=== PATIENT | male | born 1950 | race Caucasian/White ===

== ENCOUNTER 2024-11-04 18:11 | Inpatient (IN) | payer OTHER ==
--- OUTSIDE RECORDS SUMMARY | 2024-11-04 18:18 | XMS REPORT | Continuity of Care Document ---
Author Name Unknown Address [address] [facility] [place] [address] [facility] Address [address] [facility] [address] [place] [address] Care Team Providers Care Director Of Financial Aid Name Role Phone ETHAN ROCA Primary Care Physician Jade vailable RADIOLOGY Attending Clinician Unavailable Radiology Attending Clinician Unavailable Doctor Unassigned, [place] Attending Clinician U abena Mead RN, Jorge Jessica Attending Clinician Unavail able TYE CANCINO Attending Clinician Unavailable Moi ANNE, Tobias B Attending Clinician [phone] Tye Cancino MD Attending Clinician [phone] ETHAN ROCA Admitting Clinician Unavai TYE Miller Admitting Clinician Unavailable Tye Cancino MD Admitting Clinician [phone] Payers Payer Name Policy Type Policy Number Effective Date Expirati on Date Source MEDICARE PART A \\T\\ [id number] 2014 00:00:00 Problems Condition Name Condition Details Condition Category Status Onset Date Resolution Date Last Treatment Date Treating Clinician Comments Source Osteomyeli tis Osteomyeli tis Disease Active 11-09 00:00: 00 [facility] No known active problems No known active problems Disease [facility] Allergies, Adverse Reactions, Alerts Allergy Name Allergy Type Status Severity Reaction(s) Onset Date Inactive Date Treating Clinician Comments Source NO KNOWN ALLERGIE S Drug Class Active [facility] Social History Social Habit Start Date Stop Date Quantity Comments Source History of tobacco use Current smoker [facility] Exposure to SARS-CoV-2 (event) Not sure [facility] Tobacco use and exposure 2021-11-09 00:00:00 2021-11-09 00:00:00 Smokeless tobacco non-user [facility] Education 2021-11-09 00:00:00 2021-11-09 00:00:00 15 [facility] Sex Assigned At 1950 00:00:00 1950 00:00:00 [facility] Smoking Status Start Date Stop Date Source Unknown if ever smoked Unive [facility] Ex-smoker 2021-11-09 00:00:00 2021-11-09 [facility] Ordered Medication Name Filled Medication Name Start Date Stop Date Current Medication? Ordering Clinician Indication Dosage Frequency Signature (SIG) Comments Components Source cephalexin 250 mg tablet 10-22 00:00: 00 Yes 1mg David Carballo gabapentin 100 mg capsule 2022-09 2- 00:00: 00 Yes David Carballo Harvoni 90 mg-400 mg tablet 03-01 00:00: 00 Yes David Carballo Harvoni 90 mg-400 mg tablet 02-08 00:00: 00 Yes [id number] David Carballo Harvoni 90 mg-400 mg tablet 01-12 00:00: 00 Yes David Carballo TAKE 1 TABLET ONCE DAILY. 01-11 00:00: 00 01-21 00:00 :00 No [id number] David Carballo TAKE 1 TABLET ONCE DAILY. 01-09 00:00: 00 01-21 00:00 :00 No [id number] David Carballo TAKE 3 TABLETS DAILY WITH FOOD. -30 00:00: 00 01-21 00:00 :00 No [id number] David Carballo TAKE 1 TABLET TODAY THEN 1/2 TABLET DAILY FOR 4 DAYS 4-26 00:00: 00 01-21 00:00 :00 No 500 David Carballo Dose Unknown 2021-09 2-15 00:00: 00 Yes David Carballo ceftriaxone 10 gram solution for injection 9-14 00:00: 00 Yes David Carballo ceftriaxone 1 gram solution for injection -19 00:00: 00 Yes David Carballo sulfamethox azole 800 mg-trimetho prim 160 mg tablet -18 00:00: 00 Yes David Carballo vancomycin 1,000 mg intravenous injection -03 00:00: 00 Yes 1 David Carballo ceftriaxone 1 gram solution for injection -19 00:00: 00 Yes 1 David Cabrallo Dose Unknown 08 00:00: 00 Yes David Carballo docusate sodium (DULCOLAX STOOL SOFTENER, DSS, ORAL) 11-12 14:35: 32 Yes Take by mouth daily. [facility] sulfamethox azole-trime thoprim 800-160 mg per tablet 11-12 12:30: 51 11-12 00:00 :00 No 1{tbl} Take 1 tablet by mouth 2 (two) times daily. [facility] vancomycin 1500 mg in NS 500 mL IV Piggyback RTU 1,500 mg 11-12 00:00: 00 Yes 1500mg 1,500 mg, IV Piggyback, Q12H ABX, First dose (after last modificati on) on Sun11/11/21 at 1800, Until Discontinu ed, Administer over 90 Minutes
Reason for Anti-Infec tive: Documented Infection& lt;br>Docu mented Infection Site: Bone
Du ration of Therapy: Other (see Comments) [facility] cefTRIAXone (ROCEPHIN) 1,000 mg in NaCl 0.9% (NS) 50 mL MINI-BAG 04 23:45: 00 Yes 1000mg 1,000 mg, IV Piggyback, Q24H ABX, First dose on Sun11/11/21 at 1745, Until Discontinu ed, Administer over 30 Minutes, 50 mL
Reas on for Anti-Infec tive: Documented Infection< br>Documen lore Infection Site: Bone
Du ration of Therapy: 14 days [facility] ceFEPIme (MAXIPIME) 2 g in NaCl 0.9% (NS) 100 mL MINI-BAG 11-11 02:00: 00 11-11 22:45 :12 No 2g 2 g, IV Piggyback, Q8H ABX, First dose (after last modificati on) on [place] 11/10/21 at 2000, Until Discontinu ed, Administer over 4 Hours, 100 mL
Reas on for Anti-Infec tive: Empiric Therapy for Suspected Infection< br>Empiric Therapy Site: Bone
Du ration of therapy: 7 days [facility] lidocaine 1% (PF) (XYLOCAINE) injection 5 mL 11-11 01:30: 00 11-11 16:30 :00 No 5mL 5 mL, Subcutaneo us, ONCE, 1 dose, On [place] 11/10/21 at 1930, Routine [facility] NaCl 0.9% (NS) injection 10 mL 11-11 01:21: 13 Yes 10mL 10 mL, Slow IV Push, PRN, Starting on Sun11/10/21 at 1921, Until Discontinu ed, Routine, line maincristianc e [facility] Dose Unknown 11-11 00:00: 00 Yes David Cabrallo enoxaparin (LOVENOX) injection 40 mg 11-10 15:00: 00 Yes 40mg 40 mg, Subcutaneo us, DAILY, First dose on Sun11/10/21 at 0900, Until Discontinu ed, Routine [facility] Sliding Scale Insulin-Reg ular + Fsbg Testing 11-10 13:30: 00 Yes Subcutaneo us, AC, First dose on Sun11/10/21 at 0730, Until Discontinu ed, Routine [facility] vancomycin 1250 mg in NS 250 mL RTU IV Piggyback 1,250 mg 11-10 12:00: 00 11-11 21:40 :33 No 15mg/kg 1,250 mg (rounded from 1,299 mg = 15 mg/kg ?86.6 kg), IV Piggyback, Q12H ABX, First dose (after last reorder) on Sun11/10/21 at 0600, Until Discontinu ed, Administer over 90 Minutes
Reason for Anti-Infec tive: Documented Infection< br>Documen lore Infection Site: Bone
Du ration of Therapy: Other (see Comments) [facility] docusate (COLACE) capsule 200 mg 11-10 06:00: 00 Yes 200mg 200 mg, Oral, DAILY, First dose on [place] 11/10/21 at 0000, Until Discontinu ed [facility] glucagon (GLUCAGEN DIAGNOSTIC KIT) injection 1 mg 11-10 03:02: 29 Yes 1mg 1 mg, Intramuscu lar, PRN, Starting on Sun11/09/21 at 2102, Until Discontinu ed, SUKHDEEP, Blood Glucose < or = 70 mg/dL and patient is unable to swallow or has mental changes. [facility] dextrose 50 % in water (D50W) injection 25 mL 11-10 03:02: 29 Yes 25mL 25 mL, Slow IV Push, PRN, Starting on Sun11/09/21 at 2102, Until Discontinu ed, SUKHDEEP, Blood Glucose < or = 70 mg/dL and patient is unable to swallow or has mental status changes. [facility] ondansetron (ZOFRAN (PF)) injection 4 mg 11-10 03:00: 14 Yes 4mg 4 mg, Slow IV Push, Q6HPRN, Starting on Sun11/09/21 at 2100, Until Discontinu ed, Routine, Nausea and Vomiting (N/V) [facility] acetaminoph en (TYLENOL) tablet 650 mg 11-10 02:59: 51 Yes 650mg 650 mg, Oral, Q6HPRN, Starting on Sun11/09/21 at 2058, Until Discontinu ed, Routine, Pain (scale 1-3) [facility] NaCl 0.9% (NS) bolus infusion 1,000 mL 11-10 01:15: 00 11-10 01:40 :00 No 1000mL at 999 mL/hr, 1,000 mL, IV Infusion, ONCE, 1 dose, On Sun11/09/21 at 1915, SUKHDEEP [facility] ceFEPIme (MAXIPIME) 2 g in NaCl 0.9% (NS) 100 mL MINI-BAG 11-10 01:00: 00 11-10 18:42 :35 No 2g 2 g, IV Piggyback, Q8H ABX, First dose on Sun11/09/21 at 1900, Until Discontinu ed, Administer over 30 Minutes, 100 mL
Reas on for Anti-Infec tive: Empiric Therapy for Suspected Infection< br>Empiric Therapy Site: Bone
Du ration of therapy: 7 days [facility] ceFEPIme (MAXIPIME) injection 2,000 mg 11-10 00:45: 00 11-10 00:45 :00 No 2000mg 2,000 mg, IV Piggyback, ONCE, 1 dose, On Sun11/09/21 at 1845, STAT
Re ason for Anti-Infec tive: Documented Infection< br>Documen lore Infection Site: Bone
Du ration of Therapy: Other (see Comments) [facility] vancomycin 1250 mg in NS 250 mL RTU IV Piggyback 1,250 mg 11-10 00:45: 00 11-10 01:24 :00 No 15mg/kg 1,250 mg (rounded from 1,299 mg = 15 mg/kg ?86.6 kg), IV Piggyback, ONCE, 1 dose, On Sun11/09/21 at 1845, Administer over 90 Minutes
Reason for Anti-Infec tive: Documented Infection< br>Documen lore Infection Site: Bone
Du ration of Therapy: Other (see Comments) [facility] Dose Unknown 11-10 00:00: 00 Yes David Carballo gadoteridol (PROHANCE-2 0 mL) injection 0.2 mL/kg 11-08 21:15: 00 11-08 21:01 :00 No [id number] .2mL/kg 0.2 mL/kg, Intravenou s, ONCE, 1 dose, On Sun11/08/21 at 1515, Routine [facility] Dose Unknown 11-07 00:00: 00 Yes David Carballo sulfamethox azole 800 mg-trimetho prim 160 mg tablet 11-07 00:00: 00 Yes [id number] David Carballo Dose Unknown 2- 00:00: 00 Yes David Carballo Immunizations Ordered Immunization Name Filled Immunization Name Date Status Comments Source influenza, seasonal vaccine, quadrivalent, adjuvanted, .5mL dose, preservative-free influenza, seasonal vaccine, quadrivalent, adjuvanted, .5mL dose, preservative-free 2024-07-22 00:00:00 Completed David Carballo Vital Signs Vital Name Observation Time Observation Value Comments S ource Systolic blood pressure 2021-11-12 18:04:00 117 mm[Hg] [facility] Diastolic blood pressure 2021-11-12 18:04:00 62 mm[Hg] [facility] Heart rate 2021-11-12 18:04:00 72 /min [facility] Body temperature 2021-11-12 18:04:00 36.17 [facility] Respiratory rate 2021-11-12 18:04:00 16 /min [facility] Oxygen saturation in Arterial blood by Pulse oximetry 2021-11-12 18:04:00 95 /min [facility] Body weight 2021-11-11 09:38:00 86.637 kg [facility] BMI 2021-11-11 09:38:00 25.20 kg/m2 [facility] Body height 2021-11-10 03:26:00 185.4 cm [facility] BP Systolic 2024-10-22 13:14:00 144 mm[Hg] Carlos Carballo BP Diastolic 2024-10-22 13:14:00 82 mm[Hg] Josesito Carballo Weight Measured 2024-10-22 13:14:00 205.60 pounds David Carballo Height Measured 2024-10-22 13:14:00 74.00 inches David Carballo Body Temperature 2024-10-22 13:14:00 97.50 degrees David F Haris Heart Rate 2024-10-22 13:14:00 75.00 /min Shayla en F Haris Respiratory Rate 2024-10-22 13:14:00 18.00 /min David F Haris BP Systolic 2024-07-22 13:38:00 131 mm[Hg] Step hen F Haris BP Diastolic 2024-07-22 13:38:00 78 mm[Hg] Josesito phen F Haris Weight Measured 2024-07-22 13:38:00 199.60 pounds David F Haris Height Measured 2024-07-22 13:38:00 74.00 inches David F Haris Body Temperature 2024-07-22 13:38:00 98.70 degrees David F Haris Heart Rate 2024-07-22 13:38:00 79.00 /min Shayla en F Haris Respiratory Rate 2024-07-22 13:38:00 18.00 /min David F Haris BP Systolic 2024-04-22 13:38:00 133 mm[Hg] Step hen F Haris BP Diastolic 2024-04-22 13:38:00 84 mm[Hg] Josesito phen F Haris Weight Measured 2024-04-22 13:38:00 204.10 pounds David F Haris Height Measured 2024-04-22 13:38:00 74.00 inches David F Haris Body Temperature 2024-04-22 13:38:00 97.60 degrees David F Haris Heart Rate 2024-04-22 13:38:00 77.00 /min Shayla en F Haris Respiratory Rate 2024-04-22 13:38:00 16.00 /min David F Haris BP Systolic 2024-01-30 13:28:00 112 mm[Hg] Step hen F Haris BP Diastolic 2024-01-30 13:28:00 70 mm[Hg] Josesito phen F Haris Weight Measured 2024-01-30 13:28:00 198.60 pounds David F Haris Height Measured 2024-01-30 13:28:00 74.00 inches David F Haris Body Temperature 2024-01-30 13:28:00 98.20 degrees David F Haris Heart Rate 2024-01-30 13:28:00 83.00 /min Shayla en F Haris Respiratory Rate 2024-01-30 13:28:00 18.00 /min David F Haris BP Systolic 2023-10-17 13:43:00 129 mm[Hg] Step hen F Haris BP Diastolic 2023-10-17 13:43:00 73 mm[Hg] Josesito phen F Haris Weight Measured 2023-10-17 13:43:00 198.00 pounds David F Haris Height Measured 2023-10-17 13:43:00 74.00 inches David F Haris Body Temperature 2023-10-17 13:43:00 98.20 degrees David F Haris Heart Rate 2023-10-17 13:43:00 75.00 /min Shayla en F Haris Respiratory Rate 2023-10-17 13:43:00 17.00 /min David F Haris BP Systolic 2023-08-20 11:33:00 135 mm[Hg] Step hen F Haris BP Diastolic 2023-08-20 11:33:00 82 mm[Hg] Josesito phen F Haris Weight Measured 2023-08-20 11:33:00 197.40 pounds David F Haris Height Measured 2023-08-20 11:33:00 74.00 inches David F Haris Body Temperature 2023-08-20 11:33:00 98.10 degrees David F Haris Heart Rate 2023-08-20 11:33:00 80.00 /min Shayla en F Haris Respiratory Rate 2023-08-20 11:33:00 19.00 /min David F Haris BP Systolic 2023-07-12 15:51:00 146 mm[Hg] Step hen F Haris BP Diastolic 2023-07-12 15:51:00 74 mm[Hg] Josesito phen F Haris Weight Measured 2023-07-12 15:51:00 201.80 pounds David F Haris Height Measured 2023-07-12 15:51:00 74.00 inches David F Haris Body Temperature 2023-07-12 15:51:00 98.20 degrees David F Haris Heart Rate 2023-07-12 15:51:00 78.00 /min Shayla en F Haris Respiratory Rate 2023-07-12 15:51:00 19.00 /min David F Haris BP Systolic 2023-05-03 14:52:00 151 mm[Hg] Step hen F Haris BP Diastolic 2023-05-03 14:52:00 79 mm[Hg] Josesito phen F Haris Weight Measured 2023-05-03 14:52:00 197.60 pounds David F Haris Height Measured 2023-05-03 14:52:00 74.00 inches David F Haris Body Temperature 2023-05-03 14:52:00 98.30 degrees David F Haris Heart Rate 2023-05-03 14:52:00 82.00 /min Shayla en F Haris Respiratory Rate 2023-05-03 14:52:00 19.00 /min David F Haris BP Systolic 2023-01-03 13:40:00 132 mm[Hg] Step hen F Haris BP Diastolic 2023-01-03 13:40:00 80 mm[Hg] Josesito phen F Haris Weight Measured 2023-01-03 13:40:00 206.00 pounds David F Haris Height Measured 2023-01-03 13:40:00 74.00 inches David F Haris Body Temperature 2023-01-03 13:40:00 98.20 degrees David F Haris Heart Rate 2023-01-03 13:40:00 85.00 /min Shayla en F Haris Respiratory Rate 2023-01-03 13:40:00 18.00 /min David F Haris BP Systolic 2022-12-14 13:34:00 125 mm[Hg] Step hen F Haris BP Diastolic 2022-12-14 13:34:00 72 mm[Hg] Josesito phen F Haris Weight Measured 2022-12-14 13:34:00 199.80 pounds David F Haris Height Measured 2022-12-14 13:34:00 74.00 inches David F Haris Body Temperature 2022-12-14 13:34:00 98.30 degrees David F Haris Heart Rate 2022-12-14 13:34:00 85.00 /min Shayla en F Haris Respiratory Rate 2022-12-14 13:34:00 18.00 /min David F Ahris BP Systolic 2022-11-14 13:28:00 138 mm[Hg] Step hen F Haris BP Diastolic 2022-11-14 13:28:00 81 mm[Hg] Josesito phen F Haris Weight Measured 2022-11-14 13:28:00 202.00 pounds David Carballo Height Measured 2022-11-14 13:28:00 74.00 inches David F Haris Body Temperature 2022-11-14 13:28:00 97.90 degrees David F Haris Heart Rate 2022-11-14 13:28:00 74.00 /min Shayla en F Haris Respiratory Rate 2022-11-14 13:28:00 18.00 /min David F Haris BP Systolic 2022-03-23 17:03:00 145 mm[Hg] Step hen F Haris BP Diastolic 2022-03-23 17:03:00 78 mm[Hg] Josesito phen F Haris Weight Measured 2022-03-23 17:03:00 178.00 pounds David F Haris Height Measured 2022-03-23 17:03:00 74.00 inches Dvaid F Haris Body Temperature 2022-03-23 17:03:00 98.40 degrees David F Haris Heart Rate 2022-03-23 17:03:00 80.00 /min Shayla en F Haris Respiratory Rate 2022-03-23 17:03:00 18.00 /min David F Haris BP Systolic 2021-12-26 17:48:00 148 mm[Hg] Step hen F Haris BP Diastolic 2021-12-26 17:48:00 78 mm[Hg] Josesito phen F Haris Weight Measured 2021-12-26 17:48:00 186.40 pounds Davidxavier Carballo Height Measured 2021-12-26 17:48:00 74.00 inches David F Haris Body Temperature 2021-12-26 17:48:00 98.30 degrees David F Haris Heart Rate 2021-12-26 17:48:00 78.00 /min Shayla en F Haris Respiratory Rate 2021-12-26 17:48:00 16.00 /min David F Haris Procedures Procedure Date / Time Performed Performing Clinician Source US ABDOMEN LIMITED WITH DOPPLER 2022-12-19 19:42:56 Requisition, Paper [facility] ASSIGNMENT OF BENEFITS 2022-12-19 18:47:22 Docto r Unassigned, [place] [facility] POCT GLUCOSE (AUTOMATED) 2021-11-12 18:05:00 Tye Cancino [facility] POCT GLUCOSE (AUTOMATED) 2021-11-12 14:04:00 Tye Cancino [facility] POCT GLUCOSE (AUTOMATED) 2021-11-11 22:46:00 Tye Cancino [facility] XR CHEST 1 VW 2021-11-11 19:36:32 Raf M[facility] ASPIRATE OR ABSCESS CULTURE(AEROBIC/ANAEROBIC ) 2021-11-11 13:53:00 Dinh Honeycutt [facility] BASIC METABOLIC PANEL (NA, K, CL, CO2, GLUCOSE, BUN, CREATININE, CA) 2021-11-11 12:27:00 Raf Mello [facility] VANCOMYCIN TROUGH 2021-11-11 12:27:00 Sharon Lewis [facility] CBC WITH DIFF 2021-11-11 12:27:00 Raf Mello [facility] POCT GLUCOSE (AUTOMATED) 2021-11-10 22:34:00 Tye Cancino [facility] BLOOD CULTURE SCREEN 2021-11-10 19:59:00 Dana Parker [facility] BLOOD CULTURE SCREEN 2021-11-10 19:51:00 Dana Parker [facility] C-REACTIVE PROTEIN 2021-11-10 19:51:00 Dana Parker [facility] SEDIMENTATION RATE 2021-11-10 19:51:00 Dana Parker [facility] POCT GLUCOSE (AUTOMATED) 2021-11-10 17:58:00 Tye Cancino [facility] BASIC METABOLIC PANEL (NA, K, CL, CO2, GLUCOSE, BUN, CREATININE, CA) 2021-11-10 08:55:00 Sharon Lewis [facility] CBC WITH DIFF 2021-11-10 08:50:00 Sharon Lewis [facility] GLYCOSYLATED HEMOGLOBIN (A1C) 2021-11-10 08:50:00 Joshua Wilson [facility] HB ECG ROUTINE & RHYTHM STRIP 2021-11-10 00:13:47 Tobias Prater [facility] LACTIC ACID WHOLE BLOOD 2021-11-09 22:44:00 Tobias Prater [facility] COVID-19 (ID NOW RAPID TESTING) 2021-11-09 22:43:00 Tobias Prater [facility] LAB ONLY COVID INTERPRETATION 2021-11-09 22:43:00 Tobias Prater [facility] COMP. METABOLIC PANEL ([id number]) 2021-11-09 22:43:00 Tobias Prater [facility] CBC WITH DIFF 2021-11-09 22:43:00 [facility]REFUSAL FOR DIAGNOSIS AND TREATMENT 2021-11-09 20:28:41 Doctor Unassigned, [place] [facility] MR FOOT LEFT W WO CONTRAST 2021-11-08 21:01:14 Requisition, Paper [facility] XR FOOT 3+ VW LEFT 2021-10-26 19:00:00 Requisition, Pa per [facility] ASSIGNMENT OF BENEFITS 2021-10-26 18:41:04 Docto r Unassigned, [place] [facility] Encounters Start Date/Time End Date/Time Encounter Type Admission Type Attending [facility] Care Facility Care Department Encounter ID Source 2024-10-22 13:13:16 2024-10-22 13:13:16 Outpatient [facility] [id number] David Carballo 2024-10-22 00:00:00 2024-10-22 00:00:00 Outpatient Visit [facility] [id number] David Carballo 2024-07-22 13:33:24 2024-07-22 13:33:24 Outpatient [facility] [id number] David Carballo 2024-07-22 00:00:00 2024-07-22 00:00:00 Outpatient Visit [facility] [id number] David Carballo 2024-06-19 13:43:43 2024-06-19 13:43:43 Outpatient [facility] [id number] David Carballo 2024-04-22 13:32:06 2024-04-22 13:32:06 Outpatient [facility] [place] [id number] David Carballo 2024-04-22 00:00:00 2024-04-22 00:00:00 Outpatient Visit [facility] [id number] David Carballo 2024-01-30 13:25:19 2024-01-30 13:25:19 Outpatient [facility] [id number] David Carballo 2024-01-30 00:00:00 2024-01-30 00:00:00 Outpatient Visit [facility] [id number] David Carballo 2023-10-17 13:32:29 2023-10-17 13:32:29 Outpatient [facility] [place] [id number] David Carballo 2023-08-20 11:27:01 2023-08-20 11:27:01 Outpatient [facility] [place] [id number] David Carballo 2023-07-12 15:37:27 2023-07-12 15:37:27 Outpatient [facility] [place] [id number] David Carballo 2023-05-03 14:34:38 2023-05-03 14:34:38 Outpatient [facility] [place] [id number] David Carballo 2023-01-08 17:13:17 2023-01-08 17:13:17 Outpatient [facility] [place] [id number] David Carballo 2022-12-19 13:48:42 2022-12-19 23:59:00 Outpatient [facility] [id number] [facility] 2022-12-19 13:48:42 2022-12-19 23:59:00 Hospital Encounter Radiology [facility] [id number] [id number] [id number] [facility] 2022-12-19 00:00:00 2022-12-19 00:00:00 Orders Only Doctor Unassigned, [place] [facility] [id number] [id number] [id number] [facility] 2022-12-18 13:42:50 2022-12-18 13:42:[address] [id number] David Pham Haris 2022-12-14 13:33:21 2022-12-14 13:33:21 [address] [id number] David Pham [place] 2022-11-28 13:04:17 2022-11-28 13:04:17 [address] [id number] David Pham [place] 2022-11-27 15:47:57 2022-11-27 15:47:57 [address] [id number] David Pham [place] 2022-11-14 13:17:04 2022-11-14 13:17:04 [address] [id number] David Pham [place] 2021-11-14 00:00:00 2021-11-14 00:00:00 Transition of Care Jorge Mead EDGARD TREVINO 1..840.114 [id number] [id number] [facility] 2021-11-09 14:42:00 2021-11-12 14:21:00 Inpatient X TYE CANCINO [facility] [id number] [facility] 2021-11-09 14:42:00 2021-11-12 14:21:00 Hospital Encounter Tobias Prater Yaman [facility] 1..840.114 350.1.13.10 [id number] [id number] [facility] 2021-11-08 13:26:21 2021-11-08 23:59:00 Outpatient [facility] [id number] [facility] 2021-11-08 13:26:21 2021-11-08 23:59:00 Hospital Encounter Radiology [facility] [id number] 350.1.13.10 [id number] [id number] [facility] 2021-10-26 12:41:52 2021-10-26 23:59:00 Hospital Encounter Radiology [facility] [id number] 350.1.13.10 [id number] [id number] [facility] 2021-10-26 12:41:52 2021-10-26 23:59:00 Outpatient [facility] [id number] [facility] 2021-10-26 00:00:00 2021-10-26 00:00:00 Orders Only Doctor Unassigned, [place] [facility] [id number] 350.1.13.10 [id number] [id number] [facility] Results Test Description Test Time Test Comments Results Result Co mments Source COMPREHENSIVE METABOLIC [id number] 04:21:23* Test Item Value Reference Range Interpretation Comme nts GLUCOSE (test code = 2217) 223 MG/DL 70-99 H BUN (test code = 2208) 30 MG/DL 8-23 H CREATININE (test code = 2214) 1.54 MG/DL 0.80-1.40 H eGFR (2020 CKD-EPI) (test code = 35949) 47 ML/MIN/1.73 >60 L The NKF-ASN Taskforce recommends use of Cystatin C to confirm eGFR inadults at risk for CKD. [facility] offers eGFR with Cystatin C-Creatinineusing the 2020 CKD-EPI eGFR_creat-cystat equation (order code 3057) toincrease the accuracy of estimated GFR. For more information, contactyour account administrator or see announcement [email or web address] CALC BUN/CREAT (test code = 2235) 19 RATIO 6-28 SODIUM (test code = 2231) 140 MEQ/L 133-146 POTASSIUM (test code = 2228) 4.8 MEQ/L 3.5-5.4 CHLORIDE (test code = 2215) 101 MEQ/L 95-107 CARBON DIOXIDE (test code = 2206) 28 MEQ/L 19-31 CALCIUM (test code = 220) 9.9 MG/DL 8.5-10.5 PROTEIN, TOTAL (test code = 9) 7.4 G/DL 6.1-8.3 ALBUMIN (test code = 220) 4.5 G/DL 3.5-5.2 CALC GLOBULIN (test code = 2240) 2.9 G/DL 1.9-3.7 CALC A/G RATIO (test code = 2234) 1.6 RATIO 1.0-2.6 BILIRUBIN, TOTAL (test code = 2206) 0.5 MG/DL <=1.2 ALKALINE PHOSPHATASE (test code = 2203) 56 U/L 40-125 AST (test code = 2217) 17 U/L 9-50 ALT (test code = 2218) 13 U/L 5-50 HEMOGLOBIN [id number] 02:55:37* Test Item Value Reference Range Interpretation Comme nts HEMOGLOBIN A1c (test code = 09803) 8.8 % 4.2-5.6 H CITIZEN OF [place] GUIDELINES FOR HGB A1C: PREDIABETES/INCREASED RISK . . . . . . . 5.7-6.4% DIAGNOSIS OF DIABETES . . . . . . . . . >=6.5% WITH CONFIRMATION OR APPROPRIATE SYMPTOMS NOTE: ASSAY MAY BE AFFECTED BY HEMOGLOBINOPATHIES (SICKLE CELL ANEMIA, S-C DISEASE, OTHERS) OR ARTIFICIALLY LOWERED BY DECREASED RED CELL SURVIVAL (HEMOLYTIC ANEMIAS, BLOOD LOSS, ETC.). CONSIDER ALTERNATE TESTING OR LABORATORY CONSULTATION. COMPREHENSIVE METABOLIC [id number] 00:00:00* Test Item Value Reference Range Interpretation Comme nts GLUCOSE (test code = 2216) 223 MG/DL BUN (test code = 2207) 30 MG/DL CREATININE (test code = 2214) 1.54 MG/DL eGFR (2020 CKD-EPI) (test co de = 78126) 47 ML/MIN/1.73 CALC BUN/CREAT (test code = 223) 19 RATIO SODIUM (test code = 223) 140 MEQ/L POTASSIUM (test code = 2228) 4.8 MEQ/L CHLORIDE (test code = 2215) 101 MEQ/L CARBON DIOXIDE (test code = 2206) 28 MEQ/L CALCIUM (test code = 2209) 9.9 MG/DL PROTEIN, TOTAL (test code = 2229) 7.4 G/DL ALBUMIN (test code = 2201) 4.5 G/DL CALC GLOBULIN (test code = 2240) 2.9 G/DL CALC A/G RATIO (test code = 2234) 1.6 RATIO BILIRUBIN, TOTAL (test code = 7) 0.5 MG/DL ALKALINE PHOSPHATASE (test code = 2204) 56 U/L AST (test code = 2218) 17 U/L ALT (test code = 2219) 13 U/L David Pham AustinHEMOGLOBIN [id number] 00:00:00* Test Item Value Reference Range Interpretation Comme nts HEMOGLOBIN A1c (test code = 52006) 8.8 % David Pham AustinALBUMIN/CREATININE RATIO, RANDOM [id number] 00:00:00* Test Item Value Reference Range Interpretation Comme nts CREATININE, URINE, CONC. (te st code = 2072) 156.4 MG/DL ALBUMIN, URINE, RANDOM (test code = 09339) 115.0 MG/DL CALC ALBUMIN/CREAT, RND (chrissy t code = 19235) 735 MG/G David Pham AustinHEMOGLOBIN [id number] 04:37:44* Test Item Value Reference Range Interpretation Comme nts HEMOGLOBIN A1c (test code = 28356) 7.6 % 4.2-5.6 H CITIZEN OF [employer] GUIDELINES FOR HGB A1C: PREDIABETES/INCREASED RISK . . . . . . . 5.7-6.4% DIAGNOSIS OF DIABETES . . . . . . . . . >=6.5% WITH CONFIRMATION OR APPROPRIATE SYMPTOMS NOTE: ASSAY MAY BE AFFECTED BY HEMOGLOBINOPATHIES (SICKLE CELL ANEMIA, S-C DISEASE, OTHERS) OR ARTIFICIALLY LOWERED BY DECREASED RED CELL SURVIVAL (HEMOLYTIC ANEMIAS, BLOOD LOSS, ETC.). CONSIDER ALTERNATE TESTING OR LABORATORY CONSULTATION. LIPID [id number] 02:57:44* Test Item Value Reference Range Interpretation Comme nts CHOLESTEROL (test code = 2210) 148 MG/DL <200 TRIGLYCERIDES (test code = 2232) 118 MG/DL <150 HDL CHOLESTEROL (test code = 2220) 33 MG/DL >39 L CALC LDL CHOL (test code = 2236) 94 MG/DL <100 NOTE: CALCULATED LDL IS BASED ON QUINN-LEMUS METHOD WHICHINCLUDES ADJUSTABLE TRIGLYCERIDE:VLDL CHOLESTEROL RATIO.THIS FACTOR VARIES BY MEASURED TRIGLYCERIDE AND NON-HDLCHOLESTEROL CONCENTRATIONS WITH INCREASED CALCULATED LDL SEENIN HIGHER TRIGLYCERIDE OR LOWER NON-HDL SPECIMENS. FOR MOREINFORMATION, SEE CLIENT ANNOUNCEMENT AT [email or web address] RISK RATIO LDL/HDL (test code = 2237) 2.85 RATIO <3.55 COMPREHENSIVE METABOLIC [id number] 02:57:44* Test Item Value Reference Range Interpretation Comme nts GLUCOSE (test code = 2216) 121 MG/DL 70-99 H BUN (test code = 2207) 22 MG/DL 8-23 CREATININE (test code = 2213) 1.43 MG/DL 0.80-1.40 H eGFR (2020 CKD-EPI) (test code = 81013) 51 ML/MIN/1.73 >60 L The NKF-ASN Taskforc e recommends use of Cystatin C to confirm eGFR inadults at risk for CKD. [facility] offers eGFR with Cystatin C-Creatinineusing the 2020 CKD-EPI eGFR_creat-cystat equation (order code 3057) toincrease the accuracy of estimated GFR. For more information, contactyour account administrator or see announcement [email or web address] CALC BUN/CREAT (test code = 2234) 15 RATIO 6-28 SODIUM (test code = 2230) 142 MEQ/L 133-146 POTASSIUM (test code = 2227) 4.4 MEQ/L 3.5-5.4 CHLORIDE (test code = 2214) 104 MEQ/L 95-107 CARBON DIOXIDE (test code = 2205) 23 MEQ/L 19-31 CALCIUM (test code = 2208) 9.1 MG/DL 8.5-10.5 PROTEIN, TOTAL (test code = 2228) 7.0 G/DL 6.1-8.3 ALBUMIN (test code = 2200) 4.1 G/DL 3.5-5.2 CALC GLOBULIN (test code = 2239) 2.9 G/DL 1.9-3.7 CALC A/G RATIO (test code = 2233) 1.4 RATIO 1.0-2.6 BILIRUBIN, TOTAL (test code = 2207) 0.6 MG/DL <=1.2 ALKALINE PHOSPHATASE (test code = 2204) 48 U/L 40-125 AST (test code = 2218) 25 U/L 9-50 ALT (test code = 2219) 21 U/L 5-50 UNLESS OTHERWISE INDICATED, ALL TESTING PERFORMED AT [facility] [address] [place] [id number] ASSISTANT PROGRAM DIRECTOR: HARIS MORENO M.D. [place] NUMBER [id number] [facility] [place]. [id number] HEMOGLOBIN [id number] 00:00:00* Test Item Value Reference Range Interpretation Comme nts HEMOGLOBIN A1c (test code = 05809) 7.6 % David CarballoLIPID [id number] 00:00:00* Test Item Value Reference Range Interpretation Comme nts CHOLESTEROL (test code = 2210) 148 MG/DL TRIGLYCERIDES (test code = 2232) 118 MG/DL HDL CHOLESTEROL (test code = 2220) 33 MG/DL CALC LDL CHOL (test code = 2237) 94 MG/DL RISK RATIO LDL/HDL (test cod e = 2238) 2.85 RATIO David CarballoCOMPREHENSIVE METABOLIC [id number] 00:00:00* Test Item Value Reference Range Interpretation Comme nts GLUCOSE (test code = 2217) 121 MG/DL BUN (test code = 2208) 22 MG/DL CREATININE (test code = 2214) 1.43 MG/DL eGFR (2020 CKD-EPI) (test co de = 43113) 51 ML/MIN/1.73 CALC BUN/CREAT (test code = 2235) 15 RATIO SODIUM (test code = 2231) 142 MEQ/L POTASSIUM (test code = 2228) 4.4 MEQ/L CHLORIDE (test code = 2215) 104 MEQ/L CARBON DIOXIDE (test code = 2206) 23 MEQ/L CALCIUM (test code = 2209) 9.1 MG/DL PROTEIN, TOTAL (test code = 2229) 7.0 G/DL ALBUMIN (test code = 2201) 4.1 G/DL CALC GLOBULIN (test code = 2240) 2.9 G/DL CALC A/G RATIO (test code = 2234) 1.4 RATIO BILIRUBIN, TOTAL (test code = 2207) 0.6 MG/DL ALKALINE PHOSPHATASE (test code = 2204) 48 U/L AST (test code = 2218) 25 U/L ALT (test code = 2219) 21 U/L David CarballoHEMOGLOBIN [id number] 00:00:00* Test Item Value Reference Range Interpretation Comme lyn HEMOGLOBIN A1c (test code = 37215) 7.6 % David CarballoLIPID [id number] 00:00:00* Test Item Value Reference Range Interpretation Comme nts CHOLESTEROL (test code = 2210) 148 MG/DL TRIGLYCERIDES (test code = 2232) 118 MG/DL HDL CHOLESTEROL (test code = 2220) 33 MG/DL CALC LDL CHOL (test code = 2237) 94 MG/DL RISK RATIO LDL/HDL (test cod e = 2238) 2.85 RATIO David CarballoCOMPREHENSIVE METABOLIC [id number] 00:00:00* Test Item Value Reference Range Interpretation Comme nts GLUCOSE (test code = 2217) 121 MG/DL BUN (test code = 2208) 22 MG/DL CREATININE (test code = 2214) 1.43 MG/DL eGFR (2020 CKD-EPI) (test co de = 07987) 51 ML/MIN/1.73 CALC BUN/CREAT (test code = 2235) 15 RATIO SODIUM (test code = 2231) 142 MEQ/L POTASSIUM (test code = 2228) 4.4 MEQ/L CHLORIDE (test code = 2215) 104 MEQ/L CARBON DIOXIDE (test code = 2206) 23 MEQ/L CALCIUM (test code = 2209) 9.1 MG/DL PROTEIN, TOTAL (test code = 2229) 7.0 G/DL ALBUMIN (test code = 2201) 4.1 G/DL CALC GLOBULIN (test code = 2240) 2.9 G/DL CALC A/G RATIO (test code = 2234) 1.4 RATIO BILIRUBIN, TOTAL (test code = 2207) 0.6 MG/DL ALKALINE PHOSPHATASE (test code = 2204) 48 U/L AST (test code = 2218) 25 U/L ALT (test code = 2219) 21 U/L David Pham AustinCOMPREHENSIVE METABOLIC [id number] 09:30:37* Test Item Value Reference Range Interpretation Comme nts GLUCOSE (test code = 2216) 136 MG/DL 70-99 H BUN (test code = 2207) 24 MG/DL 8-23 H CREATININE (test code = 2213) 1.39 MG/DL 0.80-1.40 eGFR (2020 CKD-EPI) (test code = 96053) 53 ML/MIN/1.73 >60 L The NKF-ASN Taskforce recommends use of Cystatin C to confirm eGFR inadults at risk for CKD. [facility] offers eGFR with Cystatin C-Creatinineusing the 2020 CKD-EPI eGFR_creat-cystat equation (order code 3057) toincrease the accuracy of estimated GFR. For more information, contactur account administrator or see announcement [email or web address] CALC BUN/CREAT (test code = 2234) 17 RATIO 6-28 SODIUM (test code = 2230) 143 MEQ/L 133-146 POTASSIUM (test code = 2227) 4.3 MEQ/L 3.5-5.4 CHLORIDE (test code = 2214) 105 MEQ/L 95-107 CARBON DIOXIDE (test code = 2205) 21 MEQ/L 19-31 CALCIUM (test code = 2208) 9.0 MG/DL 8.5-10.5 PROTEIN, TOTAL (test code = 2228) 7.0 G/DL 6.1-8.3 ALBUMIN (test code = 2200) 4.5 G/DL 3.5-5.2 CALC GLOBULIN (test code = 2240) 2.5 G/DL 1.9-3.7 CALC A/G RATIO (test code = 2233) 1.8 RATIO 1.0-2.6 BILIRUBIN, TOTAL (test code = 2206) 0.6 MG/DL <=1.2 ALKALINE PHOSPHATASE (test code = 2203) 51 U/L 40-125 AST (test code = 2218) 22 U/L 9-50 ALT (test code = 2219) 17 U/L 5-50 LIPID [id number] 09:30:37* Test Item Value Reference Range Interpretation Comme nts CHOLESTEROL (test code = 2209) 158 MG/DL <200 TRIGLYCERIDES (test code = 2232) 171 MG/DL <150 H HDL CHOLESTEROL (test code = 222) 32 MG/DL >39 L CALC LDL CHOL (test code = 2237) 99 MG/DL <100 NOTE: CALCULATED LDL IS BASED ON QUINN-LEMUS METHOD WHICHINCLUDES ADJUSTABLE TRIGLYCERIDE:VLDL CHOLESTEROL RATIO.THIS FACTOR VARIES BY MEASURED TRIGLYCERIDE AND NON-HDLCHOLESTEROL CONCENTRATIONS WITH INCREASED CALCULATED LDL SEENIN HIGHER TRIGLYCERIDE OR LOWER NON-HDL SPECIMENS. FOR MOREINFORMATION, SEE CLIENT ANNOUNCEMENT AT [email or web address] RISK RATIO LDL/HDL (test code = 2238) 3.09 RATIO <3.55 HEMOGLOBIN [id number] 04:35:11* Test Item Value Reference Range Interpretation Comme nts HEMOGLOBIN A1c (test code = 72794) 7.6 % 4.2-5.6 H CITIZEN OF [place] GUIDELINES FOR HGB A1C: PREDIABETES/INCREASED RISK . . . . . . . 5.7-6.4% DIAGNOSIS OF DIABETES . . . . . . . . . >=6.5% WITH CONFIRMATION OR APPROPRIATE SYMPTOMS NOTE: ASSAY MAY BE AFFECTED BY HEMOGLOBINOPATHIES (SICKLE CELL ANEMIA, S-C DISEASE, OTHERS) OR ARTIFICIALLY LOWERED BY DECREASED RED CELL SURVIVAL (HEMOLYTIC ANEMIAS, BLOOD LOSS, ETC.). CONSIDER ALTERNATE TESTING OR LABORATORY CONSULTATION. CBC W/AUTO DIFF WITH [id number] 03:39:00* Test Item Value Reference Range Interpretation Comme nts WBC (test code = 1001) 9.6 K/UL 3.5-11.0 RBC (test code = 1002) 5.55 M/UL 4.50-6.10 HEMOGLOBIN (test code = 1003) 16.6 G/DL 13.5-17.0 HEMATOCRIT (test code = 1004) 48.8 % 40.0-51.0 MCV (test code = 1005) 87.9 fL 80.0-99.0 MCH (test code = 1006) 29.9 PG 25.0-33.0 MCHC (test code = 1007) 34.0 G/DL 31.0-36.0 RDW (test code = 1038) 13.1 % 11.5-15.0 NEUTROPHILS (test code = 1008) 64.1 % LYMPHOCYTES (test code = 1010) 22.9 % MONOCYTES (test code = 1011) 9.4 % EOSINOPHILS (test code = 1012) 2.0 % BASOPHILS (test code = 1013) 1.0 % IMMATURE GRANULOCYTES (test code = 1036) 0.6 % NUCLEATED RBCS (test code = 1065) 0.0 /100 WBC'S See_Comment [Automated message] The system which generated this result transmitted reference range: 0.0. The reference range was not used to interpret this result as normal/abnormal. PLATELET COUNT (test code = 1015) 308 K/UL 130-400 ABSOLUTE NEUTROPHILS (test code = 1066) 6.11 K/UL 1.50-7.50 ABSOLUTE LYMPHOCYTES (test code = 1067) 2.19 K/UL 1.00-4.00 ABSOLUTE MONOCYTES (test code = 1068) 0.90 K/UL 0.20-1.00 ABSOLUTE EOSINOPHILS (test code = 1040) 0.19 K/UL 0.00-0.50 ABSOLUTE BASOPHILS (test code = 1069) 0.10 K/UL 0.00-0.20 ABS IMMATURE GRANULOCYTES (test code = 1020) 0.06 K/UL 0.00-0.10 ABS NUCLEATED RBCS (test code = 80528) 0.00 K/UL 0.00-0.11 UNLESS OTHER MCRAE INDICATED, ALL TESTING PERFORMED AT [facility] [address] [place] [address] ASSISTANT PROGRAM DIRECTOR: HARIS MORENO M.D. IA NUMBER [id number] [facility] [place] [place]. [id number] COMPREHENSIVE METABOLIC [id number] 00:00:00* Test Item Value Reference Range Interpretation Comme nts GLUCOSE (test code = 2217) 136 MG/DL BUN (test code = 2208) 24 MG/DL CREATININE (test code = 2214) 1.39 MG/DL eGFR (2020 CKD-EPI) (test co de = 89614) 53 ML/MIN/1.73 CALC BUN/CREAT (test code = 2235) 17 RATIO SODIUM (test code = 2231) 143 MEQ/L POTASSIUM (test code = 2228) 4.3 MEQ/L CHLORIDE (test code = 2215) 105 MEQ/L CARBON DIOXIDE (test code = 2206) 21 MEQ/L CALCIUM (test code = 2209) 9.0 MG/DL PROTEIN, TOTAL (test code = 2229) 7.0 G/DL ALBUMIN (test code = 2201) 4.5 G/DL CALC GLOBULIN (test code = 2240) 2.5 G/DL CALC A/G RATIO (test code = 2234) 1.8 RATIO BILIRUBIN, TOTAL (test code = 2207) 0.6 MG/DL ALKALINE PHOSPHATASE (test code = 2204) 51 U/L AST (test code = 2218) 22 U/L ALT (test code = 2219) 17 U/L David CarballoLIPID [id number] 00:00:00* Test Item Value Reference Range Interpretation Comme nts CHOLESTEROL (test code = 2210) 158 MG/DL TRIGLYCERIDES (test code = 2232) 171 MG/DL HDL CHOLESTEROL (test code = 2220) 32 MG/DL CALC LDL CHOL (test code = 2237) 99 MG/DL RISK RATIO LDL/HDL (test cod e = 2238) 3.09 RATIO David CarballoHEMOGLOBIN [id number] 00:00:00* Test Item Value Reference Range Interpretation Comme nts HEMOGLOBIN A1c (test code = 39045) 7.6 % David CarballoCBC W/AUTO [id number] 00:00:00* Test Item Value Reference Range Interpretation Comme nts WBC (test code = 1001) 9.6 K/UL RBC (test code = 1002) 5.55 M/UL HEMOGLOBIN (test code = 1003) 16.6 G/DL HEMATOCRIT (test code = 1004) 48.8 % MCV (test code = 1005) 87.9 fL MCH (test code = 1006) 29.9 PG MCHC (test code = 1007) 34.0 G/DL RDW (test code = 1038) 13.1 % NEUTROPHILS (test code = 1008) 64.1 % LYMPHOCYTES (test code = 1010) 22.9 % MONOCYTES (test code = 1011) 9.4 % EOSINOPHILS (test code = 1012) 2.0 % BASOPHILS (test code = 1013) 1.0 % IMMATURE GRANULOCYTES (test code = 1036) 0.6 % NUCLEATED RBCS (test code = 1065) 0.0 /100WBC'S PLATELET COUNT (test code = 1015) 308 K/UL ABSOLUTE NEUTROPHILS (test c ode = 1066) 6.11 K/UL ABSOLUTE LYMPHOCYTES (test c ode = 1067) 2.19 K/UL ABSOLUTE MONOCYTES (test cod e = 1068) 0.90 K/UL ABSOLUTE EOSINOPHILS (test c ode = 1040) 0.19 K/UL ABSOLUTE BASOPHILS (test cod e = 1069) 0.10 K/UL ABS IMMATURE GRANULOCYTES (t est code = 1020) 0.06 K/UL ABS NUCLEATED RBCS (test cod e = 23465) 0.00 K/UL David CarballoCOMPREHENSIVE METABOLIC [id number] 00:00:00* Test Item Value Reference Range Interpretation Comme nts GLUCOSE (test code = 2217) 136 MG/DL BUN (test code = 2208) 24 MG/DL CREATININE (test code = 2214) 1.39 MG/DL eGFR (2020 CKD-EPI) (test co de = 48607) 53 ML/MIN/1.73 CALC BUN/CREAT (test code = 2235) 17 RATIO SODIUM (test code = 2231) 143 MEQ/L POTASSIUM (test code = 2228) 4.3 MEQ/L CHLORIDE (test code = 2215) 105 MEQ/L CARBON DIOXIDE (test code = 2206) 21 MEQ/L CALCIUM (test code = 2209) 9.0 MG/DL PROTEIN, TOTAL (test code = 2229) 7.0 G/DL ALBUMIN (test code = 2201) 4.5 G/DL CALC GLOBULIN (test code = 2240) 2.5 G/DL CALC A/G RATIO (test code = 2234) 1.8 RATIO BILIRUBIN, TOTAL (test code = 2207) 0.6 MG/DL ALKALINE PHOSPHATASE (test code = 2204) 51 U/L AST (test code = 2218) 22 U/L ALT (test code = 2219) 17 U/L David CarballoLIPID [id number] 00:00:00* Test Item Value Reference Range Interpretation Comme nts CHOLESTEROL (test code = 2210) 158 MG/DL TRIGLYCERIDES (test code = 2232) 171 MG/DL HDL CHOLESTEROL (test code = 2220) 32 MG/DL CALC LDL CHOL (test code = 2237) 99 MG/DL RISK RATIO LDL/HDL (test cod e = 2238) 3.09 RATIO David CarballoHEMOGLOBIN [id number] 00:00:00* Test Item Value Reference Range Interpretation Comme nts HEMOGLOBIN A1c (test code = 76345) 7.6 % David CarballoCBC W/AUTO [id number] 00:00:00* Test Item Value Reference Range Interpretation Comme nts WBC (test code = 1001) 9.6 K/UL RBC (test code = 1002) 5.55 M/UL HEMOGLOBIN (test code = 1003) 16.6 G/DL HEMATOCRIT (test code = 1004) 48.8 % MCV (test code = 1005) 87.9 fL MCH (test code = 1006) 29.9 PG MCHC (test code = 1007) 34.0 G/DL RDW (test code = 1038) 13.1 % NEUTROPHILS (test code = 1008) 64.1 % LYMPHOCYTES (test code = 1010) 22.9 % MONOCYTES (test code = 1011) 9.4 % EOSINOPHILS (test code = 1012) 2.0 % BASOPHILS (test code = 1013) 1.0 % IMMATURE GRANULOCYTES (test code = 1036) 0.6 % NUCLEATED RBCS (test code = 1065) 0.0 /100WBC'S PLATELET COUNT (test code = 1015) 308 K/UL ABSOLUTE NEUTROPHILS (test c ode = 1066) 6.11 K/UL ABSOLUTE LYMPHOCYTES (test c ode = 1067) 2.19 K/UL ABSOLUTE MONOCYTES (test cod e = 1068) 0.90 K/UL ABSOLUTE EOSINOPHILS (test c ode = 1040) 0.19 K/UL ABSOLUTE BASOPHILS (test cod e = 1069) 0.10 K/UL ABS IMMATURE GRANULOCYTES (t est code = 1020) 0.06 K/UL ABS NUCLEATED RBCS (test cod e = 86298) 0.00 K/UL David CarballoCOMPREHENSIVE METABOLIC [id number] 00:00:00* Test Item Value Reference Range Interpretation Comme nts GLUCOSE (test code = 2217) 136 MG/DL BUN (test code = 2208) 24 MG/DL CREATININE (test code = 2214) 1.39 MG/DL eGFR (2020 CKD-EPI) (test co de = 29466) 53 ML/MIN/1.73 CALC BUN/CREAT (test code = 2235) 17 RATIO SODIUM (test code = 2231) 143 MEQ/L POTASSIUM (test code = 2228) 4.3 MEQ/L CHLORIDE (test code = 2215) 105 MEQ/L CARBON DIOXIDE (test code = 2206) 21 MEQ/L CALCIUM (test code = 2209) 9.0 MG/DL PROTEIN, TOTAL (test code = 2229) 7.0 G/DL ALBUMIN (test code = 2201) 4.5 G/DL CALC GLOBULIN (test code = 2240) 2.5 G/DL CALC A/G RATIO (test code = 2234) 1.8 RATIO BILIRUBIN, TOTAL (test code = 2207) 0.6 MG/DL ALKALINE PHOSPHATASE (test code = 2204) 51 U/L AST (test code = 2218) 22 U/L ALT (test code = 2219) 17 U/L David CarballoLIPID [id number] 00:00:00* Test Item Value Reference Range Interpretation Comme nts CHOLESTEROL (test code = 2210) 158 MG/DL TRIGLYCERIDES (test code = 2232) 171 MG/DL HDL CHOLESTEROL (test code = 2220) 32 MG/DL CALC LDL CHOL (test code = 2237) 99 MG/DL RISK RATIO LDL/HDL (test cod e = 2238) 3.09 RATIO David CarballoHEMOGLOBIN [id number] 00:00:00* Test Item Value Reference Range Interpretation Comme nts HEMOGLOBIN A1c (test code = 12836) 7.6 % David CarballoCBC W/AUTO [id number] 00:00:00* Test Item Value Reference Range Interpretation Comme nts WBC (test code = 1001) 9.6 K/UL RBC (test code = 1002) 5.55 M/UL HEMOGLOBIN (test code = 1003) 16.6 G/DL HEMATOCRIT (test code = 1004) 48.8 % MCV (test code = 1005) 87.9 fL MCH (test code = 1006) 29.9 PG MCHC (test code = 1007) 34.0 G/DL RDW (test code = 1038) 13.1 % NEUTROPHILS (test code = 1008) 64.1 % LYMPHOCYTES (test code = 1010) 22.9 % MONOCYTES (test code = 1011) 9.4 % EOSINOPHILS (test code = 1012) 2.0 % BASOPHILS (test code = 1013) 1.0 % IMMATURE GRANULOCYTES (test code = 1036) 0.6 % NUCLEATED RBCS (test code = 1065) 0.0 /100WBC'S PLATELET COUNT (test code = 1015) 308 K/UL ABSOLUTE NEUTROPHILS (test c ode = 1066) 6.11 K/UL ABSOLUTE LYMPHOCYTES (test c ode = 1067) 2.19 K/UL ABSOLUTE MONOCYTES (test cod e = 1068) 0.90 K/UL ABSOLUTE EOSINOPHILS (test c ode = 1040) 0.19 K/UL ABSOLUTE BASOPHILS (test cod e = 1069) 0.10 K/UL ABS IMMATURE GRANULOCYTES (t est code = 1020) 0.06 K/UL ABS NUCLEATED RBCS (test cod e = 54673) 0.00 K/UL David CarballoHEMOGLOBIN [id number] 02:34:47* Test Item Value Reference Range Interpretation Comme nts HEMOGLOBIN A1c (test code = 01601) 7.0 % 4.2-5.6 H CITIZEN OF [employer] GUIDELINES FOR HGB A1C: PREDIABETES/INCREASED RISK . . . . . . . 5.7-6.4% DIAGNOSIS OF DIABETES . . . . . . . . . >=6.5% WITH CONFIRMATION OR APPROPRIATE SYMPTOMS NOTE: ASSAY MAY BE AFFECTED BY HEMOGLOBINOPATHIES (SICKLE CELL ANEMIA, S-C DISEASE, OTHERS) OR ARTIFICIALLY LOWERED BY DECREASED RED CELL SURVIVAL (HEMOLYTIC ANEMIAS, BLOOD LOSS, ETC.). CONSIDER ALTERNATE TESTING OR LABORATORY CONSULTATION. UNLESS OTHERWISE INDICATED, ALL TESTING PERFORMED AT [facility] [address] [place] [address] ASSISTANT PROGRAM DIRECTOR: HARIS MORENO M.D. CLIA NUMBER [id number] [facility] [place] [place]. [id number] HEMOGLOBIN [id number] 00:00:00* Test Item Value Reference Range Interpretation Comme nts HEMOGLOBIN A1c (test code = 90223) 7.0 % David Pham AustinHEMOGLOBIN [id number] 00:00:00* Test Item Value Reference Range Interpretation Comme nts HEMOGLOBIN A1c (test code = 12983) 7.0 % David Pham AustinHEMOGLOBIN [id number] 00:00:00* Test Item Value Reference Range Interpretation Comme nts HEMOGLOBIN A1c (test code = 24311) 7.0 % David Pham AustinHEMOGLOBIN [id number] 00:00:00* Test Item Value Reference Range Interpretation Comme nts HEMOGLOBIN A1c (test code = 45195) 7.0 % David F AustinVITAMIN [id number] 21:50:57* Test Item Value Reference Range Interpretation Comme nts VITAMIN B1 (test code = 4952) 151 nmol/L 64-201 This test was de veloped and its performance characteristicsdetermined by [facility] ([facility]). It has not beencleared or approved by the U.S. Food and Drug Administration (FDA).The FDA has determined that such clearance or approval is notnecessary. This test is used for clinical purposes and should not beregarded as investigational or for research. [facility] is qualified toperform high complexity testing under the Clinical LaboratoryImprovement Amendments (CLIA). TESTING PERFORMED AT [facility] [address] [facility] [address], [address] [address] CLIA NO: [id number] VITAMIN [id number] 00:00:00* Test Item Value Reference Range Interpretation Comme nts VITAMIN B1 (test code = 4952) 151 nmol/L David CarballoVITAMIN [id number] 00:00:00* Test Item Value Reference Range Interpretation Comme nts VITAMIN B1 (test code = 4952) 151 nmol/L David CarballoVITAMIN [id number] 00:00:00* Test Item Value Reference Range Interpretation Comme nts VITAMIN B1 (test code = 4952) 151 nmol/L David CarballoVITAMIN [id number] 00:00:00* Test Item Value Reference Range Interpretation Comme nts VITAMIN B1 (test code = 4952) 151 nmol/L David CarballoCOPPER, SERUM/[id number] 15:29:55* Test Item Value Reference Range Interpretation Comme nts COPPER, SERUM/PLASMA (test code = 4219) 976 MCG/L 665-1480 This test was de veloped and its performance characteristicsdetermined by [facility] It has not beencleared or approved by the U.S. Food and Drug Administration (FDA).The FDA has determined that such clearance or approval is notrequired for clinical use of this test. [facility] is regulated under theClinical Laboratory Improvement Amendments of 1988 (CLIA) as qualifiedto perform high complexity clinical testing. UNLESS OTHERWISE INDICATED, ALL TESTING PERFORMED AT [facility] [address] [place] [id number] ASSISTANT PROGRAM DIRECTOR: HARIS MORENO M.D. CLIA NUMBER [id number] [facility] [place]. [id number] SEDIMENTATION [id number] 10:49:22* Test Item Value Reference Range Interpretation Comme nts SEDIMENTATION RATE (test cod e = 1017) 16 MM/HOUR 0-15 H VITAMIN [id number] 05:23:39* Test Item Value Reference Range Interpretation Comme nts VITAMIN B-12 (test code = 2840) 608 PG/ML 200-950 CBC W/AUTO DIFF WITH [id number] 05:05:50* Test Item Value Reference Range Interpretation Comme nts WBC (test code = 1001) 9.3 K/UL 3.5-11.0 RBC (test code = 1002) 5.69 M/UL 4.50-6.10 HEMOGLOBIN (test code = 1003) 16.6 G/DL 13.5-17.0 HEMATOCRIT (test code = 1004) 50.2 % 40.0-51.0 MCV (test code = 1005) 88.2 fL 80.0-99.0 MCH (test code = 1006) 29.2 PG 25.0-33.0 MCHC (test code = 1007) 33.1 G/DL 31.0-36.0 RDW (test code = 1038) 12.7 % 11.5-15.0 NEUTROPHILS (test code = 1008) 70.7 % LYMPHOCYTES (test code = 1010) 20.5 % MONOCYTES (test code = 1011) 7.0 % EOSINOPHILS (test code = 1012) 1.0 % BASOPHILS (test code = 1013) 0.5 % IMMATURE GRANULOCYTES (test code = 1036) 0.3 % NUCLEATED RBCS (test code = 1065) 0.0 /100 WBC'S See_Comment [Automated messa ge] The system which generated this result transmitted reference range: 0.0. The reference range was not used to interpret this result as normal/abnormal. PLATELET COUNT (test code = 1015) 366 K/UL 130-400 ABSOLUTE NEUTROPHILS (test code = 1066) 6.58 K/UL 1.50-7.50 ABSOLUTE LYMPHOCYTES (test code = 1067) 1.91 K/UL 1.00-4.00 ABSOLUTE MONOCYTES (test code = 1068) 0.65 K/UL 0.20-1.00 ABSOLUTE EOSINOPHILS (test code = 1040) 0.09 K/UL 0.00-0.50 ABSOLUTE BASOPHILS (test code = 1069) 0.05 K/UL 0.00-0.20 ABS IMMATURE GRANULOCYTES (test code = 1020) 0.03 K/UL 0.00-0.10 ABS NUCLEATED RBCS (test code = 85816) 0.00 K/UL 0.00-0.11 COMPREHENSIVE METABOLIC [id number] 04:39:08* Test Item Value Reference Range Interpretation Comme nts GLUCOSE (test code = 2216) 128 MG/DL 70-99 H BUN (test code = 2207) 21 MG/DL 8-23 CREATININE (test code = 2213) 1.39 MG/DL 0.80-1.40 eGFR (2020 CKD-EPI) (test code = 44277) 53 ML/MIN/1.73 >60 L The NKF-ASN Taskforce recommends use of Cystatin C to confirm eGFR inadults at risk for CKD. [facility] offers eGFR with Cystatin C-Creatinineusing the 2020 CKD-EPI eGFR_creat-cystat equation (order code 3057) toincrease the accuracy of estimated GFR. For more information, contactyour account administrator or see announcement [email or web address] CALC BUN/CREAT (test code = 2234) 15 RATIO 6-28 SODIUM (test code = 2230) 141 MEQ/L 133-146 POTASSIUM (test code = 2227) 4.7 MEQ/L 3.5-5.4 CHLORIDE (test code = 2214) 103 MEQ/L 95-107 CARBON DIOXIDE (test code = 2205) 27 MEQ/L 19-31 CALCIUM (test code = 2208) 9.6 MG/DL 8.5-10.5 PROTEIN, TOTAL (test code = 2228) 7.4 G/DL 6.1-8.3 ALBUMIN (test code = 2200) 4.8 G/DL 3.5-5.2 CALC GLOBULIN (test code = 2239) 2.6 G/DL 1.9-3.7 CALC A/G RATIO (test code = 2233) 1.8 RATIO 1.0-2.6 BILIRUBIN, TOTAL (test code = 2207) 0.6 MG/DL <=1.2 ALKALINE PHOSPHATASE (test code = 2204) 45 U/L 40-125 AST (test code = 2218) 21 U/L 9-50 ALT (test code = 2219) 20 U/L 5-50 COMPREHENSIVE METABOLIC [id number] 00:00:00* Test Item Value Reference Range Interpretation Comme nts GLUCOSE (test code = 2217) 128 MG/DL BUN (test code = 2208) 21 MG/DL CREATININE (test code = 2214) 1.39 MG/DL eGFR (2020 CKD-EPI) (test co de = 33196) 53 ML/MIN/1.73 CALC BUN/CREAT (test code = 2235) 15 RATIO SODIUM (test code = 2231) 141 MEQ/L POTASSIUM (test code = 2228) 4.7 MEQ/L CHLORIDE (test code = 2215) 103 MEQ/L CARBON DIOXIDE (test code = 2206) 27 MEQ/L CALCIUM (test code = 2209) 9.6 MG/DL PROTEIN, TOTAL (test code = 2229) 7.4 G/DL ALBUMIN (test code = 2201) 4.8 G/DL CALC GLOBULIN (test code = 2240) 2.6 G/DL CALC A/G RATIO (test code = 2234) 1.8 RATIO BILIRUBIN, TOTAL (test code = 2207) 0.6 MG/DL ALKALINE PHOSPHATASE (test code = 2204) 45 U/L AST (test code = 2218) 21 U/L ALT (test code = 2219) 20 U/L David Ankit HarisCBC W/AUTO [id number] 00:00:00* Test Item Value Reference Range Interpretation Comme nts WBC (test code = 1001) 9.3 K/UL RBC (test code = 1002) 5.69 M/UL HEMOGLOBIN (test code = 1003) 16.6 G/DL HEMATOCRIT (test code = 1004) 50.2 % MCV (test code = 1005) 88.2 fL MCH (test code = 1006) 29.2 PG MCHC (test code = 1007) 33.1 G/DL RDW (test code = 1038) 12.7 % NEUTROPHILS (test code = 1008) 70.7 % LYMPHOCYTES (test code = 1010) 20.5 % MONOCYTES (test code = 1011) 7.0 % EOSINOPHILS (test code = 1012) 1.0 % BASOPHILS (test code = 1013) 0.5 % IMMATURE GRANULOCYTES (test code = 1036) 0.3 % NUCLEATED RBCS (test code = 1065) 0.0 /100WBC'S PLATELET COUNT (test code = 1015) 366 K/UL ABSOLUTE NEUTROPHILS (test c ode = 1066) 6.58 K/UL ABSOLUTE LYMPHOCYTES (test c ode = 1067) 1.91 K/UL ABSOLUTE MONOCYTES (test cod e = 1068) 0.65 K/UL ABSOLUTE EOSINOPHILS (test c ode = 1040) 0.09 K/UL ABSOLUTE BASOPHILS (test cod e = 1069) 0.05 K/UL ABS IMMATURE GRANULOCYTES (t est code = 1020) 0.03 K/UL ABS NUCLEATED RBCS (test cod e = 51563) 0.00 K/UL David CarballoSEDIMENTATION [id number] 00:00:00* Test Item Value Reference Range Interpretation Comme nts SEDIMENTATION RATE (test cod e = 1017) 16 MM/HOUR David CarballoVITAMIN [id number] 00:00:00* Test Item Value Reference Range Interpretation Comme nts VITAMIN B-12 (test code = 2840) 608 PG/ML David CarballoCOPPER, SERUM/[id number] 00:00:00* Test Item Value Reference Range Interpretation Comme nts COPPER, SERUM/PLASMA (test c ode = 4219) 976 MCG/L David CarballoCOMPREHENSIVE METABOLIC [id number] 00:00:00* Test Item Value Reference Range Interpretation Comme nts GLUCOSE (test code = 2217) 128 MG/DL BUN (test code = 2208) 21 MG/DL CREATININE (test code = 2214) 1.39 MG/DL eGFR (2020 CKD-EPI) (test co de = 26891) 53 ML/MIN/1.73 CALC BUN/CREAT (test code = 2235) 15 RATIO SODIUM (test code = 2231) 141 MEQ/L POTASSIUM (test code = 2228) 4.7 MEQ/L CHLORIDE (test code = 2215) 103 MEQ/L CARBON DIOXIDE (test code = 2206) 27 MEQ/L CALCIUM (test code = 2209) 9.6 MG/DL PROTEIN, TOTAL (test code = 2229) 7.4 G/DL ALBUMIN (test code = 2201) 4.8 G/DL CALC GLOBULIN (test code = 2240) 2.6 G/DL CALC A/G RATIO (test code = 2234) 1.8 RATIO BILIRUBIN, TOTAL (test code = 2207) 0.6 MG/DL ALKALINE PHOSPHATASE (test code = 2204) 45 U/L AST (test code = 2218) 21 U/L ALT (test code = 2219) 20 U/L David Pham HarisCBC W/AUTO [id number] 00:00:00* Test Item Value Reference Range Interpretation Comme nts WBC (test code = 1001) 9.3 K/UL RBC (test code = 1002) 5.69 M/UL HEMOGLOBIN (test code = 1003) 16.6 G/DL HEMATOCRIT (test code = 1004) 50.2 % MCV (test code = 1005) 88.2 fL MCH (test code = 1006) 29.2 PG MCHC (test code = 1007) 33.1 G/DL RDW (test code = 1038) 12.7 % NEUTROPHILS (test code = 1008) 70.7 % LYMPHOCYTES (test code = 1010) 20.5 % MONOCYTES (test code = 1011) 7.0 % EOSINOPHILS (test code = 1012) 1.0 % BASOPHILS (test code = 1013) 0.5 % IMMATURE GRANULOCYTES (test code = 1036) 0.3 % NUCLEATED RBCS (test code = 1065) 0.0 /100WBC'S PLATELET COUNT (test code = 1015) 366 K/UL ABSOLUTE NEUTROPHILS (test c ode = 1066) 6.58 K/UL ABSOLUTE LYMPHOCYTES (test c ode = 1067) 1.91 K/UL ABSOLUTE MONOCYTES (test cod e = 1068) 0.65 K/UL ABSOLUTE EOSINOPHILS (test c ode = 1040) 0.09 K/UL ABSOLUTE BASOPHILS (test cod e = 1069) 0.05 K/UL ABS IMMATURE GRANULOCYTES (t est code = 1020) 0.03 K/UL ABS NUCLEATED RBCS (test cod e = 71791) 0.00 K/UL David Ankit HarisSEDIMENTATION [id number] 00:00:00* Test Item Value Reference Range Interpretation Comme nts SEDIMENTATION RATE (test cod e = 1017) 16 MM/HOUR David CarballoVITAMIN [id number] 00:00:00* Test Item Value Reference Range Interpretation Comme nts VITAMIN B-12 (test code = 2840) 608 PG/ML David CarballoCOPPER, SERUM/[id number] 00:00:00* Test Item Value Reference Range Interpretation Comme lyn COPPER, SERUM/PLASMA (test c ode = 4219) 976 MCG/L David CarballoCOMPREHENSIVE METABOLIC [id number] 00:00:00* Test Item Value Reference Range Interpretation Comme nts GLUCOSE (test code = 2217) 128 MG/DL BUN (test code = 2208) 21 MG/DL CREATININE (test code = 2214) 1.39 MG/DL eGFR (2020 CKD-EPI) (test co de = 44833) 53 ML/MIN/1.73 CALC BUN/CREAT (test code = 2235) 15 RATIO SODIUM (test code = 2231) 141 MEQ/L POTASSIUM (test code = 2228) 4.7 MEQ/L CHLORIDE (test code = 2215) 103 MEQ/L CARBON DIOXIDE (test code = 2206) 27 MEQ/L CALCIUM (test code = 2209) 9.6 MG/DL PROTEIN, TOTAL (test code = 2229) 7.4 G/DL ALBUMIN (test code = 2201) 4.8 G/DL CALC GLOBULIN (test code = 2240) 2.6 G/DL CALC A/G RATIO (test code = 2234) 1.8 RATIO BILIRUBIN, TOTAL (test code = 2207) 0.6 MG/DL ALKALINE PHOSPHATASE (test code = 2204) 45 U/L AST (test code = 2218) 21 U/L ALT (test code = 2219) 20 U/L David CarballoCBC W/AUTO [id number] 00:00:00* Test Item Value Reference Range Interpretation Comme nts WBC (test code = 1001) 9.3 K/UL RBC (test code = 1002) 5.69 M/UL HEMOGLOBIN (test code = 1003) 16.6 G/DL HEMATOCRIT (test code = 1004) 50.2 % MCV (test code = 1005) 88.2 fL MCH (test code = 1006) 29.2 PG MCHC (test code = 1007) 33.1 G/DL RDW (test code = 1038) 12.7 % NEUTROPHILS (test code = 1008) 70.7 % LYMPHOCYTES (test code = 1010) 20.5 % MONOCYTES (test code = 1011) 7.0 % EOSINOPHILS (test code = 1012) 1.0 % BASOPHILS (test code = 1013) 0.5 % IMMATURE GRANULOCYTES (test code = 1036) 0.3 % NUCLEATED RBCS (test code = 1065) 0.0 /100WBC'S PLATELET COUNT (test code = 1015) 366 K/UL ABSOLUTE NEUTROPHILS (test c ode = 1066) 6.58 K/UL ABSOLUTE LYMPHOCYTES (test c ode = 1067) 1.91 K/UL ABSOLUTE MONOCYTES (test cod e = 1068) 0.65 K/UL ABSOLUTE EOSINOPHILS (test c ode = 1040) 0.09 K/UL ABSOLUTE BASOPHILS (test cod e = 1069) 0.05 K/UL ABS IMMATURE GRANULOCYTES (t est code = 1020) 0.03 K/UL ABS NUCLEATED RBCS (test cod e = 09250) 0.00 K/UL David CarballoSEDIMENTATION [id number] 00:00:00* Test Item Value Reference Range Interpretation Comme nts SEDIMENTATION RATE (test cod e = 1017) 16 MM/HOUR David CarballoVITAMIN [id number] 00:00:00* Test Item Value Reference Range Interpretation Comme nts VITAMIN B-12 (test code = 2840) 608 PG/ML David CarballoCOPPER, SERUM/[id number] 00:00:00* Test Item Value Reference Range Interpretation Comme nts COPPER, SERUM/PLASMA (test c ode = 4219) 976 MCG/L David CarballoCOMPREHENSIVE METABOLIC [id number] 00:00:00* Test Item Value Reference Range Interpretation Comme nts GLUCOSE (test code = 2217) 128 MG/DL BUN (test code = 2208) 21 MG/DL CREATININE (test code = 2214) 1.39 MG/DL eGFR (2020 CKD-EPI) (test co de = 79553) 53 ML/MIN/1.73 CALC BUN/CREAT (test code = 2235) 15 RATIO SODIUM (test code = 2231) 141 MEQ/L POTASSIUM (test code = 2228) 4.7 MEQ/L CHLORIDE (test code = 2215) 103 MEQ/L CARBON DIOXIDE (test code = 2206) 27 MEQ/L CALCIUM (test code = 2209) 9.6 MG/DL PROTEIN, TOTAL (test code = 2229) 7.4 G/DL ALBUMIN (test code = 2201) 4.8 G/DL CALC GLOBULIN (test code = 2240) 2.6 G/DL CALC A/G RATIO (test code = 2234) 1.8 RATIO BILIRUBIN, TOTAL (test code = 2207) 0.6 MG/DL ALKALINE PHOSPHATASE (test code = 2204) 45 U/L AST (test code = 2218) 21 U/L ALT (test code = 2219) 20 U/L [facility] [id number] 00:00:00* Test Item Value Reference Range Interpretation Comme nts WBC (test code = 1001) 9.3 K/UL RBC (test code = 1002) 5.69 M/UL HEMOGLOBIN (test code = 1003) 16.6 G/DL HEMATOCRIT (test code = 1004) 50.2 % MCV (test code = 1005) 88.2 fL MCH (test code = 1006) 29.2 PG MCHC (test code = 1007) 33.1 G/DL RDW (test code = 1038) 12.7 % NEUTROPHILS (test code = 1008) 70.7 % LYMPHOCYTES (test code = 1010) 20.5 % MONOCYTES (test code = 1011) 7.0 % EOSINOPHILS (test code = 1012) 1.0 % BASOPHILS (test code = 1013) 0.5 % IMMATURE GRANULOCYTES (test code = 1036) 0.3 % NUCLEATED RBCS (test code = 1065) 0.0 /100WBC'S PLATELET COUNT (test code = 1015) 366 K/UL ABSOLUTE NEUTROPHILS (test c ode = 1066) 6.58 K/UL ABSOLUTE LYMPHOCYTES (test c ode = 1067) 1.91 K/UL ABSOLUTE MONOCYTES (test cod e = 1068) 0.65 K/UL ABSOLUTE EOSINOPHILS (test c ode = 1040) 0.09 K/UL ABSOLUTE BASOPHILS (test cod e = 1069) 0.05 K/UL ABS IMMATURE GRANULOCYTES (t est code = 1020) 0.03 K/UL ABS NUCLEATED RBCS (test cod e = 94805) 0.00 K/UL David CarballoSEDIMENTATION [id number] 00:00:00* Test Item Value Reference Range Interpretation Comme nts SEDIMENTATION RATE (test cod e = 1017) 16 MM/HOUR David CarballoVITAMIN [id number] 00:00:00* Test Item Value Reference Range Interpretation Comme lyn VITAMIN B-12 (test code = 2840) 608 PG/ML David CarballoCOPPER, SERUM/[id number] 00:00:00* Test Item Value Reference Range Interpretation Comme lyn COPPER, SERUM/PLASMA (test c ode = 4219) 976 MCG/L David CarballoHEMOGLOBIN [id number] 02:39:40* Test Item Value Reference Range Interpretation Comme lyn HEMOGLOBIN A1c (test code = 84271) 7.1 % 4.2-5.6 H CITIZEN OF [employer] GUIDELINES FOR HGB A1C: PREDIABETES/INCREASED RISK . . . . . . . 5.7-6.4% DIAGNOSIS OF DIABETES . . . . . . . . . >=6.5% WITH CONFIRMATION OR APPROPRIATE SYMPTOMS NOTE: ASSAY MAY BE AFFECTED BY HEMOGLOBINOPATHIES (SICKLE CELL ANEMIA, S-C DISEASE, OTHERS) OR ARTIFICIALLY LOWERED BY DECREASED RED CELL SURVIVAL (HEMOLYTIC ANEMIAS, BLOOD LOSS, ETC.). CONSIDER ALTERNATE TESTING OR LABORATORY CONSULTATION. UNLESS OTHERWISE INDICATED, ALL TESTING PERFORMED AT [facility] [address] [place] [address] ASSISTANT PROGRAM DIRECTOR: HARIS MORENO M.D. CLIA NUMBER [id number] [facility] [place]. [id number] HEMOGLOBIN [id number] 00:00:00* Test Item Value Reference Range Interpretation Comme lyn HEMOGLOBIN A1c (test code = 33826) 7.1 % David CarballoHEMOGLOBIN [id number] 00:00:00* Test Item Value Reference Range Interpretation Comme lyn HEMOGLOBIN A1c (test code = 42549) 7.1 % David CarballoHEMOGLOBIN [id number] 00:00:00* Test Item Value Reference Range Interpretation Comme nts HEMOGLOBIN A1c (test code = 42970) 7.1 % David CarballoHEMOGLOBIN [id number] 00:00:00* Test Item Value Reference Range Interpretation Comme nts HEMOGLOBIN A1c (test code = 74591) 7.1 % David Pham AustinHIV 1/2 4TH GEN, RFLX [id number] 05:13:07* Test Item Value Reference Range Interpretation Comme nts HIV 1/2 4TH GEN, RFLX CONF (test code = 3514) NON-REACTIVE NON-REACTIVE [facility] has impo rtant pathology staff changes effective 11/08/2022. New pathology staff will provide uninterrupted, excellent patient care and clinical consultation. See URL: [email or web address]. UNLESS OTHERWISE INDICATED, ALL TESTING PERFORMED AT [facility] [address] [place] [address] ASSISTANT PROGRAM DIRECTOR: HARIS MORENO M.D. CLIA NUMBER [id number] [facility] [place]. [id number] HIV AB/AG COMBO RFLX [id number] 00:00:00* Test Item Value Reference Range Interpretation Comme nts HIV 1/2 4TH GEN, RFLX CONF ( test code = 3514) NON-REACTIVE David Pham AustinHIV AB/AG COMBO RFLX [id number] 00:00:00* Test Item Value Reference Range Interpretation Comme nts HIV 1/2 4TH GEN, RFLX CONF ( test code = 3514) NON-REACTIVE David Pham AustinHIV AB/AG COMBO RFLX [id number] 00:00:00* Test Item Value Reference Range Interpretation Comme nts HIV 1/2 4TH GEN, RFLX CONF ( test code = 3514) NON-REACTIVE David Pham AustinHIV AB/AG COMBO RFLX [id number] 00:00:00* Test Item Value Reference Range Interpretation Comme nts HIV 1/2 4TH GEN, RFLX CONF ( test code = 3514) NON-REACTIVE David Pham AustinHEPATITIS C [id number] 15:39:14* Test Item Value Reference Range Interpretation Comme nts HEPATITIS C GENOTYPE (test code = 96585) 1a Assay method ology is real-time PCR amplification of the 5'UTR retLQ3k regions of the HCV genome utilizing the gopogo RealTime HCVGenotype II assay and Sage HCV Genotype Plus assay. Possiblegenotypes include 1a, 1b, 2, 3, 4, 5, and 6. [facility] has important pathology staff changes effective 11/08/2022. New pathology staff will provide uninterrupted, excellent patient care and clinical consultation. See URL: [email or web address]. UNLESS OTHERWISE INDICATED, ALL TESTING PERFORMED AT [facility] [address] [place] [address] ASSISTANT PROGRAM DIRECTOR: HARIS MORENO M.D. [place] NUMBER [id number] [facility] [place] [place]. [id number] HEPATITIS C [id number] 00:00:00* Test Item Value Reference Range Interpretation Comme nts HEPATITIS C GENOTYPE (test c ode = 54392) 1a David Pham AustinHEPATITIS C [id number] 00:00:00* Test Item Value Reference Range Interpretation Comme nts HEPATITIS C GENOTYPE (test c ode = 45713) da Pham AustinHEPATITIS C [id number] 00:00:00* Test Item Value Reference Range Interpretation Comme nts HEPATITIS C GENOTYPE (test c ode = 78527) 1a David Pham AustinHEPATITIS C [id number] 00:00:00* Test Item Value Reference Range Interpretation Comme nts HEPATITIS C GENOTYPE (test c ode = 32441) da CarballoHCV RNA, PCR [id number] 18:28:21* Test Item Value Reference Range Interpretation Comme nts HCV RNA, PCR QUANT (test code = 4571) [id number] IU/ML H HCV VIRAL LOG (test code = 25729) 6.190 LOG IU/ML H HCV RNA was dete cted, indicating current HCV infection. Range of quantitation is 15-100,000,000 IU/mL, (1.176-8.000 logIU/mL). Samples with HCV RNA detected below the limit ofquantitation are reported as <15 IU/mL. Assay methodology ispolymerase chain reaction (PCR) using the Janae Rachel 6800/8800system. The expected range is NOT DETECTED. [facility] has important pathology staff changes effective 11/08/2022. New pathology staff will provide uninterrupted, excellent patient care and clinical consultation. See URL: [email or web address]. UNLESS OTHERWISE INDICATED, ALL TESTING PERFORMED AT [facility] [address] [place] [address] ASSISTANT PROGRAM DIRECTOR: HARIS MORENO M.D. CLIA NUMBER [id number] [facility] [place]. [id number] HCV RNA, PCR QUANT [REFLEX]2022-11-30 00:00:00* Test Item Value Reference Range Interpretation Comme nts HCV RNA, PCR QUANT (test cod e = 4571) [id number] IU/ML HCV VIRAL LOG (test code = 39098) 6.190 LOGIU/ML David F AustinHCV RNA, PCR QUANT [REFLEX]2022-11-30 00:00:00* Test Item Value Reference Range Interpretation Comme nts HCV RNA, PCR QUANT (test cod e = 4571) 2745611 IU/ML HCV VIRAL LOG (test code = 41433) 6.190 LOGIU/ML David F AustinHCV RNA, PCR QUANT [REFLEX]2022-11-30 00:00:00* Test Item Value Reference Range Interpretation Comme nts HCV RNA, PCR QUANT (test cod e = 4571) 5739501 IU/ML HCV VIRAL LOG (test code = 96432) 6.190 LOGIU/ML David F AustinHCV RNA, PCR QUANT [REFLEX]2022-11-30 00:00:00* Test Item Value Reference Range Interpretation Comme nts HCV RNA, PCR QUANT (test cod e = 4571) 5435826 IU/ML HCV VIRAL LOG (test code = 24401) 6.190 LOGIU/ML David F AustinHEPATITIS C REFLEX [id number] 04:15:24* Test Item Value Reference Range Interpretation Comme nts HEPATITIS C ANTIBODY (test c ode = 4675) REACTIVE NON-REACTIVE A HEPATITIS C REFLEX [id number] 00:00:00* Test Item Value Reference Range Interpretation Comme nts HEPATITIS C ANTIBODY (test c ode = 4675) REACTIVE David F AustinHEPATITIS C REFLEX [id number] 00:00:00* Test Item Value Reference Range Interpretation Comme nts HEPATITIS C ANTIBODY (test c ode = 4675) REACTIVE Davdi F AustinHEPATITIS C REFLEX [id number] 00:00:00* Test Item Value Reference Range Interpretation Comme nts HEPATITIS C ANTIBODY (test c ode = 4675) REACTIVE David CarballoHEPATITIS C REFLEX [id number] 00:00:00* Test Item Value Reference Range Interpretation Comme nts HEPATITIS C ANTIBODY (test c ode = 4675) REACTIVE David F AustinOCCULT BLD,FECAL,IMMUNOASSAY [id number] 11:26:25* Test Item Value Reference Range Interpretation Comme nts OCCULT BLD, FECAL (test code = 08097) NEGATIVE NEGATIVE [facility] has important pathology staff changes effective 11/08/2022. New pathology staff will provide uninterrupted, excellent patient care and clinical consultation. See URL: [email or web address]. UNLESS OTHERWISE INDICATED, ALL TESTING PERFORMED AT [facility] [address] [place] [address] ASSISTANT PROGRAM DIRECTOR: HARIS MORENO M.D. CLIA NUMBER [id number] [facility] [place]. [id number] OCCULT BLD,FECAL,IMMUNOASSAY [id number] 00:00:00* Test Item Value Reference Range Interpretation Comme nts OCCULT BLD, FECAL (test code = 66453) NEGATIVE David F AustinOCCULT BLD,FECAL,IMMUNOASSAY [facility] [id number] 00:00:00* Test Item Value Reference Range Interpretation Comme nts OCCULT BLD, FECAL (test code = 48248) NEGATIVE David F AustinOCCULT BLD,FECAL,IMMUNOASSAY [facility] [id number] 00:00:00* Test Item Value Reference Range Interpretation Comme nts OCCULT BLD, FECAL (test code = 41884) NEGATIVE David F AustinOCCULT BLD,FECAL,IMMUNOASSAY [facility] [id number] 00:00:00* Test Item Value Reference Range Interpretation Comme nts OCCULT BLD, FECAL (test code = 07702) NEGATIVE David F AustinPSA, [id number] 05:54:40* Test Item Value Reference Range Interpretation Comme nts PSA, TOTAL (test code = 2606) 2.15 NG/ML See_Comment NOTE: Methodolog y is Janae Rachel Electrochemiluminescence Immunoassay traceable to WHO reference standard 96/760. [Automated message] The system which generated this result transmitted reference range: <=4.00. The reference range was not used to interpret this result as normal/abnormal. HEPATITIS PANEL, [id number] 05:25:07* Test Item Value Reference Range Interpretation Comme nts HEPATITIS A IgM (test code = 40993) NON-REACTIVE NON-REACTIVE HEPATITIS B CORE IgM (test code = 4644) NON-REACTIVE NON-REACTIVE HEPATITIS B SURF AG (test code = 2739) NON-REACTIVE NON-REACTIVE HEPATITIS C ANTIBODY (test code = 4675) REACTIVE NON-REACTIVE A INTERPRETATION HEPATITIS A: (test code = 2552) (NOTE) Hepatitis A serology shows no evidence of acute hepatitis A. INTERPRETATION HEPATITIS B: (test code = 97944) (NOTE) Hepatitis B serology shows no evidence of acute hepatitis B andno indication of exposure to hepatitis B virus in the previous felisa eight months. INTERPRETATION HEPATITIS C: (test code = 21778) (NOTE) Hepatitis C serology is consistent with exposure to hepatitis Cvirus. The CDC recommends performing a supplemental confirmatory teston initial positive hepatitis C antibody tests. HCV PCR quantitativecan be used to confirm these results on a new sample (See MMWR, 2003;52 RR-3). COMPREHENSIVE METABOLIC [id number] 03:59:09* Test Item Value Reference Range Interpretation Comme nts GLUCOSE (test code = 2217) 132 MG/DL 70-99 H BUN (test code = 2208) 27 MG/DL 8-23 H CREATININE (test code = 2214) 1.34 MG/DL 0.80-1.40 eGFR (2020 CKD-EPI) (test code = 96851) 56 ML/MIN/1.73 >60 L The NKF-ASN Taskforce recommends use of Cystatin C to confirm eGFR inadults at risk for CKD. [facility] offers eGFR with Cystatin C-Creatinineusing the 2020 CKD-EPI eGFR_creat-cystat equation (order code 3057) toincrease the accuracy of estimated GFR. For more information, contactyour account administrator or see announcement [email or web address] CALC BUN/CREAT (test code = 223) 20 RATIO 6-28 SODIUM (test code = 2230) 142 MEQ/L 133-146 POTASSIUM (test code = 2228) 5.2 MEQ/L 3.5-5.4 CHLORIDE (test code = 2215) 104 MEQ/L 95-107 CARBON DIOXIDE (test code = 2206) 25 MEQ/L 19-31 CALCIUM (test code = 220) 9.4 MG/DL 8.5-10.5 PROTEIN, TOTAL (test code = 222) 7.2 G/DL 6.1-8.3 ALBUMIN (test code = 2201) 4.6 G/DL 3.5-5.2 CALC GLOBULIN (test code = 2240) 2.6 G/DL 1.9-3.7 CALC A/G RATIO (test code = 2234) 1.8 RATIO 1.0-2.6 BILIRUBIN, TOTAL (test code = 2206) 0.6 MG/DL See_Comment [Automated me ssage] The system which generated this result transmitted reference range: <=1.2. The reference range was not used to interpret this result as normal/abnormal. ALKALINE PHOSPHATASE (test code = 2203) 41 U/L 40-125 AST (test code = 221) 44 U/L 9-50 ALT (test code = 221) 44 U/L 5-50 LIPID [id number] 03:59:09* Test Item Value Reference Range Interpretation Comme nts CHOLESTEROL (test code = 2210) 135 MG/DL <200 TRIGLYCERIDES (test code = 2232) 116 MG/DL <150 HDL CHOLESTEROL (test code = 0) 44 MG/DL >39 CALC LDL CHOL (test code = 2236) 71 MG/DL <100 NOTE: CALCULATED LDL IS BASED ON QUINN-LEMUS METHOD WHICHINCLUDES ADJUSTABLE TRIGLYCERIDE:VLDL CHOLESTEROL RATIO.THIS FACTOR VARIES BY MEASURED TRIGLYCERIDE AND NON-HDLCHOLESTEROL CONCENTRATIONS WITH INCREASED CALCULATED LDL SEENIN HIGHER TRIGLYCERIDE OR LOWER NON-HDL SPECIMENS. FOR MOREINFORMATION, SEE CLIENT ANNOUNCEMENT AT [email or web address] RATIO LDL/HDL (test code = 2238) 1.61 RATIO <3.55 [facility] has i mportant pathology staff changes effective 11/08/2022. New pathology staff will provide uninterrupted, excellent patient care and clinical consultation. See URL: [email or web address]. UNLESS OTHERWISE INDICATED, ALL TESTING PERFORMED AT [facility] [address] [place], [place] [id number] ASSISTANT PROGRAM DIRECTOR: HARIS MORENO M.D. CLIA NUMBER [id number] [facility] [place]. [id number] HEMOGLOBIN [id number] 03:43:21* Test Item Value Reference Range Interpretation Comme nts HEMOGLOBIN A1c (test code = 11138) 7.1 % 4.2-5.6 H CITIZEN OF [employer] GUIDELINES FOR HGB A1C: PREDIABETES/INCREASED RISK . . . . . . . 5.7-6.4% DIAGNOSIS OF DIABETES . . . . . . . . . >=6.5% WITH CONFIRMATION OR APPROPRIATE SYMPTOMS NOTE: ASSAY MAY BE AFFECTED BY HEMOGLOBINOPATHIES (SICKLE CELL ANEMIA, S-C DISEASE, OTHERS) OR ARTIFICIALLY LOWERED BY DECREASED RED CELL SURVIVAL (HEMOLYTIC ANEMIAS, BLOOD LOSS, ETC.). CONSIDER ALTERNATE TESTING OR LABORATORY CONSULTATION. CBC W/AUTO DIFF WITH [id number] 03:12:24* Test Item Value Reference Range Interpretation Comme nts WBC (test code = 1001) 8.2 K/UL 3.5-11.0 RBC (test code = 1002) 5.24 M/UL 4.50-6.10 HEMOGLOBIN (test code = 1003) 15.8 G/DL 13.5-17.0 HEMATOCRIT (test code = 1004) 45.3 % 40.0-51.0 MCV (test code = 1005) 86.5 fL 80.0-99.0 MCH (test code = 1006) 30.2 PG 25.0-33.0 MCHC (test code = 1007) 34.9 G/DL 31.0-36.0 RDW (test code = 1038) 12.6 % 11.5-15.0 NEUTROPHILS (test code = 1008) 66.1 % LYMPHOCYTES (test code = 1010) 22.0 % MONOCYTES (test code = 1011) 8.6 % EOSINOPHILS (test code = 1012) 1.7 % BASOPHILS (test code = 1013) 0.9 % IMMATURE GRANULOCYTES (test code = 1036) 0.7 % NUCLEATED RBCS (test code = 1065) 0.0 /100 WBC'S See_Comment [Automated [employer] ge] The system which generated this result transmitted reference range: 0.0. The reference range was not used to interpret this result as normal/abnormal. PLATELET COUNT (test code = 1015) 262 K/UL 130-400 ABSOLUTE NEUTROPHILS (test code = 1066) 5.42 K/UL 1.50-7.50 ABSOLUTE LYMPHOCYTES (test code = 1067) 1.81 K/UL 1.00-4.00 ABSOLUTE MONOCYTES (test code = 1068) 0.71 K/UL 0.20-1.00 ABSOLUTE EOSINOPHILS (test code = 1040) 0.14 K/UL 0.00-0.50 ABSOLUTE BASOPHILS (test code = 1069) 0.07 K/UL 0.00-0.20 ABS IMMATURE GRANULOCYTES (test code = 1020) 0.06 K/UL 0.00-0.10 ABS NUCLEATED RBCS (test code = 35368) 0.00 K/UL 0.00-0.11 ACUTE HEPATITIS [id number] 00:00:00* Test Item Value Reference Range Interpretation Comme nts HEPATITIS A IgM (test code = 47293) NON-REACTIVE HEPATITIS B CORE IgM (test c ode = 4644) NON-REACTIVE HEPATITIS B SURF AG (test co de = 2739) NON-REACTIVE HEPATITIS C ANTIBODY (test c ode = 4675) REACTIVE INTERPRETATION HEPATITIS A: (test code = 2552) (NOTE) INTERPRETATION HEPATITIS B: (test code = 63952) (NOTE) INTERPRETATION HEPATITIS C: (test code = 09271) (NOTE) David Pham HarisPSA, [id number] 00:00:00* Test Item Value Reference Range Interpretation Comme nts PSA, TOTAL (test code = 2606) 2.15 NG/ML David CarballoCBC W/AUTO [id number] 00:00:00* Test Item Value Reference Range Interpretation Comme nts WBC (test code = 1001) 8.2 K/UL RBC (test code = 1002) 5.24 M/UL HEMOGLOBIN (test code = 1003) 15.8 G/DL HEMATOCRIT (test code = 1004) 45.3 % MCV (test code = 1005) 86.5 fL MCH (test code = 1006) 30.2 PG MCHC (test code = 1007) 34.9 G/DL RDW (test code = 1038) 12.6 % NEUTROPHILS (test code = 1008) 66.1 % LYMPHOCYTES (test code = 1010) 22.0 % MONOCYTES (test code = 1011) 8.6 % EOSINOPHILS (test code = 1012) 1.7 % BASOPHILS (test code = 1013) 0.9 % IMMATURE GRANULOCYTES (test code = 1036) 0.7 % NUCLEATED RBCS (test code = 1065) 0.0 /100WBC'S PLATELET COUNT (test code = 1015) 262 K/UL ABSOLUTE NEUTROPHILS (test c ode = 1066) 5.42 K/UL ABSOLUTE LYMPHOCYTES (test c ode = 1067) 1.81 K/UL ABSOLUTE MONOCYTES (test cod e = 1068) 0.71 K/UL ABSOLUTE EOSINOPHILS (test c ode = 1040) 0.14 K/UL ABSOLUTE BASOPHILS (test cod e = 1069) 0.07 K/UL ABS IMMATURE GRANULOCYTES (t est code = 1020) 0.06 K/UL ABS NUCLEATED RBCS (test cod e = 79119) 0.00 K/UL David CarballoCOMPREHENSIVE METABOLIC [id number] 00:00:00* Test Item Value Reference Range Interpretation Comme nts GLUCOSE (test code = 2217) 132 MG/DL BUN (test code = 2208) 27 MG/DL CREATININE (test code = 2214) 1.34 MG/DL eGFR (2020 CKD-EPI) (test co de = 04318) 56 ML/MIN/1.73 CALC BUN/CREAT (test code = 2235) 20 RATIO SODIUM (test code = 2231) 142 MEQ/L POTASSIUM (test code = 2228) 5.2 MEQ/L CHLORIDE (test code = 2215) 104 MEQ/L CARBON DIOXIDE (test code = 2206) 25 MEQ/L CALCIUM (test code = 2209) 9.4 MG/DL PROTEIN, TOTAL (test code = 2229) 7.2 G/DL ALBUMIN (test code = 2201) 4.6 G/DL CALC GLOBULIN (test code = 2240) 2.6 G/DL CALC A/G RATIO (test code = 2234) 1.8 RATIO BILIRUBIN, TOTAL (test code = 2207) 0.6 MG/DL ALKALINE PHOSPHATASE (test code = 2204) 41 U/L AST (test code = 2218) 44 U/L ALT (test code = 2219) 44 U/L David Ankit HarisHEMOGLOBIN [id number] 00:00:00* Test Item Value Reference Range Interpretation Comme nts HEMOGLOBIN A1c (test code = 51269) 7.1 % David CarballoLIPID [id number] 00:00:00* Test Item Value Reference Range Interpretation Comme nts CHOLESTEROL (test code = 2210) 135 MG/DL TRIGLYCERIDES (test code = 2232) 116 MG/DL HDL CHOLESTEROL (test code = 2220) 44 MG/DL CALC LDL CHOL (test code = 2237) 71 MG/DL RISK RATIO LDL/HDL (test cod e = 2238) 1.61 RATIO David CarballoACUTE HEPATITIS [id number] 00:00:00* Test Item Value Reference Range Interpretation Comme nts HEPATITIS A IgM (test code = 20519) NON-REACTIVE HEPATITIS B CORE IgM (test c ode = 4644) NON-REACTIVE HEPATITIS B SURF AG (test co de = 2739) NON-REACTIVE HEPATITIS C ANTIBODY (test c ode = 4675) REACTIVE INTERPRETATION HEPATITIS A: (test code = 2552) (NOTE) INTERPRETATION HEPATITIS B: (test code = 09119) (NOTE) INTERPRETATION HEPATITIS C: (test code = 75413) (NOTE) David CarballoPSA, [id number] 00:00:00* Test Item Value Reference Range Interpretation Comme nts PSA, TOTAL (test code = 2606) 2.15 NG/ML David CarballoCBC W/AUTO [id number] 00:00:00* Test Item Value Reference Range Interpretation Comme nts WBC (test code = 1001) 8.2 K/UL RBC (test code = 1002) 5.24 M/UL HEMOGLOBIN (test code = 1003) 15.8 G/DL HEMATOCRIT (test code = 1004) 45.3 % MCV (test code = 1005) 86.5 fL MCH (test code = 1006) 30.2 PG MCHC (test code = 1007) 34.9 G/DL RDW (test code = 1038) 12.6 % NEUTROPHILS (test code = 1008) 66.1 % LYMPHOCYTES (test code = 1010) 22.0 % MONOCYTES (test code = 1011) 8.6 % EOSINOPHILS (test code = 1012) 1.7 % BASOPHILS (test code = 1013) 0.9 % IMMATURE GRANULOCYTES (test code = 1036) 0.7 % NUCLEATED RBCS (test code = 1065) 0.0 /100WBC'S PLATELET COUNT (test code = 1015) 262 K/UL ABSOLUTE NEUTROPHILS (test c ode = 1066) 5.42 K/UL ABSOLUTE LYMPHOCYTES (test c ode = 1067) 1.81 K/UL ABSOLUTE MONOCYTES (test cod e = 1068) 0.71 K/UL ABSOLUTE EOSINOPHILS (test c ode = 1040) 0.14 K/UL ABSOLUTE BASOPHILS (test cod e = 1069) 0.07 K/UL ABS IMMATURE GRANULOCYTES (t est code = 1020) 0.06 K/UL ABS NUCLEATED RBCS (test cod e = 33575) 0.00 K/UL David CarballoCOMPREHENSIVE METABOLIC [id number] 00:00:00* Test Item Value Reference Range Interpretation Comme nts GLUCOSE (test code = 2217) 132 MG/DL BUN (test code = 2208) 27 MG/DL CREATININE (test code = 2214) 1.34 MG/DL eGFR (2020 CKD-EPI) (test co de = 50582) 56 ML/MIN/1.73 CALC BUN/CREAT (test code = 2235) 20 RATIO SODIUM (test code = 2231) 142 MEQ/L POTASSIUM (test code = 2228) 5.2 MEQ/L CHLORIDE (test code = 2215) 104 MEQ/L CARBON DIOXIDE (test code = 2206) 25 MEQ/L CALCIUM (test code = 2209) 9.4 MG/DL PROTEIN, TOTAL (test code = 2229) 7.2 G/DL ALBUMIN (test code = 2201) 4.6 G/DL CALC GLOBULIN (test code = 2240) 2.6 G/DL CALC A/G RATIO (test code = 2234) 1.8 RATIO BILIRUBIN, TOTAL (test code = 2207) 0.6 MG/DL ALKALINE PHOSPHATASE (test code = 2204) 41 U/L AST (test code = 2218) 44 U/L ALT (test code = 2219) 44 U/L David CarballoHEMOGLOBIN [id number] 00:00:00* Test Item Value Reference Range Interpretation Comme nts HEMOGLOBIN A1c (test code = 56516) 7.1 % David CarballoLIPID [id number] 00:00:00* Test Item Value Reference Range Interpretation Comme nts CHOLESTEROL (test code = 2210) 135 MG/DL TRIGLYCERIDES (test code = 2232) 116 MG/DL HDL CHOLESTEROL (test code = 2220) 44 MG/DL CALC LDL CHOL (test code = 2237) 71 MG/DL RISK RATIO LDL/HDL (test cod e = 2238) 1.61 RATIO David Parks HEPATITIS [id number] 00:00:00* Test Item Value Reference Range Interpretation Comme nts HEPATITIS A IgM (test code = 99569) NON-REACTIVE HEPATITIS B CORE IgM (test c ode = 4644) NON-REACTIVE HEPATITIS B SURF AG (test co de = 2739) NON-REACTIVE HEPATITIS C ANTIBODY (test c ode = 4675) REACTIVE INTERPRETATION HEPATITIS A: (test code = 2552) (NOTE) INTERPRETATION HEPATITIS B: (test code = 12641) (NOTE) INTERPRETATION HEPATITIS C: (test code = 72673) (NOTE) David CarballoPSA, [id number] 00:00:00* Test Item Value Reference Range Interpretation Comme nts PSA, TOTAL (test code = 2606) 2.15 NG/ML David CarballoCBC W/AUTO [id number] 00:00:00* Test Item Value Reference Range Interpretation Comme nts WBC (test code = 1001) 8.2 K/UL RBC (test code = 1002) 5.24 M/UL HEMOGLOBIN (test code = 1003) 15.8 G/DL HEMATOCRIT (test code = 1004) 45.3 % MCV (test code = 1005) 86.5 fL MCH (test code = 1006) 30.2 PG MCHC (test code = 1007) 34.9 G/DL RDW (test code = 1038) 12.6 % NEUTROPHILS (test code = 1008) 66.1 % LYMPHOCYTES (test code = 1010) 22.0 % MONOCYTES (test code = 1011) 8.6 % EOSINOPHILS (test code = 1012) 1.7 % BASOPHILS (test code = 1013) 0.9 % IMMATURE GRANULOCYTES (test code = 1036) 0.7 % NUCLEATED RBCS (test code = 1065) 0.0 /100WBC'S PLATELET COUNT (test code = 1015) 262 K/UL ABSOLUTE NEUTROPHILS (test c ode = 1066) 5.42 K/UL ABSOLUTE LYMPHOCYTES (test c ode = 1067) 1.81 K/UL ABSOLUTE MONOCYTES (test cod e = 1068) 0.71 K/UL ABSOLUTE EOSINOPHILS (test c ode = 1040) 0.14 K/UL ABSOLUTE BASOPHILS (test cod e = 1069) 0.07 K/UL ABS IMMATURE GRANULOCYTES (t est code = 1020) 0.06 K/UL ABS NUCLEATED RBCS (test cod e = 26931) 0.00 K/UL David CarballoCOMPREHENSIVE METABOLIC [id number] 00:00:00* Test Item Value Reference Range Interpretation Comme nts GLUCOSE (test code = 2217) 132 MG/DL BUN (test code = 2208) 27 MG/DL CREATININE (test code = 2214) 1.34 MG/DL eGFR (2020 CKD-EPI) (test co de = 67291) 56 ML/MIN/1.73 CALC BUN/CREAT (test code = 2235) 20 RATIO SODIUM (test code = 2231) 142 MEQ/L POTASSIUM (test code = 2228) 5.2 MEQ/L CHLORIDE (test code = 2215) 104 MEQ/L CARBON DIOXIDE (test code = 2206) 25 MEQ/L CALCIUM (test code = 2209) 9.4 MG/DL PROTEIN, TOTAL (test code = 2229) 7.2 G/DL ALBUMIN (test code = 2201) 4.6 G/DL CALC GLOBULIN (test code = 2240) 2.6 G/DL CALC A/G RATIO (test code = 2234) 1.8 RATIO BILIRUBIN, TOTAL (test code = 2207) 0.6 MG/DL ALKALINE PHOSPHATASE (test code = 2204) 41 U/L AST (test code = 2218) 44 U/L ALT (test code = 2219) 44 U/L David CarballoHEMOGLOBIN [id number] 00:00:00* Test Item Value Reference Range Interpretation Comme nts HEMOGLOBIN A1c (test code = 60813) 7.1 % David CarballoLIPID [id number] 00:00:00* Test Item Value Reference Range Interpretation Comme nts CHOLESTEROL (test code = 2210) 135 MG/DL TRIGLYCERIDES (test code = 2232) 116 MG/DL HDL CHOLESTEROL (test code = 2220) 44 MG/DL CALC LDL CHOL (test code = 2237) 71 MG/DL RISK RATIO LDL/HDL (test cod e = 2238) 1.61 RATIO David CarballoACUTE HEPATITIS [id number] 00:00:00* Test Item Value Reference Range Interpretation Comme nts HEPATITIS A IgM (test code = 74226) NON-REACTIVE HEPATITIS B CORE IgM (test c ode = 4644) NON-REACTIVE HEPATITIS B SURF AG (test co de = 2739) NON-REACTIVE HEPATITIS C ANTIBODY (test c ode = 4634) REACTIVE INTERPRETATION HEPATITIS A: (test code = 2552) (NOTE) INTERPRETATION HEPATITIS B: (test code = 42618) (NOTE) INTERPRETATION HEPATITIS C: (test code = 75794) (NOTE) Davdi CarballoPSA, [id number] 00:00:00* Test Item Value Reference Range Interpretation Comme nts PSA, TOTAL (test code = 2606) 2.15 NG/ML David CarballoCBC W/AUTO [id number] 00:00:00* Test Item Value Reference Range Interpretation Comme nts WBC (test code = 1001) 8.2 K/UL RBC (test code = 1002) 5.24 M/UL HEMOGLOBIN (test code = 1003) 15.8 G/DL HEMATOCRIT (test code = 1004) 45.3 % MCV (test code = 1005) 86.5 fL MCH (test code = 1006) 30.2 PG MCHC (test code = 1007) 34.9 G/DL RDW (test code = 1038) 12.6 % NEUTROPHILS (test code = 1008) 66.1 % LYMPHOCYTES (test code = 1010) 22.0 % MONOCYTES (test code = 1011) 8.6 % EOSINOPHILS (test code = 1012) 1.7 % BASOPHILS (test code = 1013) 0.9 % IMMATURE GRANULOCYTES (test code = 1036) 0.7 % NUCLEATED RBCS (test code = 1065) 0.0 /100WBC'S PLATELET COUNT (test code = 1015) 262 K/UL ABSOLUTE NEUTROPHILS (test c ode = 1066) 5.42 K/UL ABSOLUTE LYMPHOCYTES (test c ode = 1067) 1.81 K/UL ABSOLUTE MONOCYTES (test cod e = 1068) 0.71 K/UL ABSOLUTE EOSINOPHILS (test c ode = 1040) 0.14 K/UL ABSOLUTE BASOPHILS (test cod e = 1069) 0.07 K/UL ABS IMMATURE GRANULOCYTES (t est code = 1020) 0.06 K/UL ABS NUCLEATED RBCS (test cod e = 92921) 0.00 K/UL David CarballoCOMPREHENSIVE METABOLIC [id number] 00:00:00* Test Item Value Reference Range Interpretation Comme nts GLUCOSE (test code = 2217) 132 MG/DL BUN (test code = 2208) 27 MG/DL CREATININE (test code = 2214) 1.34 MG/DL eGFR (2020 CKD-EPI) (test co de = 66552) 56 ML/MIN/1.73 CALC BUN/CREAT (test code = 2235) 20 RATIO SODIUM (test code = 2231) 142 MEQ/L POTASSIUM (test code = 2228) 5.2 MEQ/L CHLORIDE (test code = 2215) 104 MEQ/L CARBON DIOXIDE (test code = 2206) 25 MEQ/L CALCIUM (test code = 2209) 9.4 MG/DL PROTEIN, TOTAL (test code = 2229) 7.2 G/DL ALBUMIN (test code = 2201) 4.6 G/DL CALC GLOBULIN (test code = 2240) 2.6 G/DL CALC A/G RATIO (test code = 2234) 1.8 RATIO BILIRUBIN, TOTAL (test code = 2207) 0.6 MG/DL ALKALINE PHOSPHATASE (test code = 2204) 41 U/L AST (test code = 2218) 44 U/L ALT (test code = 2219) 44 U/L David CarballoHEMOGLOBIN [id number] 00:00:00* Test Item Value Reference Range Interpretation Comme nts HEMOGLOBIN A1c (test code = 02260) 7.1 % David Pham AustinLIPID [id number] 00:00:00* Test Item Value Reference Range Interpretation Comme nts CHOLESTEROL (test code = 2210) 135 MG/DL TRIGLYCERIDES (test code = 2232) 116 MG/DL HDL CHOLESTEROL (test code = 2220) 44 MG/DL CALC LDL CHOL (test code = 2237) 71 MG/DL RISK RATIO LDL/HDL (test cod e = 2238) 1.61 RATIO David CarballoHEMOGLOBIN [id number] 06:15:57* Test Item Value Reference Range Interpretation Comme nts HEMOGLOBIN A1c (test code = 99120) 6.0 % 4.2-5.6 H COMPREHENSIVE METABOLIC [id number] 05:16:24* Test Item Value Reference Range Interpretation Comme nts GLUCOSE (test code = 2217) 127 MG/DL 70-99 H BUN (test code = 2208) 22 MG/DL 8-23 CREATININE (test code = 2214) 1.29 MG/DL 0.80-1.40 eGFR (2020 CKD-EPI) (test code = 09577) 59 ML/MIN/1.73 >60 L CALC BUN/CREAT (test code = 2235) 17 RATIO 6-28 SODIUM (test code = 223) 143 MEQ/L 133-146 POTASSIUM (test code = 2228) 4.8 MEQ/L 3.5-5.4 CHLORIDE (test code = 2215) 106 MEQ/L 95-107 CARBON DIOXIDE (test code = 2206) 26 MEQ/L 19-31 CALCIUM (test code = 2209) 9.3 MG/DL 8.5-10.5 PROTEIN, TOTAL (test code = 222) 6.7 G/DL 6.1-8.3 ALBUMIN (test code = 220) 4.3 G/DL 3.5-5.2 CALC GLOBULIN (test code = 2240) 2.4 G/DL 1.9-3.7 CALC A/G RATIO (test code = 223) 1.8 RATIO 1.0-2.6 BILIRUBIN, TOTAL (test code = 2207) 0.6 MG/DL See_Comment [Automated me ssage] The system which generated this result transmitted reference range: <=1.2. The reference range was not used to interpret this result as normal/abnormal. ALKALINE PHOSPHATASE (test code = 2204) 40 U/L 40-125 AST (test code = 2218) 38 U/L 9-50 ALT (test code = 2219) 39 U/L 5-50 UNLESS OTHERWISE INDICATED, ALL TESTING PERFORMED [facility] [address] [place] [id number] ASSISTANT PROGRAM DIRECTOR: KIERA TANNER M.D. CLIA NUMBER [id number] [facility] [place]. [id number] COMPREHENSIVE METABOLIC [id number] 00:00:00* Test Item Value Reference Range Interpretation Comme nts GLUCOSE (test code = 2217) 127 MG/DL BUN (test code = 2208) 22 MG/DL CREATININE (test code = 2214) 1.29 MG/DL eGFR (2020 CKD-EPI) (test co de = 13780) 59 ML/MIN/1.73 CALC BUN/CREAT (test code = 2235) 17 RATIO SODIUM (test code = 2231) 143 MEQ/L POTASSIUM (test code = 2228) 4.8 MEQ/L CHLORIDE (test code = 2215) 106 MEQ/L CARBON DIOXIDE (test code = 2206) 26 MEQ/L CALCIUM (test code = 2209) 9.3 MG/DL PROTEIN, TOTAL (test code = 2229) 6.7 G/DL ALBUMIN (test code = 2201) 4.3 G/DL CALC GLOBULIN (test code = 2240) 2.4 G/DL CALC A/G RATIO (test code = 2234) 1.8 RATIO BILIRUBIN, TOTAL (test code = 2207) 0.6 MG/DL ALKALINE PHOSPHATASE (test code = 2204) 40 U/L AST (test code = 2218) 38 U/L ALT (test code = 2219) 39 U/L David Pham HarisHEMOGLOBIN [id number] 00:00:00* Test Item Value Reference Range Interpretation Comme nts HEMOGLOBIN A1c (test code = 69544) 6.0 % David Pham HarisCOMPREHENSIVE METABOLIC [id number] 00:00:00* Test Item Value Reference Range Interpretation Comme nts GLUCOSE (test code = 2217) 127 MG/DL BUN (test code = 2208) 22 MG/DL CREATININE (test code = 2214) 1.29 MG/DL eGFR (2020 CKD-EPI) (test co de = 52743) 59 ML/MIN/1.73 CALC BUN/CREAT (test code = 2235) 17 RATIO SODIUM (test code = 2231) 143 MEQ/L POTASSIUM (test code = 2228) 4.8 MEQ/L CHLORIDE (test code = 2215) 106 MEQ/L CARBON DIOXIDE (test code = 2206) 26 MEQ/L CALCIUM (test code = 2209) 9.3 MG/DL PROTEIN, TOTAL (test code = 2229) 6.7 G/DL ALBUMIN (test code = 2201) 4.3 G/DL CALC GLOBULIN (test code = 2240) 2.4 G/DL CALC A/G RATIO (test code = 2234) 1.8 RATIO BILIRUBIN, TOTAL (test code = 2207) 0.6 MG/DL ALKALINE PHOSPHATASE (test code = 2204) 40 U/L AST (test code = 2218) 38 U/L ALT (test code = 2219) 39 U/L David Pham AustinHEMOGLOBIN [id number] 00:00:00* Test Item Value Reference Range Interpretation Comme nts HEMOGLOBIN A1c (test code = 64931) 6.0 % David Pham AustinCOMPREHENSIVE METABOLIC [id number] 00:00:00* Test Item Value Reference Range Interpretation Comme nts GLUCOSE (test code = 2217) 127 MG/DL BUN (test code = 2208) 22 MG/DL CREATININE (test code = 2214) 1.29 MG/DL eGFR (2020 CKD-EPI) (test co de = 38432) 59 ML/MIN/1.73 CALC BUN/CREAT (test code = 2235) 17 RATIO SODIUM (test code = 2231) 143 MEQ/L POTASSIUM (test code = 2228) 4.8 MEQ/L CHLORIDE (test code = 2215) 106 MEQ/L CARBON DIOXIDE (test code = 2206) 26 MEQ/L CALCIUM (test code = 2209) 9.3 MG/DL PROTEIN, TOTAL (test code = 2229) 6.7 G/DL ALBUMIN (test code = 2201) 4.3 G/DL CALC GLOBULIN (test code = 2240) 2.4 G/DL CALC A/G RATIO (test code = 2234) 1.8 RATIO BILIRUBIN, TOTAL (test code = 2207) 0.6 MG/DL ALKALINE PHOSPHATASE (test code = 2204) 40 U/L AST (test code = 2218) 38 U/L ALT (test code = 2219) 39 U/L David Pham AustinHEMOGLOBIN [id number] 00:00:00* Test Item Value Reference Range Interpretation Comme nts HEMOGLOBIN A1c (test code = 74776) 6.0 % David Pham AustinCOMPREHENSIVE METABOLIC [id number] 00:00:00* Test Item Value Reference Range Interpretation Comme nts GLUCOSE (test code = 2217) 127 MG/DL BUN (test code = 2208) 22 MG/DL CREATININE (test code = 2214) 1.29 MG/DL eGFR (2020 CKD-EPI) (test co de = 30519) 59 ML/MIN/1.73 CALC BUN/CREAT (test code = 2235) 17 RATIO SODIUM (test code = 2231) 143 MEQ/L POTASSIUM (test code = 2228) 4.8 MEQ/L CHLORIDE (test code = 2215) 106 MEQ/L CARBON DIOXIDE (test code = 2206) 26 MEQ/L CALCIUM (test code = 2209) 9.3 MG/DL PROTEIN, TOTAL (test code = 2229) 6.7 G/DL ALBUMIN (test code = 2201) 4.3 G/DL CALC GLOBULIN (test code = 2240) 2.4 G/DL CALC A/G RATIO (test code = 2234) 1.8 RATIO BILIRUBIN, TOTAL (test code = 2207) 0.6 MG/DL ALKALINE PHOSPHATASE (test code = 2204) 40 U/L AST (test code = 2218) 38 U/L ALT (test code = 2219) 39 U/L David CarballoHEMOGLOBIN [id number] 00:00:00* Test Item Value Reference Range Interpretation Comme nts HEMOGLOBIN A1c (test code = 44093) 6.0 % David CarballoCOMPREHENSIVE METABOLIC [id number] 05:26:29* Test Item Value Reference Range Interpretation Comme nts GLUCOSE (test code = 2217) 125 MG/DL 70-99 H BUN (test code = 2208) 28 MG/DL 8-23 H CREATININE (test code = 2214) 1.66 MG/DL 0.80-1.40 H eGFR (2020 CKD-EPI) (test code = 38806) 44 ML/MIN/1.73 >60 L CALC BUN/CREAT (test code = 2235) 17 RATIO 6-28 SODIUM (test code = 2231) 148 MEQ/L 133-146 H POTASSIUM (test code = 2228) 4.3 MEQ/L 3.5-5.4 CHLORIDE (test code = 2215) 109 MEQ/L 95-107 H CARBON DIOXIDE (test code = 2206) 25 MEQ/L 19-31 CALCIUM (test code = 2209) 8.8 MG/DL 8.5-10.5 PROTEIN, TOTAL (test code = 2229) 6.7 G/DL 6.1-8.3 ALBUMIN (test code = 2201) 4.1 G/DL 3.5-5.2 CALC GLOBULIN (test code = 2240) 2.6 G/DL 1.9-3.7 CALC A/G RATIO (test code = 2234) 1.6 RATIO 1.0-2.6 BILIRUBIN, TOTAL (test code = 2207) 0.5 MG/DL See_Comment [Automated me ssage] The system which generated this result transmitted reference range: <=1.2. The reference range was not used to interpret this result as normal/abnormal. ALKALINE PHOSPHATASE (test code = 2204) 46 U/L 40-125 AST (test code = 2218) 38 U/L 9-50 ALT (test code = 2219) 37 U/L 5-50 UNLESS OTHERWISE INDICATED, ALL TESTING PERFORMED [facility] [employer] [address] [place] [address] ASSISTANT PROGRAM DIRECTOR: KIERA TANNER M.D. IA NUMBER [id number] [facility] [place]. [id number] HEMOGLOBIN [id number] 03:54:22* Test Item Value Reference Range Interpretation Comme nts HEMOGLOBIN A1c (test code = 34770) 6.6 % 4.2-5.6 H CITIZEN OF [employer] GUIDELINES FOR HGB A1C: PREDIABETES/INCREASED RISK . . . . . . . 5.7-6.4% DIAGNOSIS OF DIABETES . . . . . . . . . >=6.5% WITH CONFIRMATION OR APPROPRIATE SYMPTOMS NOTE: ASSAY MAY BE AFFECTED BY HEMOGLOBINOPATHIES (SICKLE CELL ANEMIA, S-C DISEASE, OTHERS) OR ARTIFICIALLY LOWERED BY DECREASED RED CELL SURVIVAL (HEMOLYTIC ANEMIAS, BLOOD LOSS, ETC.). CONSIDER ALTERNATE TESTING OR LABORATORY CONSULTATION. COMPREHENSIVE METABOLIC [id number] 00:00:00* Test Item Value Reference Range Interpretation Comme nts GLUCOSE (test code = 2217) 125 MG/DL BUN (test code = 2208) 28 MG/DL CREATININE (test code = 2214) 1.66 MG/DL eGFR (2020 CKD-EPI) (test co de = ) 44 ML/MIN/1.73 CALC BUN/CREAT (test code = 2235) 17 RATIO SODIUM (test code = 2231) 148 MEQ/L POTASSIUM (test code = 2228) 4.3 MEQ/L CHLORIDE (test code = 2215) 109 MEQ/L CARBON DIOXIDE (test code = 2206) 25 MEQ/L CALCIUM (test code = 2209) 8.8 MG/DL PROTEIN, TOTAL (test code = 2229) 6.7 G/DL ALBUMIN (test code = 2201) 4.1 G/DL CALC GLOBULIN (test code = 2240) 2.6 G/DL CALC A/G RATIO (test code = 2234) 1.6 RATIO BILIRUBIN, TOTAL (test code = 2207) 0.5 MG/DL ALKALINE PHOSPHATASE (test code = 2204) 46 U/L AST (test code = 2218) 38 U/L ALT (test code = 2219) 37 U/L David Pham AustinHEMOGLOBIN [id number] 00:00:00* Test Item Value Reference Range Interpretation Comme nts HEMOGLOBIN A1c (test code = 55613) 6.6 % David CarballoCOMPREHENSIVE METABOLIC [id number] 00:00:00* Test Item Value Reference Range Interpretation Comme nts GLUCOSE (test code = 2217) 125 MG/DL BUN (test code = 2208) 28 MG/DL CREATININE (test code = 2214) 1.66 MG/DL eGFR (2020 CKD-EPI) (test co de = 41621) 44 ML/MIN/1.73 CALC BUN/CREAT (test code = 2235) 17 RATIO SODIUM (test code = 2231) 148 MEQ/L POTASSIUM (test code = 2228) 4.3 MEQ/L CHLORIDE (test code = 2215) 109 MEQ/L CARBON DIOXIDE (test code = 2206) 25 MEQ/L CALCIUM (test code = 2209) 8.8 MG/DL PROTEIN, TOTAL (test code = 2229) 6.7 G/DL ALBUMIN (test code = 2201) 4.1 G/DL CALC GLOBULIN (test code = 2240) 2.6 G/DL CALC A/G RATIO (test code = 2234) 1.6 RATIO BILIRUBIN, TOTAL (test code = 2207) 0.5 MG/DL ALKALINE PHOSPHATASE (test code = 2204) 46 U/L AST (test code = 2218) 38 U/L ALT (test code = 2219) 37 U/L David Pham AustinHEMOGLOBIN [id number] 00:00:00* Test Item Value Reference Range Interpretation Comme nts HEMOGLOBIN A1c (test code = 08610) 6.6 % David CarballoCOMPREHENSIVE METABOLIC [id number] 00:00:00* Test Item Value Reference Range Interpretation Comme nts GLUCOSE (test code = 2217) 125 MG/DL BUN (test code = 2208) 28 MG/DL CREATININE (test code = 2214) 1.66 MG/DL eGFR (2020 CKD-EPI) (test co de = 73985) 44 ML/MIN/1.73 CALC BUN/CREAT (test code = 2235) 17 RATIO SODIUM (test code = 2231) 148 MEQ/L POTASSIUM (test code = 2228) 4.3 MEQ/L CHLORIDE (test code = 2215) 109 MEQ/L CARBON DIOXIDE (test code = 2206) 25 MEQ/L CALCIUM (test code = 2209) 8.8 MG/DL PROTEIN, TOTAL (test code = 2229) 6.7 G/DL ALBUMIN (test code = 2201) 4.1 G/DL CALC GLOBULIN (test code = 2240) 2.6 G/DL CALC A/G RATIO (test code = 2234) 1.6 RATIO BILIRUBIN, TOTAL (test code = 2207) 0.5 MG/DL ALKALINE PHOSPHATASE (test code = 2204) 46 U/L AST (test code = 2218) 38 U/L ALT (test code = 2219) 37 U/L David CarballoHEMOGLOBIN [id number] 00:00:00* Test Item Value Reference Range Interpretation Comme lyn HEMOGLOBIN A1c (test code = 84669) 6.6 % [facility]ODPREHENS[facility] METABOLIC [id number] 00:00:00* Test Item Value Reference Range Interpretation Comme nts GLUCOSE (test code = 2217) 125 MG/DL BUN (test code = 2208) 28 MG/DL CREATININE (test code = 2214) 1.66 MG/DL eGFR (2020 CKD-EPI) (test co de = 53842) 44 ML/MIN/1.73 CALC BUN/CREAT (test code = 2235) 17 RATIO SODIUM (test code = 2231) 148 MEQ/L POTASSIUM (test code = 2228) 4.3 MEQ/L CHLORIDE (test code = 2215) 109 MEQ/L CARBON DIOXIDE (test code = 2206) 25 MEQ/L CALCIUM (test code = 2209) 8.8 MG/DL PROTEIN, TOTAL (test code = 2229) 6.7 G/DL ALBUMIN (test code = 2201) 4.1 G/DL CALC GLOBULIN (test code = 2240) 2.6 G/DL CALC A/G RATIO (test code = 2234) 1.6 RATIO BILIRUBIN, TOTAL (test code = 2207) 0.5 MG/DL ALKALINE PHOSPHATASE (test code = 2204) 46 U/L AST (test code = 2218) 38 U/L ALT (test code = 2219) 37 U/L David CarballoHEMOGLOBIN [id number] 00:00:00* Test Item Value Reference Range Interpretation Comme nts HEMOGLOBIN A1c (test code = 84389) 6.6 % David Pham PeruPOCT GLUCOSE (AUTOMATED)2021-11-12 18:13:18* Test Item Value Reference Range Interpretation Comme nts POCT GLU (test code = 5385782358) 141 mg/dL 70-110 H Lab Interpretation (test cod e = 44556-2) Abnormal [facility] GLUCOSE (AUTOMATED)2021-11-12 14:32:12* Test Item Value Reference Range Interpretation Comme nts POCT GLU (test code = 9060941950) 103 mg/dL 70-110 Lab Interpretation (test cod e = 38756-5) Normal [facility] GLUCOSE (AUTOMATED)2021-11-12 00:45:38* Test Item Value Reference Range Interpretation Comme nts POCT GLU (test code = 8925344403) 119 mg/dL 70-110 H Lab Interpretation (test cod e = 27545-7) [facility] [id number] 17:07:14* Test Item Value Reference Range Interpretation Comme nts CRP (test code = 3626056697) 0.2 mg/dL <0.8 Lab Interpretation (test cod e = 97343-7) Normal [facility] HospitalVancom[facility] Trough Level - Draw no more than 60 minutes before the 0600 dose.2021-11-11 14:09:51* Test Item Value Reference Range Interpretation Comme nts VANCO TROUGH (test code = 2535624185) 11.4 ug/mL 10.0-20.0 THAI (test code = THAI) Toxic Range: ?>20 ug/mL 15-20 ug/mL is recommended for severe infection or when Vancomycin KOLBY is greater than or equal to 2. Lab Interpretation (test code = 43447-0) Normal [facility] METABOLIC PANEL (NA, K, CL, CO2, GLUCOSE, BUN, CREATININE, CA)2021-11-11 14:04:50* Test Item Value Reference Range Interpretation Comme nts NA (test code = 3655983056) 135 mmol/L 135-145 K (test code = 9528272478) 4.4 mmol/L 3.5-5.0 CL (test code = 0385086680) 102 mmol/L 98-108 CO2 TOTAL (test code = 0093491088) 25 mmol/L 23-31 AGAP (test code = 9591997914) 2-16 BUN (test code = 2943250147) 15 mg/dL 7-23 GLUCOSE (test code = 1687731418) 103 mg/dL 70-110 CREATININE (test code = 8254761272) 0.83 mg/dL 0.60-1.25 CALCIUM (test code = 7976414305) 8.6 mg/dL 8.6-10.6 eGFR (test code = 1712728185) mL/min/1.73m2 THAI (test code = THAI) Association of Glomerular Filtration Rate (GFR) and Staging of Kidney Disease* + + +- +| GFR (mL/min/1.73 m2) ?| With Kidney Damage ?| ?Without Kidney Damage+ ------+ ----+ ------+| ?>90 ?| ?Stage one ?| ? Normal ?+ -+ + -+| ?60-89 ?| ?Stage two ?| ? Decreased GFR ? + + +- +| ?30-59 ?| ?Stage three ?| ? Stage three ? + + +- +| ?15-29 ?| ?Stage four ? | ? Stage four ?+ -+ + -+| ?<15 (or dialysis) ? ?| ?Stage five ? | ? Stage five ?+ -+ + -+ *Each stage assumes the associated GFR level has been in effect for at least three months. ?Stages 1 to 5, with or without kidney disease, indicate chronic kidney disease. Notes: Determination of stages one and two (with eGFR >59mL/min/1.73 m2) requires estimation of kidney damage for at least three months as defined by structural or functional abnormalities of the kidney, manifested by either:Pathological abnormalities or Markers of kidney damage (including abnormalities in the composition of the blood or urine or abnormalities in imaging tests). [facility] WITH [id number] 12:49:50* Test Item Value Reference Range Interpretation Comme nts WBC (test code = 6690-2) See_Comment [Automated messa ge] The system which generated this result transmitted reference range: 4.20 - 10.70 10*3/?L. The reference range was not used to interpret this result as normal/abnormal. RBC (test code = 789-8) See_Comment H [Automated messa ge] The system which generated this result transmitted reference range: 4.26 - 5.52 10*6/?L. The reference range was not used to interpret this result as normal/abnormal. HGB (test code = 718-7) 16.6 g/dL 12.2-16.4 H HCT (test code = 4544-3) 47.2 % 38.4-49.3 MCV (test code = 787-2) 84.9 fL 81.7-95.6 MCH (test code = 785-6) 29.9 pg 26.1-32.7 MCHC (test code = 786-4) 35.2 g/dL 31.2-35.0 H RDW-SD (test code = 26999-2) 37.7 fL 38.5-51.6 L RDW-CV (test code = 788-0) 12.4 % 12.1-15.4 PLT (test code = 777-3) See_Comment [Automated messa ge] The system which generated this result transmitted reference range: 150 - 328 10*3/?L. The reference range was not used to interpret this result as normal/abnormal. MPV (test code = 08280-3) 8.8 fL 9.8-13.0 L NRBC/100 WBC (test code = 8781101827) See_Comment [Automated me ssage] The system which generated this result transmitted reference range: 0.0 - 10.0 /100 WBCs. The reference range was not used to interpret this result as normal/abnormal. NRBC x10^3 (test code = 1688062129) <0.01 See_Comment [Automated messa ge] The system which generated this result transmitted reference range: 10*3/?L. The reference range was not used to interpret this result as normal/abnormal. GRAN MAT (NEUT) % (test code = 770-8) 54.1 % IMM GRAN % (test code = 0949589739) 0.60 % LYMPH % (test code = 736-9) 31.4 % MONO % (test code = 5905-5) 9.5 % EOS % (test code = 713-8) 2.7 % BASO % (test code = 706-2) 1.7 % GRAN MAT x10^3(ANC) (test code = 9408586331) 3.41 10*3/uL 1.99-6.95 IMM GRAN x10^3 (test code = 7994505023) 0.04 10*3/uL 0.00-0.06 LYMPH x10^3 (test code = 731-0) 1.98 10*3/uL 1.09-3.23 MONO x10^3 (test code = 742-7) 0.60 10*3/uL 0.36-1.02 EOS x10^3 (test code = 711-2) 0.17 10*3/uL 0.06-0.53 BASO x10^3 (test code = 704-7) 0.11 10*3/uL 0.01-0.09 H Lab Interpretation (test code = 60305-0) [facility]2021-11-10 22:48:24* Test Item Value Reference Range Interpretation Comme nts POCT GLU (test code = 6482663202) 123 mg/dL 70-110 H Lab Interpretation (test cod e = 16700-3) Abnormal [facility] HospitalSEDIMENTATION [id number] 20:35:23* Test Item Value Reference Range Interpretation Comme nts ESR (test code = 1485985713) See_Comment [Automated messa ge] The system which generated this result transmitted reference range: 0 - 10 mm/HR. The reference range was not used to interpret this result as normal/abnormal. Lab Interpretation (test code = 21621-1) Normal [facility] ([facility])2021-11-10 18:03:58* Test Item Value Reference Range Interpretation Comme [facility] POCT GLU (test code = 6305359955) 136 mg/dL 70-110 H Lab Interpretation (test cod e = 34990-7) Abnormal [facility] WITH [id number] 10:00:02* Test Item Value Reference Range Interpretation Comme [facility] WBC (test code = 6690-2) See_Comment [Automated [employer] ge] The system which generated this result transmitted reference range: 4.20 - 10.70 10*3/?L. The reference range was not used to interpret this result as normal/abnormal. RBC (test code = 789-8) See_Comment [Automated [employer]] The system which generated this result transmitted reference range: 4.26 - 5.52 10*6/?L. The reference range was not used to interpret this result as normal/abnormal. HGB (test code = 718-7) 15.4 g/dL 12.2-16.4 HCT (test code = 4544-3) 43.6 % 38.4-49.3 MCV (test code = 787-2) 84.7 fL 81.7-95.6 MCH (test code = 785-6) 29.9 pg 26.1-32.7 MCHC (test code = 786-4) 35.3 g/dL 31.2-35.0 H RDW-SD (test code = 80149-0) 37.8 fL 38.5-51.6 L RDW-CV (test code = 788-0) 12.4 % 12.1-15.4 PLT (test code = 777-3) See_Comment [Automated [employer] ge] The system which generated this result transmitted reference range: 150 - 328 10*3/?L. The reference range was not used to interpret this result as normal/abnormal. MPV (test code = 33119-8) 9.4 fL 9.8-13.0 L NRBC/100 WBC (test code = 7783309107) See_Comment [Automated me ssage] The system which generated this result transmitted reference range: 0.0 - 10.0 /100 WBCs. The reference range was not used to interpret this result as normal/abnormal. NRBC x10^3 (test code = 7063962320) <0.01 See_Comment [Automated messa ge] The system which generated this result transmitted reference range: 10*3/?L. The reference range was not used to interpret this result as normal/abnormal. GRAN MAT (NEUT) % (test code = 770-8) 53.4 % IMM GRAN % (test code = 9789459821) 1.10 % LYMPH % (test code = 736-9) 33.0 % MONO % (test code = 5905-5) 9.0 % EOS % (test code = 713-8) 2.2 % BASO % (test code = 706-2) 1.3 % GRAN MAT x10^3(ANC) (test code = 3045691021) 3.37 10*3/uL 1.99-6.95 IMM GRAN x10^3 (test code = 8164085916) 0.07 10*3/uL 0.00-0.06 H LYMPH x10^3 (test code = 731-0) 2.08 10*3/uL 1.09-3.23 MONO x10^3 (test code = 742-7) 0.57 10*3/uL 0.36-1.02 EOS x10^3 (test code = 711-2) 0.14 10*3/uL 0.06-0.53 BASO x10^3 (test code = 704-7) 0.08 10*3/uL 0.01-0.09 Lab Interpretation (test code = 18279-1) Abnormal [facility] METABOLIC PANEL (NA, K, CL, CO2, GLUCOSE, BUN, CREATININE, CA)2021-11-10 09:35:12* Test Item Value Reference Range Interpretation Comme nts NA (test code = 2338233200) 133 mmol/L 135-145 L K (test code = 4717985625) 4.4 mmol/L 3.5-5.0 CL (test code = 0257984862) 101 mmol/L 98-108 CO2 TOTAL (test code = 0406861628) 27 mmol/L 23-31 AGAP (test code = 0539300051) 2-16 BUN (test code = 9268049582) 16 mg/dL 7-23 GLUCOSE (test code = 7697140768) 107 mg/dL 70-110 CREATININE (test code = 3751480850) 0.89 mg/dL 0.60-1.25 CALCIUM (test code = 8296588840) 8.4 mg/dL 8.6-10.6 L eGFR (test code = 0180710764) mL/min/1.73m2 THAI (test code = THAI) Association of Glomerular Filtration Rate (GFR) and Staging of Kidney Disease* + --+ --+ ------+| GFR (mL/min/1.73 m2) ?| With Kidney Damage ?| ?Without Kidney Damage+ --------+ --------+ +| ?>90 ?| ?Stage one ?| ? Normal ?+ ---+ ---+ -------+| ?60-89 ?| ?Stage two ?| ? Decreased GFR ? + --+ --+ ------+| ?30-59 ?| ?Stage three ?| ? Stage three ? + --+ --+ ------+| ?15-29 ?| ?Stage four ? | ? Stage four ?+ ---+ ---+ -------+| ?<15 (or dialysis) ? ?| ?Stage five ? | ? Stage five ?+ ---+ ---+ -------+ *Each stage assumes the associated GFR level has been in effect for at least three months. ?Stages 1 to 5, with or without kidney disease, indicate chronic kidney disease. Notes: Determination of stages one and two (with eGFR >59mL/min/1.73 m2) requires estimation of kidney damage for at least three months as defined by structural or functional abnormalities of the kidney, manifested by either:Pathological abnormalities or Markers of kidney damage (including abnormalities in the composition of the blood or urine or abnormalities in imaging tests). Lab Interpretation (test code = 74356-9) Abnormal [facility] HospitalGlycosylated Hemoglobin (A1C)2021-11-10 09:23:30* Test Item Value Reference Range Interpretation Comme nts HGB A1C (test code = 4548-4) 7.2 % 4.0-5.7 H THAI (test code = THAI) Reference RangesNormal: <5.7%Prediabetes: 5.7 - 6.4%Diabetes: > 6.5% Lab Interpretation (test code = 96396-8) Abnormal [facility] HospitalCOMP. METABOLIC PANEL (75602)2021-11-09 23:27:08* Test Item Value Reference Range Interpretation Comme nts NA (test code = 3639013270) 131 mmol/L 135-145 L K (test code = 2254243446) 5.6 mmol/L 3.5-5.0 H CL (test code = 6035617620) 97 mmol/L 98-108 L CO2 TOTAL (test code = 9181077782) 24 mmol/L 23-31 AGAP (test code = 0900401938) 2-16 BUN (test code = 9191279151) 15 mg/dL 7-23 GLUCOSE (test code = 7783705896) 117 mg/dL 70-110 H CREATININE (test code = 4022536486) 1.05 mg/dL 0.60-1.25 TOTAL BILI (test code = 4977162644) 0.7 mg/dL 0.1-1.1 CALCIUM (test code = 4762126982) 8.7 mg/dL 8.6-10.6 T PROTEIN (test code = 8534440494) 7.5 g/dL 6.3-8.2 ALBUMIN (test code = 2107036596) 4.6 g/dL 3.5-5.0 ALK PHOS (test code = 8547493779) 46 U/L 34-122 ALTv (test code = 1742-6) 45 U/L 5-50 AST(SGOT) (test code = 7918811500) 57 U/L 13-40 H eGFR (test code = 3313738752) mL/min/1.73m2 THAI (test code = THAI) Association of Glomerular Filtration Rate (GFR) and Staging of Kidney Disease* + --+ --+ ------+| GFR (mL/min/1.73 m2) ?| With Kidney Damage ?| ?Without Kidney Damage+ --------+ --------+ +| ?>90 ?| ?Stage one ?| ? Normal ?+ ---+ ---+ -------+| ?60-89 ?| ?Stage two ?| ? Decreased GFR ? + --+ --+ ------+| ?30-59 ?| ?Stage three ?| ? Stage three ? + --+ --+ ------+| ?15-29 ?| ?Stage four ? | ? Stage four ?+ ---+ ---+ -------+| ?<15 (or dialysis) ? ?| ?Stage five ? | ? Stage five ?+ ---+ ---+ -------+ *Each stage assumes the associated GFR level has been in effect for at least three months. ?Stages 1 to 5, with or without kidney disease, indicate chronic kidney disease. Notes: Determination of stages one and two (with eGFR >59mL/min/1.73 m2) requires estimation of kidney damage for at least three months as defined by structural or functional abnormalities of the kidney, manifested by either:Pathological abnormalities or Markers of kidney damage (including abnormalities in the composition of the blood or urine or abnormalities in imaging tests). Lab Interpretation (test code = 70665-6) Abnormal [facility] WITH [id number] 23:14:25* Test Item Value Reference Range Interpretation Comme nts WBC (test code = 6690-2) See_Comment [[employer] The system which generated this result transmitted reference range: 4.20 - 10.70 10*3/?L. The reference range was not used to interpret this result as normal/abnormal. RBC (test code = 789-8) See_Comment H [[employer] The system which generated this result transmitted reference range: 4.26 - 5.52 10*6/?L. The reference range was not used to interpret this result as normal/abnormal. HGB (test code = 718-7) 16.5 g/dL 12.2-16.4 H HCT (test code = 4544-3) 47.5 % 38.4-49.3 MCV (test code = 787-2) 85.7 fL 81.7-95.6 MCH (test code = 785-6) 29.8 pg 26.1-32.7 MCHC (test code = 786-4) 34.7 g/dL 31.2-35.0 RDW-SD (test code = 39183-5) 38.8 fL 38.5-51.6 RDW-CV (test code = 788-0) 12.6 % 12.1-15.4 PLT (test code = 777-3) See_Comment [Automated messa ge] The system which generated this result transmitted reference range: 150 - 328 10*3/?L. The reference range was not used to interpret this result as normal/abnormal. MPV (test code = 13127-8) 9.0 fL 9.8-13.0 L NRBC/100 WBC (test code = 9315119959) See_Comment [Automated [employer] ssage] The system which generated this result transmitted reference range: 0.0 - 10.0 /100 WBCs. The reference range was not used to interpret this result as normal/abnormal. NRBC x10^3 (test code = 3193290916) <0.01 See_Comment [Automated messa ge] The system which generated this result transmitted reference range: 10*3/?L. The reference range was not used to interpret this result as normal/abnormal. GRAN MAT (NEUT) % (test code = 770-8) 69.2 % IMM GRAN % (test code = 1347301821) 1.10 % LYMPH % (test code = 736-9) 19.8 % MONO % (test code = 5905-5) 7.2 % EOS % (test code = 713-8) 1.3 % BASO % (test code = 706-2) 1.4 % GRAN MAT x10^3(ANC) (test code = 4039589049) 4.90 10*3/uL 1.99-6.95 IMM GRAN x10^3 (test code = 0357560385) 0.08 10*3/uL 0.00-0.06 H LYMPH x10^3 (test code = 731-0) 1.40 10*3/uL 1.09-3.23 MONO x10^3 (test code = 742-7) 0.51 10*3/uL 0.36-1.02 EOS x10^3 (test code = 711-2) 0.09 10*3/uL 0.06-0.53 BASO x10^3 (test code = 704-7) 0.10 10*3/uL 0.01-0.09 H Lab Interpretation (test code = 29456-1) [facility]normal [facility] HospitalLactic Acid Whole [id number] 22:53:35* Test Item Value Reference Range Interpretation Comme nts LACTIC ACID (test code = 7846621897) 1.20 mmol/L 0.50-2.20 Lab Interpretation (test cod e = 11850-8) Normal [facility] HospitalSEDIMENTATION [id number] 15:41:37* Test Item Value Reference Range Interpretation Comme nts SEDIMENTATION RATE (test cod e = 1017) 5 MM/HOUR 0-15 HEMOGLOBIN [id number] 07:15:00* Test Item Value Reference Range Interpretation Comme [facility] HEMOGLOBIN A1c (test code = 27156) 8.0 % 4.2-5.6 H CITIZEN OF [place] [employer] GUIDELINES FOR HGB A1C: PREDIABETES/INCREASED RISK . . . . . . . 5.7-6.4% DIAGNOSIS OF DIABETES . . . . . . . . . >=6.5% WITH CONFIRMATION OR APPROPRIATE SYMPTOMS NOTE: ASSAY MAY BE AFFECTED BY HEMOGLOBINOPATHIES (SICKLE CELL ANEMIA, S-C DISEASE, OTHERS) OR ARTIFICIALLY LOWERED BY DECREASED RED CELL SURVIVAL (HEMOLYTIC ANEMIAS, BLOOD LOSS, ETC.). CONSIDER ALTERNATE TESTING OR LABORATORY CONSULTATION. C-REACTIVE [id number] 03:52:34* Test Item Value Reference Range Interpretation Comme nts C-REACTIVE PROTEIN (test cod e = 3513) 0.7 MG/DL <0.5 H COMPREHENSIVE METABOLIC [id number] 03:40:20* Test Item Value Reference Range Interpretation Comme nts GLUCOSE (test code = 2217) 194 MG/DL 70-99 H BUN (test code = 2208) 14 MG/DL 8-23 CREATININE (test code = 2214) 0.94 MG/DL 0.80-1.40 eGFR (2020 CKD-EPI) (test code = 95204) 86 ML/MIN/1.73 >60 CALC BUN/CREAT (test code = 2235) 15 RATIO 6-28 SODIUM (test code = 2231) 139 MEQ/L 133-146 POTASSIUM (test code = 2228) 4.6 MEQ/L 3.5-5.4 CHLORIDE (test code = 2215) 99 MEQ/L 95-107 CARBON DIOXIDE (test code = 2206) 27 MEQ/L 19-31 CALCIUM (test code = 2209) 9.3 MG/DL 8.5-10.5 PROTEIN, TOTAL (test code = 2229) 7.2 G/DL 6.1-8.3 ALBUMIN (test code = 2201) 4.2 G/DL 3.5-5.2 CALC GLOBULIN (test code = 2240) 3.0 G/DL 1.9-3.7 CALC A/G RATIO (test code = 2234) 1.4 RATIO 1.0-2.6 BILIRUBIN, TOTAL (test code = 2207) 0.9 MG/DL See_Comment [Automated me ssage] The system which generated this result transmitted reference range: <=1.2. The reference range was not used to interpret this result as normal/abnormal. ALKALINE PHOSPHATASE (test code = 2204) 51 U/L 40-125 AST (test code = 2218) 38 U/L 9-50 ALT (test code = 2219) 35 U/L 5-50 UNLESS OTHERWISE INDICATED, ALL TESTING PERFORMED ATCLINICAL PATHOLOGY [employer] [address] [place] [address] ASSISTANT PROGRAM DIRECTOR: KIERA TANNER M.D. CLIA NUMBER [id number] [facility] [place] [place]. [id number] SEDIMENTATION [id number] 00:00:00* Test Item Value Reference Range Interpretation Comme nts SEDIMENTATION RATE (test cod e = 1017) 5 MM/HOUR [facility] [id number] 00:00:00* Test Item Value Reference Range Interpretation Comme nts C-REACTIVE PROTEIN (test cod e = 3513) 0.7 MG/DL [facility] CenterHE[facility] [id number] 00:00:00* Test Item Value Reference Range Interpretation Comme [facility] HEMOGLOBIN A1c (test code = 78495) 8.0 % [facility] CenterCOM[facility] METABOLIC [id number] 00:00:00* Test Item Value Reference Range Interpretation Comme nts GLUCOSE (test code = 2217) 194 MG/DL BUN (test code = 2208) 14 MG/DL CREATININE (test code = 2214) 0.94 MG/DL eGFR (2020 CKD-EPI) (test co de = 21122) 86 ML/MIN/1.73 CALC BUN/CREAT (test code = 2235) 15 RATIO SODIUM (test code = 2231) 139 MEQ/L POTASSIUM (test code = 2228) 4.6 MEQ/L CHLORIDE (test code = 2215) 99 MEQ/L CARBON DIOXIDE (test code = 2206) 27 MEQ/L CALCIUM (test code = 2209) 9.3 MG/DL PROTEIN, TOTAL (test code = 2229) 7.2 G/DL ALBUMIN (test code = 2201) 4.2 G/DL CALC GLOBULIN (test code = 2240) 3.0 G/DL CALC A/G RATIO (test code = 2234) 1.4 RATIO BILIRUBIN, TOTAL (test code = 2207) 0.9 MG/DL ALKALINE PHOSPHATASE (test code = 2204) 51 U/L AST (test code = 2218) 38 U/L ALT (test code = 2219) 35 U/L David Pham AustinSEDIMENTATION [id number] 00:00:00* Test Item Value Reference Range Interpretation Comme nts SEDIMENTATION RATE (test cod e = 1017) 5 MM/HOUR David Pham PeruC-REACTIVE [id number] 00:00:00* Test Item Value Reference Range Interpretation Comme nts C-REACTIVE PROTEIN (test cod e = 3513) 0.7 MG/DL David Pham PeruHEMOGLOBIN [id number] 00:00:00* Test Item Value Reference Range Interpretation Comme nts HEMOGLOBIN A1c (test code = 51639) 8.0 % David Pham PeruCOMPREHENSIVE METABOLIC [id number] 00:00:00* Test Item Value Reference Range Interpretation Comme nts GLUCOSE (test code = 2217) 194 MG/DL BUN (test code = 2208) 14 MG/DL CREATININE (test code = 2214) 0.94 MG/DL eGFR (2020 CKD-EPI) (test co de = 59756) 86 ML/MIN/1.73 CALC BUN/CREAT (test code = 2235) 15 RATIO SODIUM (test code = 2231) 139 MEQ/L POTASSIUM (test code = 2228) 4.6 MEQ/L CHLORIDE (test code = 2215) 99 MEQ/L CARBON DIOXIDE (test code = 2206) 27 MEQ/L CALCIUM (test code = 2209) 9.3 MG/DL PROTEIN, TOTAL (test code = 2229) 7.2 G/DL ALBUMIN (test code = 2201) 4.2 G/DL CALC GLOBULIN (test code = 2240) 3.0 G/DL CALC A/G RATIO (test code = 2234) 1.4 RATIO BILIRUBIN, TOTAL (test code = 2207) 0.9 MG/DL ALKALINE PHOSPHATASE (test code = 2204) 51 U/L AST (test code = 2218) 38 U/L ALT (test code = 2219) 35 U/L David Pham [place]EDIM[place] [id number] 00:00:00* Test Item Value Reference Range Interpretation Comme nts SEDIMENTATION RATE (test cod e = 1017) 5 MM/HOUR David Pham PeruC-REACTIVE [id number] 00:00:00* Test Item Value Reference Range Interpretation Comme nts C-REACTIVE PROTEIN (test cod e = 3513) 0.7 MG/DL David Pham [place]HEMOGLOBIN [id number] 00:00:00* Test Item Value Reference Range Interpretation Comme nts HEMOGLOBIN A1c (test code = 28563) 8.0 % David Pham PeruCOMPREHENSIVE METABOLIC [id number] 00:00:00* Test Item Value Reference Range Interpretation Comme nts GLUCOSE (test code = 2217) 194 MG/DL BUN (test code = 2208) 14 MG/DL CREATININE (test code = 2214) 0.94 MG/DL eGFR (2020 CKD-EPI) (test co de = 25806) 86 ML/MIN/1.73 CALC BUN/CREAT (test code = 2235) 15 RATIO SODIUM (test code = 2231) 139 MEQ/L POTASSIUM (test code = 2228) 4.6 MEQ/L CHLORIDE (test code = 2215) 99 MEQ/L CARBON DIOXIDE (test code = 2206) 27 MEQ/L CALCIUM (test code = 2209) 9.3 MG/DL PROTEIN, TOTAL (test code = 2229) 7.2 G/DL ALBUMIN (test code = 2201) 4.2 G/DL CALC GLOBULIN (test code = 2240) 3.0 G/DL CALC A/G RATIO (test code = 2234) 1.4 RATIO BILIRUBIN, TOTAL (test code = 2207) 0.9 MG/DL ALKALINE PHOSPHATASE (test code = 2204) 51 U/L AST (test code = 2218) 38 U/L ALT (test code = 2219) 35 U/L David CarballoSEDIMENTATION [id number] 00:00:00* Test Item Value Reference Range Interpretation Comme nts SEDIMENTATION RATE (test cod e = 1017) 5 MM/HOUR David CarballoC-REACTIVE [id number] 00:00:00* Test Item Value Reference Range Interpretation Comme nts C-REACTIVE PROTEIN (test cod e = 3513) 0.7 MG/DL David CarballoHEMOGLOBIN [id number] 00:00:00* Test Item Value Reference Range Interpretation Comme nts HEMOGLOBIN A1c (test code = 72016) 8.0 % David CarballoCOMPREHENSIVE METABOLIC [id number] 00:00:00* Test Item Value Reference Range Interpretation Comme nts GLUCOSE (test code = 2217) 194 MG/DL BUN (test code = 2208) 14 MG/DL CREATININE (test code = 2214) 0.94 MG/DL eGFR (2020 CKD-EPI) (test co de = 99966) 86 ML/MIN/1.73 CALC BUN/CREAT (test code = 2235) 15 RATIO SODIUM (test code = 2231) 139 MEQ/L POTASSIUM (test code = 2228) 4.6 MEQ/L CHLORIDE (test code = 2215) 99 MEQ/L CARBON DIOXIDE (test code = 2206) 27 MEQ/L CALCIUM (test code = 2209) 9.3 MG/DL PROTEIN, TOTAL (test code = 2229) 7.2 G/DL ALBUMIN (test code = 2201) 4.2 G/DL CALC GLOBULIN (test code = 2240) 3.0 G/DL CALC A/G RATIO (test code = 2234) 1.4 RATIO BILIRUBIN, TOTAL (test code = 2207) 0.9 MG/DL ALKALINE PHOSPHATASE (test code = 2204) 51 U/L AST (test code = 2218) 38 U/L ALT (test code = 2219) 35 U/L David Pham Haris Notes Date/Time Note Provider Source David Castro [facility]2024-11-12 00:00:00 David Castro [facility]2024-08-13 00:00:00 [facility]2024-05-22 00:00:00 [facility]"
--- NOTE | 2024-11-04 18:50 | RAD REPORT ---
EXAMINATION: CTA HEAD CLINICAL INDICATION: Male, 74 years old. r sided weakness TECHNIQUE: Axial CT images were obtained through the head after intravenous contrast utilizing angiog raphic protocol with 3D post-processing (maximum intensity projection images, volume rendered images and/or shaded surface rendered images). One or more of the following dose reduction technique s were used: Automated exposure control, adjustment of the mA and/or kV according to patient size, and/or iterative reconstruction. Unless otherwise specified, incidental findings do not require dedic ated imaging follow-up. COMPARISON: 09/11/2023 FINDINGS: ICA: The petrous, cavernous, and supraclinoid segments of the bilateral internal carotid arteries are normal. CRIS: Anterior cerebral arteries are normal bilaterally. The anterior communicating artery is patent. MCA: Middle cerebral arteries are normal bilaterally. 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 Vertebrobasilar: The vertebral arteries are patent. The basilar artery is normal in appearance. 3D images confirm these findings. IMPRESSION: No evidence of large vessel occlusion or hemodynamically significant stenosis.
--- NOTE | 2024-11-04 18:53 | RAD REPORT ---
EXAMINATION: CT Neck Angio CLINICAL INDICATION: Male, 74 years old. [facility] right sided weakness Bed Name: 8 TECHNIQUE: Axial CT images were obtained from the aortic arch to the skull base after intravenous con trast utilizing angiographic protocol. Multiplanar reformats, as well as 3D post-processing (maximum intensity projection images, volume rendered images and/or shaded surface rendered images) w ere generated and reviewed. One or more of the following dose reduction techniques were used: Automated exposure control, adjustment of the mA and/or kV according to patient size, and/or iterativ e reconstruction. Unless otherwise specified, incidental findings do not require dedicated imaging follow-up. COMPARISON: No prior exam. FINDINGS: AORTA: The imaged aortic arch is normal. Normal three-vessel configuration of the arch. CCA: No artifact The common carotid arteries are patent and normal in caliber. ICA/ECA: Bilateral internal and external carotid arteries are patent. Mild to moderate calcific ather osclerotic plaque at the carotid bulbs. There is no significant internal carotid artery stenosis. VERTEBRAL: The cervical vertebral arteries are patent to the skull base. Vertebral arteries are codom inant. SOFT TISSUE: No significant neck soft tissue abnormalities. The visualized lung apices are clear. Sequelae of anterior plating at C5-C7. 3D images confirm these findings. IMPRESSION: No significant flow abnormality of the neck vessels is identified. NASCET criteria used to quantify ICA stenosis, with the following grading scheme: Mild 0-49% stenosis Moderate 50-69% stenosis Severe 70-99% stenosis Reference: [place] Symptomatic Carotid Endarterectomy Trial Collaborators; Sally ARGUETA, Delores DW, Kyler RB, et al. Beneficial effect of carotid endarterectomy in symptomatic patients with high-grade carotid stenosis. N Engl J Med. 1990Apr 24;325(7):445-53.
--- NOTE | 2024-11-04 18:53 | RAD REPORT ---
EXAM: CT Ct Stroke Brain Wo Cont HISTORY: STROKE ALERT COMPARISON: 09/29/2023 TECHNIQUE: Multiple contiguous axial images were obtained for a CT of the brain without contrast. Sag ittal and coronal reformats were performed. One or more of the following dose reduction techniques were used: Automated exposure control, adjus tment of the mA and kV according to patient size, and iterative reconstruction. Unless otherwise specified, incidental findings do not require dedicated imaging follow-up. FINDINGS: No evidence of hydrocephalus, intracranial hemorrhage, or extra-axial fluid collection. The brain is normal in morphology. The calvarium is intact. The visualized paranasal sinuses and mastoid air cells are essentially clear . IMPRESSION: No evidence of acute intracranial abnormality. THIS REPORT CONTAINS FINDINGS THAT MAY BE CRITICAL TO PATIENT CARE. The findings were verbally commun icated via telephone to Temo Han on 11/04/2024 6:43PM.
[2024-11-04 18:55] LABS: Absolute Basophils 0.1 K/uL (0-0.5); Absolute Eosinophils 0.1 K/uL (0-0.5); Absolute Lymphocytes (CBC) 1.7 K/uL (0.7-4.9); Absolute Monocytes 0.9 K/uL (0.1-1.3); Absolute Neutrophil 8.6 K/uL (1.8-8.0); Basophils % 0.6 % (0-1.3); Eosinophils % 1.3 % (0-4.4); Hematocrit 47.3 % (39.6-49.0); Hemoglobin 16.2 g/dL (13.6-17.9); Lymphocytes % 14.5 % (15.3-44.8); MCHC 34.2 g/dL (32.0-36.0); MCV 84.9 fL (80-100); MPV 8.3 fL (7.6-11.3); Monocytes % 7.9 % (3.3-12.3); Neutrophils % 75.7 % (41.7-73.7); Nucleated Red Blood Cells % 0.1 % (0-0); PT Prothrombin Time 11.5 SECONDS (10.0-13.0); Platelets 354 thou/uL (152-406); Protime INR 1.01; RBC Red Blood Cell Count 5.57 M/uL (4.33-5.43); Red Cell Distribution Width 14.6 % (12.1-15.2)
[2024-11-04 19:05] LABS: ALT/SGPT 21 U/L (16-61); AST/SGOT 15 U/L (15-37); Albumin 3.3 g/dL (3.4-5.0); Albumin/Globulin Ratio 0.8 (1.1-1.8); Alkaline Phosphatase 50 U/L (45-117); Anion Gap 7.4 mEq/L (5.0-15.0); BUN Blood Urea Nitrogen 30 mg/dL (7-18); Bicarbonate 29 mEq/L (21-32); Bilirubin Total 0.6 mg/dL (0.2-1.0); Glomerular Filtration Rate 41 ml/min (=/>90); Glucose Level 184 mg/dL (74-106); Magnesium 2.4 mg/dL (1.6-2.4); Potassium 4.4 mEq/L (3.5-5.1); Protein, Total 7.3 g/dL (6.4-8.2); Sodium Level 137 mEq/L (136-145); Troponin High Sensitivity 3.2 pg/mL (<58.9)
[2024-11-04 19:07] LABS: Bilirubin Direct < 0.2 mg/dL (0-0.2); Bilirubin Indirect, Calculated 0.4 mg/dL (0.2-0.8)
--- NOTE | 2024-11-04 19:28 | RAD REPORT ---
EXAMINATION: ONE VIEW CHEST XR CLINICAL INDICATION: Male, 74 years old.,right sided weakness TECHNIQUE: Frontal chest projection is submitted. Examination is limited by patient positioning and t echnique. COMPARISON: None FINDINGS: The lungs are well inflated and clear. No pneumothorax or sizable effusion. The heart is normal in s ize. Mediastinal contours are unremarkable. IMPRESSION: No acute intrathoracic abnormalities.
--- NOTE | 2024-11-04 19:55 | ER ---
Nurse's Notes [facility] Name: Tiffanie Albert Age: 74 yrs Sex: Male : 1950 Arrival Date: 11/04/2024 Time: 18:11 Bed 17 Private MD: Diagnosis: Acute CVA Presentation: 11/04 18:14 Chief complaint: Patient states: right sided weakness upon waking at 4 am today, went iw to bed at 1 am and was normal. 18:14 Method Of Arrival: Wheelchair iw 18:14 Acuity: DEEPA 2 iw 18:14 Coronavirus screen: At this time, the client does not indicate any symptoms associated kc6 with coronavirus-19. Ebola Screen: No symptoms or risks identified at this time. Onset of symptoms was November 04, 2024 at 01:00. 18:15 An acute neurological deficit is present. The patient has been moved to a treatment iw area. Pre-hospital glucose is not applicable to this patient. Initial Sepsis Screen: Does the patient meet any 2 criteria? No. Patient's initial sepsis screen is negative. Does the patient have a suspected source of infection? No. Patient's initial sepsis screen is negative. Risk Assessment: Do you want to hurt yourself or someone else? Patient reports no desire to harm self or others. Triage Assessment: 11/05 00:00 Neuro: Reports dizziness, weakness. rg5 03:00 The onset of the patients symptoms was. rg5 Stroke Activation: Physician: ED Attending; Name: Dr. Han; Notified At: 18:13; Arrived At: 18:13 Physician: Mid-Level Provider; Name: ; Notified At: 18:13; Arrived At: Physician: [not used]; Name: ; Notified At: ; Arrived At: Physician: [not used]; Name: ; Notified At: ; Arrived At: Physician: [not used]; Name: ; Notified At: ; Arrived At: Historical: - Allergies: 11/04 18:16 No Known Allergies; iw - PMHx: 18:16 DM2; iw - Immunization history:: Adult Immunizations up to date. - Infectious Disease History:: Denies. - Social history:: Smoking status: unknown. - Family history:: not pertinent. Screenin:15 VAN Screening: Arm Drift: Minor drift. Visual Disturbance: No visual disturbance noted. kc6 Aphasia: No aphasia noted. Neglect: No neglect noted. Alie Swallow Protocol Brief Cognitive Screen What is your name? Normal, Where are you right now? Normal, What year is it? Normal. Oral Mechanism Examination Facial Symmetry: Normal, Motion: Normal, Lip Closure: Normal, Oral Mechanism Result: Normal. 3 oz Water Swallow Challenge: Pt able to drink all water without stopping, coughing, choking or throat clearing: Yes Result: PASS Notified: Temo Han MD. 18:46 [facility] ED Fall Risk Assessment (Adult) History of falling in the last 3 months, hb including since admission No falls in past 3 months (0 pts) Confusion or Disorientation No (0 pts) Intoxicated or Sedated No (0 pts) Impaired Gait Yes (1 pt) Mobility Assist Device Used No (0 pt) Altered Elimination No (0 pt) Score/Fall Risk Level 3 or more points = High Risk Oriented to surroundings, Maintained a safe environment, Educated pt \T\ family on fall prevention, incl call for assistance when getting out of bed. Abuse screen: Denies threats or abuse. Denies injuries from another. Nutritional screening: No deficits noted. Tuberculosis screening: No symptoms or risk factors identified. Assessment: 18:14 General: Appears in no apparent distress. comfortable, well groomed, well developed, kc6 Behavior is calm, cooperative, appropriate for age. Pain: Denies pain. 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 Full function Weakness in right arm(s) leg(s) Gait is unsteady, Speech is normal, Facial symmetry appears normal, Facial symmetry: tongue is midline, Pupils are PERRLA, Intact Babinski is positive. Cardiovascular: Capillary refill < 3 seconds. Respiratory: Airway is patent Trachea midline Respiratory effort is even, unlabored, Respiratory pattern is regular, symmetrical. GI: No signs and/or symptoms were reported involving the gastrointestinal system. : No signs and/or symptoms were reported regarding the genitourinary system. EENT: No signs and/or symptoms were reported regarding the EENT system. Derm: No signs and/or symptoms reported regarding the dermatologic system. Skin is intact, is healthy with good turgor, Skin is pink, warm \T\ dry. Musculoskeletal: No signs and/or symptoms reported regarding the musculoskeletal system. Circulation, motion, and sensation intact. Range of motion: intact in all extremities. 19:30 Reassessment: Patient and/or family updated on plan of care and expected duration. Pain ha1 level reassessed. Patient is alert, oriented x 3, equal unlabored respirations, skin warm/dry/pink. 19:30 General: Appears in no apparent distress. comfortable, Behavior is calm, cooperative. al5 Pain: Denies pain. 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 Full function Weakness in right arm(s) leg(s) Gait is unsteady, Speech is normal, Facial symmetry appears normal, Facial symmetry: tongue is midline, Pupils are PERRLA, Intact. Cardiovascular: Capillary refill < 3 seconds Patient's skin is warm and dry. Rhythm is sinus rhythm. Respiratory: Airway is patent Respiratory effort is even, unlabored, Respiratory pattern is regular, symmetrical. GI: No signs and/or symptoms were reported involving the gastrointestinal system. : No signs and/or symptoms were reported regarding the genitourinary system. EENT: No signs and/or symptoms were reported regarding the EENT system. Derm: Skin is intact, Skin is pink, warm \T\ dry. normal. Musculoskeletal: Range of motion: intact in all extremities, Reports weakness in right arm and right leg. 19:30 Alie Swallow Protocol Exclusion Criteria: Exclusion Criteria Result: Proceed Brief al5 Cognitive Screen What is your name? Normal, Where are you right now? Normal, What year is it? Normal. Oral Mechanism Examination Facial Symmetry: Normal, Motion: Normal, Lip Closure: Normal, Oral Mechanism Result: Normal. 3 oz Water Swallow Challenge: Pt able to drink all water without stopping, coughing, choking or throat clearing: Yes Result: PASS. 20:19 VAN Scoring: Arm Drift: Minor drift Visual Disturbance: No visual disturbance noted. ha1 Aphasia: No aphasia noted. Neglect: No neglect noted. [place] Swallow Protocol Brief Cognitive Screen What is your name? Normal, Where are you right now? Normal, What year is it? Normal. Oral Mechanism Examination Facial Symmetry: Normal, Motion: Normal, Lip Closure: Normal, Oral Mechanism Result: Normal. 3 oz Water Swallow Challenge: Pt able to drink all water without stopping, coughing, choking or throat clearing: Yes MD Notified: Temo Han MD. TNKase (Tenecteplase) Screening: Not Applicable. Vital Signs: 18:16 BP 149 / 74; Pulse 75; Resp 16; Pulse Ox 98% on R/A; iw 19:30 BP 138 / 60; Pulse 63; Resp 17 S; Pulse Ox 98% on R/A; ha1 20:21 BP 145 / 75; Pulse 65; Resp 17 S; Pulse Ox 98% on R/A; ha1 NIH Stroke Scale Scores: 18:15 NIHSS Score: 2 kc6 19:30 NIHSS Score: 2 al5 ED Course: 18:12 Patient arrived in ED. kc6 18:13 Temo Han MD is Attending Physician. rt 18:14 Arm band placed on. kc6 18:15 Triage completed. iw 18:26 Initial lab(s) drawn, by me, sent to lab. Inserted saline lock: 20 gauge in right hb antecubital area, using aseptic technique. ,using aseptic technique. BY MATTHEW Blood collected. Flushed with 10 mL NS. 18:26 Patient maintains SpO2 saturation greater than 95% on room air. kc6 18:29 Stroke CXR 1 View In Process Unspecified. EDMS 18:33 CT Head Angio In Process Unspecified. EDMS 18:37 CT Neck Angio In Process Unspecified. EDMS 18:37 CT Stroke Brain w/o Contrast In Process Unspecified. EDMS 18:46 Patient has correct armband on for positive identification. Bed in low position. Call light in reach. Provided Education on: TESTS, RESULT TIMES. 18:46 Side rails up X2. Adult w/ patient. classroom monitor on. Pulse ox on. NIBP on. Door kc6 closed. Noise minimized. Lights dimmed. Warm blanket given. Pillow given. Verbal reassurance given. 19:54 Williams Thomas MD is Hospitalizing Provider. rt 20:14 Dianna Malone, SREE is Primary Nurse. al5 11/05 00:22 No provider procedures requiring assistance completed. Patient admitted, IV remains in ha1 place. Administered Medications: 11/04 20:19 Drug: Aspirin PO 325 mg PO once Route: PO; ha1 Medication: 22:00 VIS not applicable for this client. ha1 Point of Care Testing: Blood Glucose: 11/05 00:00 Blood Glucose: 168 mg/dL; rg5 Ranges: Outcome: 11/04 19:54 Decision to Hospitalize by Provider. rt 22:00 Admitted to ER Hold. Please see [employer] for further documentation. ha1 22:00 Condition: stable 22:00 Instructed on the need for admit, 11/05 17:05 Patient left the ED. kc6 NIH Stroke Scale - NIH Stroke Score Date: 11/04/2024 Time: 18:15 Total Score = 2 10. Dysarthria (speech clarity - read or repeat words) - 0(Normal) 11. Extinction and Inattention (visual/tactile/auditory/spatial/personal) - 0(No abnormality) 1a. Level of Consciousness (LOC) - 0(Alert) 1b. Level of Consciousness (LOC) (Month \T\ Age) - 0(Both) 1c. LOC Commands (Open \T\ Closes Eyes/Reconciliation Clerk) - 0(Both) 2. Best Gaze (Lateral Gaze Paresis) - 0(Normal) 3. Visual Field Loss - 0(No visual loss) 4. Facial Palsy - 0(Normal) 5a. Left Arm: Motor (10-second hold) - 0(No drift) 5b. Right Arm: Motor (10-second hold) - 1(Drift) 6a. Left Leg: Motor (5-second hold - always test supine) - 0(No drift) 6b. Right Leg: Motor (5-second hold - always test supine) - 1(Drift) 7. Limb Ataxia (finger/nose \T\ heel/fletcher - test with eyes open) - 0(Absent) 8. Sensory Loss (pinprick arms/legs/face) - 0(Normal) 9. Best Language: Aphasia (description/naming/reading) - 0(No aphasia) Initials: kc6 NIH Stroke Scale - NIH Stroke Score Date: 11/04/2024 Time: 19:30 Total Score = 2 10. Dysarthria (speech clarity - read or repeat words) - 0(Normal) 11. Extinction and Inattention (visual/tactile/auditory/spatial/personal) - 0(No abnormality) 1a. Level of Consciousness (LOC) - 0(Alert) 1b. Level of Consciousness (LOC) (Month \T\ Age) - 0(Both) 1c. LOC Commands (Open \T\ Closes Eyes/Reconciliation Clerk) - 0(Both) 2. Best Gaze (Lateral Gaze Paresis) - 0(Normal) 3. Visual Field Loss - 0(No visual loss) 4. Facial Palsy - 0(Normal) 5a. Left Arm: Motor (10-second hold) - 0(No drift) 5b. Right Arm: Motor (10-second hold) - 1(Drift) 6a. Left Leg: Motor (5-second hold - always test supine) - 0(No drift) 6b. Right Leg: Motor (5-second hold - always test supine) - 1(Drift) 7. Limb Ataxia (finger/nose \T\ heel/fletcher - test with eyes open) - 0(Absent) 8. Sensory Loss (pinprick arms/legs/face) - 0(Normal) 9. Best Language: Aphasia (description/naming/reading) - 0(No aphasia) Initials: al5 Signatures: Dispatcher [employer] EDSharon Munoz RN Mehnaz Billy RN RN hb Ayala, Heidy, RN RN ha1 Nicole Vega RN RN kc6 Temo Han MD MD rt Rhys Watkins RN RN rg5 Dianna Malone RN RN al5 Corrections: (The following items were deleted from the chart) 11/04 18:53 18:15 Reassessment: symone shrestha
--- NOTE | 2024-11-04 19:55 | EDPHYS ---
Physician Documentation [facility] Name: Tiffanie Albert Age: 74 yrs Sex: Male : 1950 Arrival Date: 11/04/2024 Time: 18:11 Bed 17 Private MD: ED Physician Temo Han HPI: 11/04 19:49 This 74 yrs old Male presents to ER via Wheelchair with complaints of S/S of Possible rt Stroke. 19:49 Patient presents to the ED with a weakness to the right arm, right leg. Patient's last rt known well was about 1 AM, states that he woke up at about 4 noticing the symptoms. Denies numbness, denies other acute complaints, symptoms are moderate in severity, no other aggravating or alleviating factors.. Historical: - Allergies: 18:16 No Known Allergies; iw - PMHx: 18:16 DM2; iw - Immunization history:: Adult Immunizations up to date. - Infectious Disease History:: Denies. - Social history:: Smoking status: unknown. - Family history:: not pertinent. ROS: 19:49 Constitutional: Negative for fever, chills, and weight loss, Cardiovascular: Negative rt for chest pain, palpitations, and edema, Respiratory: Negative for shortness of breath, cough, wheezing, and pleuritic chest pain, Abdomen/GI: Negative for abdominal pain, nausea, vomiting, diarrhea, and constipation, MS/Extremity: Negative for injury and deformity, Skin: Negative for injury, rash, and discoloration, 19:49 Neuro: Positive for weakness, Negative for loss of consciousness, Exam: 19:49 Constitutional: This is a well developed, well nourished patient who is awake, alert, rt and in no acute distress. Head/Face: Normocephalic, atraumatic. Chest/axilla: Normal chest wall appearance and motion. Nontender with no deformity. No lesions are appreciated. Cardiovascular: Regular rate and rhythm with a normal S1 and S2. No gallops, murmurs, or rubs. Normal PMI, no JVD. No pulse deficits. Respiratory: Lungs have equal breath sounds bilaterally, clear to auscultation and percussion. No rales, rhonchi or wheezes noted. No increased work of breathing, no retractions or nasal flaring. Abdomen/GI: Soft, non-tender, with normal bowel sounds. No distension or tympany. No guarding or rebound. No evidence of tenderness throughout. Skin: Warm, dry with normal turgor. Normal color with no rashes, no lesions, and no evidence of cellulitis. 19:49 ECG was reviewed by the Attending Physician. 19:49 Neuro: 3/5 strength in right upper, right lower extremities, strength otherwise intact, no cranial nerve deficits, speech normal, sensation intact, Vital Signs: 18:16 BP 149 / 74; Pulse 75; Resp 16; Pulse Ox 98% on R/A; iw 19:30 BP 138 / 60; Pulse 63; Resp 17 S; Pulse Ox 98% on R/A; ha1 20:21 BP 145 / 75; Pulse 65; Resp 17 S; Pulse Ox 98% on R/A; ha1 NIH Stroke Scale Scores: 18:15 NIHSS Score: 2 kc6 19:30 NIHSS Score: 2 al5 MDM: 18:13 Medical Screening Exam initiated rt 19:49 Differential diagnosis: CVA, TIA. TNKase (Tenecteplase) Screening: Contraindications: rt Patient reports onset of signs and symptoms of stroke greater than 6 hours ago: Yes. Data reviewed: vital signs, nurses notes. Consideration of Admission/Observation Patient was admitted/placed on observation. Management of patient was discussed with the following: Hospitalist: Agrees to admit. I considered the following discharge prescriptions or medication management in the emergency department Medications were administered in the Emergency Department. See MAR. Independent interpretation of the following test(s) in the Emergency Department CT Scan: My interpretation is No intracranial hemorrhage seen on interpretation of CT scan images. Care significantly affected by the following chronic conditions: Diabetes. Counseling: I had a detailed discussion with the patient and/or guardian regarding the historical points, exam findings, and any diagnostic results supporting the discharge/admit diagnosis, lab results, radiology results, the need for further work-up and treatment in the hospital. Response to treatment: There is no appreciated change of the patient's symptoms at this time. 11/04 18:19 Order name: Basic Metabolic Panel; Complete Time: 19:11 rt 11/04 18:19 Order name: CBC with Diff; Complete Time: 19:11 rt 11/04 18:19 Order name: Hepatic Function; Complete Time: 19:11 rt 11/04 18:19 Order name: High Sensitivity Troponin; Complete Time: 19:11 rt 11/04 18:19 Order name: Magnesium; Complete Time: 19:11 rt 11/04 18:19 Order name: Protime (+inr); Complete Time: 19:11 rt 11/04 18:19 Order name: Ptt, Activated; Complete Time: 19:11 rt 11/04 20:13 Order name: Urinalysis w/ reflexes; Complete Time: 16:22 EDMS 11/05 02:18 Order name: Glucose, Ancillary Testing; Complete Time: 16:22 EDMS 11/05 05:23 Order name: CBC with Automated Diff; Complete Time: 16:22 EDMS 11/05 05:44 Order name: Comprehensive Metabolic Panel; Complete Time: 16:22 EDMS 11/05 05:44 Order name: Lipid Profile; Complete Time: 16:22 EDMS 11/05 07:55 Order name: Glucose, Ancillary Testing; Complete Time: 16:22 EDMS 11/05 08:27 Order name: Phosphorus; Complete Time: 16:22 EDMS 11/05 12:51 Order name: Glucose, Ancillary Testing; Complete Time: 16:22 EDMS 11/04 18:19 Order name: CT Head Angio; Complete Time: 19:11 rt 11/04 18:19 Order name: CT Neck Angio; Complete Time: 19:11 rt 11/04 18:19 Order name: CT Stroke Brain w/o Contrast; Complete Time: 19:11 rt 11/04 18:19 Order name: Stroke CXR 1 View; Complete Time: 19:30 rt 11/05 12:40 Order name: MRI; Complete Time: 16:22 EDMS 11/04 18:19 Order name: Accucheck; Complete Time: 18:47 rt 11/04 18:19 Order name: Cardiac monitoring; Complete Time: 18:47 rt 11/04 18:19 Order name: EKG - Nurse/Tech; Complete Time: 18:47 rt 11/04 18:19 Order name: IV Saline Lock; Complete Time: 18:47 rt 11/04 18:19 Order name: Labs collected and sent; Complete Time: 18:47 rt 11/04 18:19 Order name: NPO; Complete Time: 18:47 rt 11/04 18:19 Order name: O2 Per Protocol; Complete Time: 18:47 rt 11/04 18:19 Order name: O2 Sat Monitoring; Complete Time: 18:47 rt 11/04 18:19 Order name: Stroke Swallow Screen; Complete Time: 18:47 rt EC:49 Rate is 69 beats/min. Rhythm is regular, Normal Sinus Rhythm with No ectopy. QRS [place] rt is Normal. CO interval is normal. QRS interval is normal. QT interval is normal. No Q waves. T waves are Normal. No ST changes noted. Interpreted by me. Administered Medications: 20:19 Drug: Aspirin PO 325 mg PO once Route: PO; ha1 Point of Care Testing: Blood Glucose: 11/05 00:00 Blood Glucose: 168 mg/dL; rg5 Ranges: Critical Glucose Levels:Adult <50 mg/dl or >400 mg/dl <40 mg/dl or >180 mg/dl Disposition Summary: 11/04/24 19:54 Hospitalization Ordered Notes: Hospitalization Status: Observation rt Provider: Williams Thomas rt Condition: Stable rt Problem: new rt Symptoms: are unchanged rt Bed/Room Type: Standard rt Location: Telemetry/MedSurg (observation)(11/05/24 16:09) Room Assignment: [facility](11/05/24 16:09) Diagnosis - Acute CVA rt Forms: - Medication Reconciliation Form rt - SBAR form rt - Leadership Thank You Letter rt NIH Stroke Scale - NIH Stroke Score Date: 11/04/2024 Time: 18:15 Total Score = 2 10. Dysarthria (speech clarity - read or repeat words) - 0(Normal) 11. Extinction and Inattention (visual/tactile/auditory/spatial/personal) - 0(No abnormality) 1a. Level of Consciousness (LOC) - 0(Alert) 1b. Level of Consciousness (LOC) (Month \T\ Age) - 0(Both) 1c. LOC Commands (Open \T\ Closes Eyes/[place]) - 0(Both) 2. Best Gaze (Lateral Gaze Paresis) - 0(Normal) 3. Visual Field Loss - 0(No visual loss) 4. Facial Palsy - 0(Normal) 5a. Left Arm: Motor (10-second hold) - 0(No drift) 5b. Right Arm: Motor (10-second hold) - 1(Drift) 6a. Left Leg: Motor (5-second hold - always test supine) - 0(No drift) 6b. Right Leg: Motor (5-second hold - always test supine) - 1(Drift) 7. Limb Ataxia (finger/nose \T\ heel/fletcher - test with eyes open) - 0(Absent) 8. Sensory Loss (pinprick arms/legs/face) - 0(Normal) 9. Best Language: Aphasia (description/naming/reading) - 0(No aphasia) Initials: kc6 NIH Stroke Scale - NIH Stroke Score Date: 11/04/2024 Time: 19:30 Total Score = 2 10. Dysarthria (speech clarity - read or repeat words) - 0(Normal) 11. Extinction and Inattention (visual/tactile/auditory/spatial/personal) - 0(No abnormality) 1a. Level of Consciousness (LOC) - 0(Alert) 1b. Level of Consciousness (LOC) (Month \T\ Age) - 0(Both) 1c. LOC Commands (Open \T\ Closes Eyes/[place]) - 0(Both) 2. Best Gaze (Lateral Gaze Paresis) - 0(Normal) 3. Visual Field Loss - 0(No visual loss) 4. Facial Palsy - 0(Normal) 5a. Left Arm: Motor (10-second hold) - 0(No drift) 5b. Right Arm: Motor (10-second hold) - 1(Drift) 6a. Left Leg: Motor (5-second hold - always test supine) - 0(No drift) 6b. Right Leg: Motor (5-second hold - always test supine) - 1(Drift) 7. Limb Ataxia (finger/nose \T\ heel/fletcher - test with eyes open) - 0(Absent) 8. Sensory Loss (pinprick arms/legs/face) - 0(Normal) 9. Best Language: Aphasia (description/naming/reading) - 0(No aphasia) Initials: al5 Signatures: Dispatcher [employer] EDMS Sharon Crabtree RN RN iw Marleny Bush RN RN ss Debora Mccabe RN RN vc1 Shayla Irwin RN RN ha1 Nicole Vega RN RN kc6 Temo Han MD MD rt Corrections: (The following items were deleted from the chart) 11/04 18:19 18:19 BASIC METABOLIC PANEL+C.LAB.BRZ ordered. EDMS EDMS 18:19 18:19 CBC+H.LAB.BRZ ordered. EDMS EDMS 18:19 18:19 HEPATIC FUNCTION+C.LAB.BRZ ordered. EDMS EDMS 18:19 18:19 Troponin High Sensitivity+C.LAB.BRZ ordered. EDMS EDMS 18:19 18:19 MAGNESIUM+C.LAB.BRZ ordered. EDMS EDMS 18:19 18:19 PROTIME (+INR)+COAG.LAB.BRZ ordered. EDMS EDMS 18:19 18:19 PTT, ACTIVATED+COAG.LAB.BRZ ordered. EDMS EDMS 18:20 18:20 Head Angio+CT.RAD.BRZ ordered. EDMS EDMS 18:20 18:20 Neck Angio+CT.RAD.BRZ ordered. EDMS EDMS 18:20 18:20 CT-STROKE BRAIN W/O CONTRAST+CT.RAD.BRZ ordered. EDMS EDMS 18:20 18:20 Chest Single View+RAD.RAD.BRZ ordered. EDMS EDMS 23:31 19:54 Telemetry/MedSurg (observation) rt vc1 23:31 19:54 rt vc1 11/05 16:09 11/04 23:31 BR ER HOLD vc1 ss 11/05 16:09 11/04 23:31 ERHOLD- vc1 ss
[2024-11-04] MEDS ORDERED: ASPIRIN 325 MG TAB ONE (20:07)
--- NOTE | 2024-11-04 20:11 | P.HP ---
Certification for Inpatient Patient admitted to: Inpatient With expected LOS: >2 Midnights Practitioner: I am a practitioner with admitting privileges, knowledge of patient current condition, hospital course, and medical plan of care. Services: Services provided to patient in accordance with Admission requirements found in Title 42 Section 412.3 of the Code of Federal Regulations Patient History Date of Service: 11/04/24 Reason for admission: Right-sided weakness History of Present Illness: 74 yrs old Male with past medical history of diabetes, brought to ER with weakness of the right arm and right leg which started early this morning. Patient denies any headache. He woke up at 1 AM noticing the symptoms of right sided weakness. Denies numbness. No seizure-like activities Denies any chest pain or shortness of breath. No nausea vomiting or diarrhea. No sick contacts. Denies any retention or incontinence Patient has difficulty in ambulating. Patient was assessed in the ER and was admitted for further management of stroke workup Home medications list reviewed: Yes - Past Medical/Surgical History Diabetic: Yes Past Medical History: Reviewed- Non-Contributory Past Surgical History: Reviewed- Non-Contributory - Family History Family History: Reviewed- Non-Contributory - Social History Smoking Status: Never smoker Review of Systems 10-point ROS is otherwise unremarkable Physical Examination - Vital Signs Temperature: 97.2 F Blood Pressure: 132/68 Pulse: 76 Respirations: 18 Pulse Ox (%): 9 - Physical Exam General: Alert, Oriented x3, Mild distress HEENT: Atraumatic, Normocephalic Neck: Supple, No Thyromegaly Respiratory: Clear to auscultation bilaterally, Normal air movement Cardiovascular: Regular rate/rhythm, Normal S1 S2 Capillary refill: <2 Seconds Gastrointestinal: Soft and benign, W/out hepatosplenomegaly Musculoskeletal: No clubbing, No swelling Integumentary: No rashes, No breakdown Neurological: Normal speech, Normal strength at 5/5 x4 extr, Cranial nerves 3-12 intact, Normal reflexes 2+ Lymphatics: No axilla or inguinal lymphadenopathy - Studies Laboratory Data (last 24 hrs) 11/04/24 11/04/24 11/04/24 18:34 18:34 18:34 WBC 11.40 H Hgb 16.2 Hct 47.3 Plt Count 354 PT 11.5 INR 1.01 APTT 31.0 Sodium 137 Potassium 4.4 BUN 30 H Creatinine 1.73 H Glucose 184 H Magnesium 2.4 Total Bilirubin 0.6 AST 15 ALT 21 Alkaline Phosphatase 50 Assessment and Plan - Plan CVA/TIA Weakness of right-sided body Started on aspirin and statin CT CTA findings noted MRI brain ordered Monitor neuro vital signs Monitor under telemetry PT OT evaluation CKD stage II Monitor renal parameters Electrolytes monitor and replace accordingly Diabetes Insulin sliding scale Accu-Chek before every meal and at bedtime GI/DVT prophylaxis Advanced directive full code Discharge Plan: Home Plan to discharge in: 48 Hours - Advance Directives Does patient have a Living Will: No Does patient have a Durable POA for Healthcare: No - Code Status/Comfort Care Code Status: Full Code Time Spent Managing Pts Care (In Minutes): 48
[2024-11-04] MEDS ORDERED: ACETAMINOPHEN 500 MG TAB PO PRN (21:37)
[2024-11-04] MEDS ORDERED: ONDANSETRON 4 MG/2 ML VIAL IV PRN (21:37)
[2024-11-04] MEDS ORDERED: GLUCAGON 1 MG/VIAL IM PRN (21:40)
[2024-11-04] MEDS ORDERED: D10W 125 ML IV PRN (21:40)
[2024-11-04 21:57] VITALS: BMI 25.7
[2024-11-04] MEDS ORDERED: NA CHLORIDE 0.9% 1,000 ML ONE (22:22)
[2024-11-05] MEDS: INSULIN REGULAR (HUMAN) 100 UNIT/ML SQ SCH
[2024-11-05] MEDS: NA CHLORIDE 0.9% 1,000 ML IV SCH (00:04)
[2024-11-05 05:22] LABS: Absolute Basophils 0.1 K/uL (0-0.5); Absolute Eosinophils 0.1 K/uL (0-0.5); Absolute Lymphocytes (CBC) 1.9 K/uL (0.7-4.9); Absolute Monocytes 0.7 K/uL (0.1-1.3); Absolute Neutrophil 6.1 K/uL (1.8-8.0); Basophils % 0.8 % (0-1.3); Eosinophils % 1.4 % (0-4.4); Hematocrit 45.5 % (39.6-49.0); Hemoglobin 15.3 g/dL (13.6-17.9); Lymphocytes % 21.3 % (15.3-44.8); MCH 28.9 pg (27.0-35.0); MCHC 33.6 g/dL (32.0-36.0); MCV 86.1 fL (80-100); MPV 7.6 fL (7.6-11.3); Monocytes % 7.7 % (3.3-12.3); Neutrophils % 68.8 % (41.7-73.7); Nucleated Red Blood Cells % 0.3 % (0-0); Platelets 333 thou/uL (152-406); RBC Red Blood Cell Count 5.28 M/uL (4.33-5.43); Red Cell Distribution Width 14.6 % (12.1-15.2)
[2024-11-05 05:42] LABS: Albumin/Globulin Ratio 0.8 (1.1-1.8); Anion Gap 9.8 mEq/L (5.0-15.0); Bilirubin Total 0.3 mg/dL (0.2-1.0); Globulin 3.7 g/dL (2.3-3.5); Potassium 3.8 mEq/L (3.5-5.1); Protein, Total 6.7 g/dL (6.4-8.2)
[2024-11-05] MEDS ORDERED: ASPIRIN EC 81 MG TAB PO ONE (08:09)
[2024-11-05] MEDS: ASPIRIN EC 81 MG TAB PO SCH (08:28)
[2024-11-05 08:38] LABS: Specific Gravity > 1.030 (1.005-1.030); Sqamous Epithelial None Seen /HPF (None Seen); Urine Bacteria None Seen /HPF (<20); Urine Bilirubin NEGATIVE (Negative); Urine Blood Negative (Negative); Urine Clarity Clear (Clear); Urine Color Light-Yellow (Yellow); Urine Culture Reflex Order NOT NEEDED; Urine Glucose 2+ (Negative); Urine Ketones NEGATIVE (Negative); Urine Microscopic Reflex YN ORDER UMIC; Urine Nitrite NEGATIVE (Negative); Urine Protein 2+ (Negative); Urine RBC <5 /HPF (None Seen); Urine Urobilinogen Normal (Normal); Urine WBC <5 /HPF (<5); Urine pH 6.5 (5.0-7.0)
--- NOTE | 2024-11-05 12:40 | RAD REPORT ---
EXAMINATION: MRI BRAIN WITHOUT CONTRAST CLINICAL INDICATION: Male, 74 years old.Right sided weakness CVA TECHNIQUE: Multiplanar multisequence MR images of the brain were obtained without intravenous contras t. Unless otherwise specified, incidental findings do not require dedicated imaging follow-up. COMPARISON: Head CT and CT angiogram of the same day FINDINGS: INTRACRANIAL: Midline structures are unremarkable. Single focus of diffusion restriction with corresponding T2/FLAIR hyperintensity involving the periph cari of the left thalamus versus posterior limb of internal capsule, suggesting a small infarct. There is mild brain atrophy with mildT2/FLAIR hyperintensities in the periventricular and deep white matter regions, nonspecific but likely representing chronic microvascular ischemic changes. There is no mass effect or midline shift. No abnormal extraaxial fluid collection. VASCULATURE: Normal signal voids in the larger intracranial arteries and dural venous sinuses. SINUSES: The paranasal sinuses and mastoid air cells are predominantly clear. BONE: The marrow signal pattern is within normal limits. IMPRESSION: Single focus of left basal ganglia signal abnormality as above, suggesting a small acute to subacute infarct. THIS REPORT CONTAINS FINDINGS THAT MAY BE CRITICAL TO PATIENT CARE. The findings were verbally commun icated via telephone to Kel Thomas MD on 11/05/2024 12:37 PM.
--- NOTE | 2024-11-05 13:03 | ECHO ---
HEIGHT: 6 ft 2 in WEIGHT: 200 lb 0 oz DATE OF STUDY: 11/05/[address]: Kel Thomas DO 2-DIMENSIONAL: YES M.MODE: YES DOPPLER: YES COLOR FLOW: YES TDS: NO PORTABLE: YES DEFINITY: NO BUBBLE STUDY: NO DIAGNOSIS: STROKE CARDIAC HISTORY: CATHERIZATION: NO SURGERY: NO PROSTHETIC VALVE: NO PACEMAKER: NO MEASUREMENTS (cm) DIASTOLIC (NORMALS) SYSTOLIC (NORMALS) IVSd 0.9 (0.6-1.2) LA Diam 3.5 (1.9-4.0) LVEF 60-65% LVIDd 4.4 (3.5-5.7) LVIDs 2.9 (2.0-3.5) %FS 34% LVPWd 1.0 (0.6-1.2) Ao Diam 2.9 (2.0-3.7) 2 DIMENSIONAL ASSESSMENT: RIGHT ATRIUM: NORMAL LEFT ATRIUM: NORMAL RIGHT VENTRICLE: NORMAL LEFT VENTRICLE: NORMAL TRICUSPID VALVE: NORMAL MITRAL VALVE: NORMAL PULMONIC VALVE: NORMAL AORTIC VALVE: NORMAL PERICARDIAL EFFUSION: NONE AORTIC ROOT: NORMAL LEFT VENTRICULAR WALL MOTION: NORMAL. DOPPLER/COLOR FLOW: NORMAL. COMMENTS: 1. NORMAL LEFT VENTRICULAR SYSTOLIC FUNCTION. LEFT VENTRICULAR EJECTION FRACTION 60-65%. NORMAL WALL MOTION. 2. NORMAL DIASTOLIC FUNCTION. TECHNOLOGIST: DEREK PEREZ
--- NOTE | 2024-11-05 16:30 | P.PN ---
Date of Service: 11/05/24 Subjective: Seen eating at bedside. He states his at this hospital last month. She also had a stroke. He says he wants to go home and does not want any additional care. I discussed going to rehab and getting stronger before going. He denies fevers and chills Review of Systems 10-point ROS is otherwise unremarkable except as noted Musculoskeletal: Weakness Physical Examination - Vital Signs Temperature: 97.2 F Blood Pressure: 132/68 Pulse: 76 Respirations: 18 Pulse Ox (%): 9 - Physical Exam General: Alert, Oriented x3, Mild distress HEENT: Atraumatic, Normocephalic Neck: Supple, No Thyromegaly Respiratory: Clear to auscultation bilaterally, Normal air movement Cardiovascular: Regular rate/rhythm, Normal S1 S2 Capillary refill: <2 Seconds Gastrointestinal: Soft and benign, W/out hepatosplenomegaly Musculoskeletal: No clubbing, No swelling Integumentary: No rashes, No breakdown Neurological: Normal speech, right lower leg weakness, Cranial nerves 3-12 intact, Normal reflexes 2+ Lymphatics: No axilla or inguinal lymphadenopathy - Studies Laboratory Data (last 24 hrs) 11/04/24 11/04/24 11/04/24 18:34 18:34 18:34 WBC 11.40 H Hgb 16.2 Hct 47.3 Plt Count 354 PT 11.5 INR 1.01 APTT 31.0 Sodium 137 Potassium 4.4 BUN 30 H Creatinine 1.73 H Glucose 184 H Magnesium 2.4 Total Bilirubin 0.6 AST 15 ALT 21 Alkaline Phosphatase 50 Assessment and Plan CVA Weakness of right-sided body Started on aspirin and statin MRI of the brain with single focus of left basal ganglia, small acute to subacute infarct Appreciate neurology help Monitor neuro vital signs Monitor under telemetry PT OT evaluation Passed swallow evaluation Echo reviewed. Normal LVEF. 60 to 65%. Normal diastolic function Neck CTA without abnormality Head CTA with no evidence of large vessel occlusion CKD stage II Monitor renal parameters Electrolytes monitor and replace accordingly Diabetes melitis with hyperglycemia Insulin sliding scale Accu-Chek before every meal and at bedtime Diabetic diet Dehydration UA with elevated specific gravity Continue low rate fluids Leukocytosis resolved GI/DVT prophylaxis Advanced directive full code Discharge Plan: Home Plan to discharge in: 48 Hours - Advance Directives Does patient have a Living Will: No Does patient have a Durable POA for Healthcare: No - Code Status/Comfort Care Code Status: Full Code Time Spent Managing Pts Care (In Minutes): 48
[2024-11-05] MEDS: ENOXAPARIN 40 MG/0.4 ML SQ SCH (18:41)
[2024-11-05] MEDS: ATORVASTATIN 20 MG TAB PO SCH (20:30)
[2024-11-06] MEDS ORDERED: FLU (Fluarix Triv) TS24-25(6MOS UP)/PF 45 MCG/0.5 ML Syringe IM ONE (07:15)
--- NOTE | 2024-11-06 13:57 | P.PN ---
Date of Service: 11/06/24 Subjective: Seen eating at bedside. Seen shaving with nursing staff at bedside. Endorses some mild right lower extremity weakness. Otherwise he is eating and drinking. States yes, Review of Systems 10-point ROS is otherwise unremarkable except as noted Musculoskeletal: Weakness Physical Examination - Vital Signs Temperature: 97.2 F Blood Pressure: 132/68 Pulse: 76 Respirations: 18 Pulse Ox (%): 9 - Physical Exam General: Alert, Oriented x3, Mild distress HEENT: Atraumatic, Normocephalic Neck: Supple, No Thyromegaly Respiratory: Clear to auscultation bilaterally, Normal air movement Cardiovascular: Regular rate/rhythm, Normal S1 S2 Capillary refill: <2 Seconds Gastrointestinal: Soft and benign, W/out hepatosplenomegaly Musculoskeletal: No clubbing, No swelling Integumentary: No rashes, No breakdown Neurological: Normal speech, right lower leg weakness, Cranial nerves 3-12 intact, Normal reflexes 2+ Lymphatics: No axilla or inguinal lymphadenopathy - Studies Laboratory Data (last 24 hrs) 11/04/24 11/04/24 11/04/24 18:34 18:34 18:34 WBC 11.40 H Hgb 16.2 Hct 47.3 Plt Count 354 PT 11.5 INR 1.01 APTT 31.0 Sodium 137 Potassium 4.4 BUN 30 H Creatinine 1.73 H Glucose 184 H Magnesium 2.4 Total Bilirubin 0.6 AST 15 ALT 21 Alkaline Phosphatase 50 Assessment and Plan CVA Weakness of right-sided body Started on aspirin and statin MRI of the brain with single focus of left basal ganglia, small acute to subacute infarct Appreciate neurology help Monitor neuro vital signs Monitor under telemetry PT OT evaluation Passed swallow evaluation Echo reviewed. Normal LVEF. 60 to 65%. Normal diastolic function Neck CTA without abnormality Head CTA with no evidence of large vessel occlusion Permissive hypertension -Blood pressures monitored -Per stroke protocol CKD stage II Monitor renal parameters Electrolytes monitor and replace accordingly Diabetes melitis with hyperglycemia Insulin sliding scale Accu-Chek before every meal and at bedtime Diabetic diet Dehydration UA with elevated specific gravity Continue low rate fluids Leukocytosis resolved Flu vaccine given GI/DVT prophylaxis with Lovenox Advanced directive full code Discharge Plan: Home Plan to discharge in: 48 Hours - Advance Directives Does patient have a Living Will: No Does patient have a Durable POA for Healthcare: No - Code Status/Comfort Care Code Status: Full Code Time Spent Managing Pts Care (In Minutes): 48
--- NOTE | 2024-11-06 16:51 | EKG ---
Test Date: 2024-11-04 Test Time: 18:42:05 Patient Observer: CHIVO MEASUREMENT RESULTS: Intervals: Rate: 69 WI: 172 QRSD: 64 QT: 402 QTc: 430 Wann: P: 72 WI: 172 QRS: 58 T: 63 INTERPRETIVE STATEMENTS: Normal sinus rhythm Low voltage QRS Borderline ECG No previous ECG available for comparison Electronically Signed On 11-06-24 16:45:51 GEOSCIENCE PROFESSOR by Luis Younger
[2024-11-07 05:21] LABS: Albumin/Globulin Ratio 0.8 (1.1-1.8); Anion Gap 8.9 mEq/L (5.0-15.0); Bilirubin Total 0.6 mg/dL (0.2-1.0); Globulin 3.6 g/dL (2.3-3.5); Potassium 3.9 mEq/L (3.5-5.1); Protein, Total 6.6 g/dL (6.4-8.2)
[2024-11-07] MEDS: POTASSIUM CL SA 10 MEQ TAB PO ONE (08:24)
--- NOTE | 2024-11-07 15:04 | P.PN ---
Subjective Date of Service: 11/07/24 Chief Complaint: Right-sided weakness Subjective: No new changes No acute events overnight Review of Systems 10-point ROS is otherwise unremarkable Physical Examination - Vital Signs Temperature: 98.6 F Blood Pressure: 168/76 Pulse: 88 Respirations: 16 Pulse Ox (%): 95 - Physical Exam General: Alert, Oriented x3 HEENT: Atraumatic Neck: Supple Respiratory: Clear to auscultation bilaterally Cardiovascular: No edema Capillary refill: <2 Seconds Gastrointestinal: Normal bowel sounds Musculoskeletal: No clubbing, No swelling, No contractures Neurological: Normal gait, Normal speech Lymphatics: No axilla or inguinal lymphadenopathy Assessment And Plan - Plan CVA Weakness of right-sided body Started on aspirin and statin MRI of the brain with single focus of left basal ganglia, small acute to subacute infarct Appreciate neurology help Monitor neuro vital signs Monitor under telemetry Passed swallow evaluation Echo reviewed. Normal LVEF. 60 to 65%. Normal diastolic function Neck CTA without abnormality Head CTA with no evidence of large vessel occlusion Awaiting PT/OT recommendation Permissive hypertension -Blood pressures monitored -Per stroke protocol CKD stage II Monitor renal parameters Electrolytes monitor and replace accordingly Diabetes melitis with hyperglycemia Insulin sliding scale Accu-Chek before every meal and at bedtime Diabetic diet Dehydration UA with elevated specific gravity Continue low rate fluids Leukocytosis resolved Flu vaccine given GI/DVT prophylaxis with Lovenox Disposition : Pending recommendations from PT/OT eval Discharge Plan: Home
[2024-11-08 07:59] LABS: Absolute Basophils 0.1 K/uL (0-0.5); Absolute Eosinophils 0.1 K/uL (0-0.5); Absolute Lymphocytes (CBC) 1.8 K/uL (0.7-4.9); Absolute Monocytes 0.9 K/uL (0.1-1.3); Absolute Neutrophil 7.4 K/uL (1.8-8.0); Basophils % 0.6 % (0-1.3); Eosinophils % 1.3 % (0-4.4); Hematocrit 47.5 % (39.6-49.0); Hemoglobin 15.9 g/dL (13.6-17.9); Lymphocytes % 17.9 % (15.3-44.8); MCH 28.6 pg (27.0-35.0); MCHC 33.4 g/dL (32.0-36.0); MCV 85.5 fL (80-100); MPV 7.7 fL (7.6-11.3); Monocytes % 9.1 % (3.3-12.3); Neutrophils % 71.1 % (41.7-73.7); Nucleated Red Blood Cells % 0.2 % (0-0); Platelets 346 thou/uL (152-406); RBC Red Blood Cell Count 5.56 M/uL (4.33-5.43); Red Cell Distribution Width 14.6 % (12.1-15.2)
[2024-11-08 08:12] LABS: Anion Gap 7.1 mEq/L (5.0-15.0); Potassium 4.1 mEq/L (3.5-5.1)
[2024-11-08 15:41] VITALS: O2SAT 98
--- NOTE | 2024-11-08 15:41 | P.DS ---
Admission Date: 11/04/24 Discharge Date: 11/08/24 Disposition: DC HOME/HOME HEALTH CARE Discharge Condition: FAIR Reason for Admission: Right-sided weakness Hospital Course: 1. Acute CVA Weakness of right-sided body, improving aspirin, plavix and statin MRI of the brain with single focus of left basal ganglia, small acute to subacute infarct Echo reviewed. Normal LVEF. 60 to 65%. Neck CTA without abnormality Head CTA with no evidence of large vessel occlusion 2. hypertension -Continue lisinopril. 3. CKD stage III a 4. Diabetes melitis with hyperglycemia start metformin Diabetic diet 74-year-old patient admitted with stroke, he is slowly improving, neurology was consulted, they recommended aspirin, statin, Plavix, folic acid and follow-up with neurology in 1 month, when I see the patient today he is doing well, he still has a little bit of right-sided weakness but as per the patient he is getting better, I offered him rehab but he said he had some things to taken care of at home as his recently, he is pretty adamant that he wanted to go home, otherwise no other acute issues going on so I am planning to discharge him to go home at his request. Subjective: No chest pain or shortness of breath. No nausea or vomiting. No abdominal pain. No obvious bleeding. Looks comfortable in the bed. Right sided Weakness improving, ambulating in the room. Objective: General appearance: Alert and comfortable CVS: Normal S1 and S2 Lungs: Clear to auscultation bilaterally Abdomen: Soft, bowel sounds present, no tenderness Extremities: No lower extremity edema [employer]ER: moves all 4 extremiteis, left 5/5, right 4-5/5 Vital Signs/Physical Exam: Temp Pulse Resp BP Pulse Ox 97.7 F 67 14 134/70 96 11/08/24 12:00 11/08/24 12:00 11/08/24 12:00 11/08/24 12:00 11/08/24 12:00 Laboratory Data at Discharge: WBC 10.30 thou/uL (4.3-10.9) 11/08/24 07:45 Hgb 15.9 g/dL (13.6-17.9) 11/08/24 07:45 Hct 47.5 % (39.6-49.0) 11/08/24 07:45 Plt Count 346 thou/uL (152-406) 11/08/24 07:45 PT 11.5 SECONDS (10.0-13.0) 11/04/24 18:34 INR 1.01 11/04/24 18:34 APTT 31.0 SECONDS (24.3-36.9) 11/04/24 18:34 Sodium 141 mEq/L (136-145) 11/08/24 07:45 Potassium 4.1 mEq/L (3.5-5.1) 11/08/24 07:45 BUN 20 mg/dL (7-18) H 11/08/24 07:45 Creatinine 1.25 mg/dL (0.70-1.30) 11/08/24 07:45 Glucose 150 mg/dL (74-106) H 11/08/24 07:45 Phosphorus 3.8 mg/dL (2.5-4.9) 11/05/24 05:13 Magnesium 2.4 mg/dL (1.6-2.4) 11/04/24 18:34 Total Bilirubin 0.6 mg/dL (0.2-1.0) 11/07/24 04:28 AST 17 U/L (15-37) 11/07/24 04:28 ALT 21 U/L (16-61) 11/07/24 04:28 Alkaline Phosphatase 44 U/L (45-117) L 11/07/24 04:28 Triglycerides 149 mg/dL (<150) 11/05/24 05:13 Cholesterol 141 mg/dL (<200) 11/05/24 05:13 HDL Cholesterol 32 mg/dL (40-60) L 11/05/24 05:13 Cholesterol/HDL Ratio 4.41 11/05/24 05:13 Home Medications: Lisinopril [Zestril] 2.5 mg PO DAILY 11/04/24 Aspirin [Aspirin EC 81 MG] 81 mg PO DAILY #30 11/08/24 Atorvastatin Calcium [Lipitor] 40 mg PO BEDTIME #30 tab 11/08/24 Clopidogrel Bisulfate [Plavix] 75 mg PO DAILY #30 11/08/24 Folic Acid 1 mg PO [id number] 30 Days 11/08/24 Metformin HCl [Glucophage*] 500 mg PO BIDWM #60 tab 11/08/24 New Medications: Aspirin [Aspirin EC 81 MG] 81 mg PO DAILY #30 Folic Acid 1 mg PO [id number] 30 Days Metformin HCl [Glucophage*] 500 mg PO BIDWM #60 tab Atorvastatin Calcium [Lipitor] 40 mg PO BEDTIME #30 tab Clopidogrel Bisulfate [Plavix] 75 mg PO DAILY #30 Followup: Ernesto Perkins MD [ASSOCIATE-ACTIVE - CAN ADMIT] - (f/u in 1 month) GRETEL CASTORENA [Primary Care Provider] - 1 Week (f/u with PCP in 1 week with CBC and CMP) Time spent managing pt's care (in minutes): 40
[2024-11-08 16:20] VITALS: BP 142/74; TEMP 98.2
--- NOTE | 2024-11-08 21:29 | CON ---
Reason For Consultation: Stroke. History Of Present Illness: Mr. Albert is a 74-year-old patient with diabetes mellitus and dyslipid emia, who reportedly was asleep, woke up around 1 a.m., noticing right-sided weakness and difficulty with coordination when he was tried to ambulate to the bathroom. He did not have additional features such as nausea, vomiting, any myalgias, arthralgias, rash, headache, weight change, or psychiatric c omplaints. He was brought to [facility] on the . His time of arrival was at 1815 and h is last known well around 1 a.m. and woke up around 4, noted the symptoms. As a result, he has devel oped a window for intravenous thrombolysis. CT scan of his head showed no acute ischemic or hemorrha gic findings. There was CT angiogram of head and neck showing no significant abnormalities in the ne ck vessels and the CT angiogram of the head showed no large vessel issues or hemodynamically signific ant stenosis. A subsequent brain MRI done following day identified single focus of left basal gangli a signal abnormalities suggestive of a small acute to subacute infarct and there was mild brain atrop hy in the periventricular and deep white matter region without mass effect. The patient actually cli nically has been improving significantly. He was able to ambulate to the bathroom with a rolling wal ker with his daughter with him. He did work with physical therapy and was able to ambulate over 250 feet with a rolling walker with contact guard assistance. Did have some mild difficulty with his bal ance, maintaining upright posture, and gait again was slightly unsteady and the patient actually was noted to get benefit from aggressive physical therapy. However, the patient decided he did not want to be in the hospital and received therapy while other option was therapy via Home Health. He was wi [facility] previously, but did not want to do so. He actually said his had just passe d away about a month ago and he had recently got back into his own exercise regimen, which was riding a bike several times a week and ambulating and lifting light weights He was treated with aspirin 81 mg daily. He received Lovenox 40 mg subcutaneously daily, Zofran, Lip itor, and IV fluid. Past Medical History: As noted above. Allergies: NO KNOWN DRUG ALLERGIES. Medications: Tylenol 500 mg every 4 hours as needed, aspirin 81 mg daily, Lipitor 40 mg at bedtime, Lovenox 40 mg subcutaneously daily, Zofran 4 mg every 6 hours as needed, and IV fluids he did receive 75 cc an hour. Family History: Noncontributory. Social History: No alcohol, tobacco, or drug use. Review of Systems: He denies any recent fevers, chills, nausea, vomiting, myalgias, arthralgias, rash, headache, weight change. No psychiatric issues. Physical Examination: Vital Signs: Blood pressure 142/74, pulse 74, respiratory rate 14 to 18, temperature 98.2, O2 satura tion 95%. Weight 200 pounds. Height 6 feet 2 inches. BMI 25.7. General: Mr. Albert is resting comfortably in bed. He is in no acute distress. HEENT: He is normocephalic, atraumatic. Sclerae anicteric. Oropharynx pink and moist. Neck: Supple. Chest: Clear. Heart: Regular. Extremities: No clubbing, cyanosis, or edema noted. Neurological: He has a subtle incoordination in his right upper extremity, but actually very strong, has regained good strength at least 5-/5. Some incoordination noted in right upper and lower extrem ities. Laboratory Studies: Complete blood count with differential is completely normal now. White blood ce ll count 10.3. His platelets are 346. INR 1.01. Sodium 141, potassium 4.1, chloride 111, carbon di oxide 27, BUN 20, creatinine 1.25. His calcium 8.5, blood sugars ranged 150-174, and urinalysis, spe cific gravity 1.03, glucose of 2+, protein 2+. Echocardiogram showed ejection fraction of 60%-65% an d was normal study. Assessment And Plan: Mr. Albert is a 74-year-old patient with hypertension, dyslipidemia, diabetes mellitus. He has had a stroke in his basal ganglia left affecting his right side. 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 Again, stroke affected the right body and left brain. I n terms of his plan, the patient is doing very well, ambulating well. It is recommended that the [facility] ient do outpatient physical therapy, but he declined that. He should continue with aspirin 81 mg germaine ly, Plavix 75 mg daily, folic acid 1 mg daily along with management of his dyslipidemia with Lipitor to target LDL less than 70 along with the normotensive control and improved with blood sugar control. He should follow up with Dr. Perkins in clinic within a month of discharge. MICHELLE/CRISTOBAL Voice ID: [id number] Report ID: [id number]
== END 2024-11-08 16:26 | disposition home health service (06) | DRG 65 ==
LOC: ER 18:11 → ERHOLD 20:10 → 2ND 11-05 16:54
PROVIDERS: ADMIT Family Medicine; ATTEND Hospitalist
DX: I63.9 Cerebral infarction, unspecified (principal); G81.91 Hemiplegia, unspecified affecting right dominant side; E86.0 Dehydration; E78.5 Hyperlipidemia, unspecified; I12.9 Hypertensive chronic kidney disease with stage 1 through stage 4 chronic kidney disease, or unspecified chronic kidney disease; N18.2 Chronic kidney disease, stage 2 (mild); E11.22 Type 2 diabetes mellitus with diabetic chronic kidney disease; E11.65 Type 2 diabetes mellitus with hyperglycemia; D72.829 Elevated white blood cell count, unspecified; R53.1 Weakness; R29.702 NIHSS score 2; Z63.4 Disappearance and death of family member; Z79.02 Long term (current) use of antithrombotics/antiplatelets; Z79.82 Long term (current) use of aspirin; Z79.899 Other long term (current) drug therapy
CPT/HCPCS: 36415; 70450; 70496; 70498; 70551; 71045; 80048; 80053; 80061; 80076; 81001; 82565; 82947; 83735; 84100; 84484; 85025; 85610; 85730; 92610; 93005; 93306; 97116; 97161; 97530; 99285; J1650; J7030; Q9967